=== PATIENT | female | born 1965 | race Caucasian/White ===

== ENCOUNTER 2022-03-29 16:02 | Inpatient (IN) ==
[2022-03-29] MEDS ORDERED: ONDANSETRON INJ 2 MG/ML 2 ML VIAL IV STA (16:37)
[2022-03-29] MEDS ORDERED: SODIUM CHLORIDE 0.9% 1000ML 500 ML IV ONE (16:38)
--- NOTE | 2022-03-29 16:41 | Emergency Department Note ---
Impression & Plan Colonic mass, Elevated LFTs, Liver masses, Anemia, Thrombocytosis, Lung metastases ED Provider Note NAME: SANJAY MOONEY AGE: 57 SEX: F : 1965 ARRIVES VIA: Walk-In INFORMANT: [Patient][, ] ED PROVIDER(S): [Satish Calzada MD] Chief Complaint: Abdominal fullness, mass, nausea vomiting HPI: Patient presents due to concern for abdominal pain with associated nausea vomiting going on over the last 3 weeks. Patient has noticed a mass or a hardened area in the mid abdomen. Patient feels as though she does have vomiting when she eats. The patient does still have her gallbladder. Patient does have exertional fatigue. No chest pains. No cough or fever. Patient has had the nausea vomiting. No changes in diet the patient denies any alcohol tobacco or drug use. The patient does have some associated pain in the upper abdomen described as achy and nonradiating. No recent falls or trauma. Patient is visiting from the [facility] over the . Because of the symptoms she presented with her mother bedside. ROS: See HPI for pertinent positives and negatives. A total of 10 systems were reviewed and otherwise negative. Past medical history: See below Surgical history: See below Social history: See below Physical Exam: GENERAL: NAD, [wearing a mask,] non-toxic. EYE EXAM: Scleral icterus noted. PERRL, no anisocoria and EOM's grossly intact w/o pain. NECK: Supple, no nuchal rigidity, no adenopathy, non-tender. No signs of meningismus. FROM of the neck with good chin to chest and neck extension. No stridor. LUNGS: Clear to auscultation. Normal chest wall mechanics. HEART: NSR, no MRG. ABDOMEN: Abdomen soft, distention and fullness in the upper and right upper quadrant, normo-active bowel sounds, no masses, no rebound or guarding. BACK: No CVA TTP. SKIN: No rashes and no bruising. UPPER EXTREMITIES: Upper extremities are grossly normal. LOWER EXTREMITIES: Grossly normal, 1-2+ symmetric bilateral lower extremity edema. No calf pain or erythema. Neurovascular intact distally with soft compartments and no crepitus. NEURO EXAM: A&O x3, cranial nerves II-XII grossly intact, normal speech, moves all 4 extremities. Differential diagnoses: Infection, dehydration, metabolic abnormality, hypo/hyperglycemia, electrolyte disturbance, anemia, hypoxia, cardiac sources, intracerebral event, toxicologic, neurologic, as well as other pathologies. Course: Patient was seen and evaluated the bedside. Full history physical exam was performed. EKG interpreted by me Normal sinus rhythm, rate of 79, normal intervals normal axis no ST elevations. Imaging Studies: See Below Cardiac monitoring: An order was placed for continuous cardiac monitoring. The monitor shows a rate of [] with [] rhythm. MDM: Patient was seen due to concern for abdominal fullness. Patient may have a mass on exam versus fullness of the liver. Patient did have blood work completed. along with troponin BNP chest x-ray and a CT of the abdomen pelvis. The patient's blood work shows white count of 20 [place] patient was ordered empiric antibiotics. Hemoglobin 9. The patient's platelet count does show thrombocytosis at 802,000. Hyponatremia at 128. The patient does have elevated bilirubin at 5.5. BNP is not elevated. Trace elevation in troponin. The patient CT abdomen pelvis does show concern for likely primary colon malignancy with metastatic disease to the bases of the lungs as well as the liver. P heparin at this time. Do believe the patient may haveatient's EKG is nonischemic. Patient does have trace elevation in troponin. Do not believe the patient requires heparin at this time. I did speak the on-call patient admitting representative Dr. Samuel who recommended obtaining a CEA level and CA 19-9 level. These were to be conveyed to the hospitalist service. He did state that they would talk and discuss coordinating a colonoscopy for biopsy. Given these concerning findings I did speak to the on-call hospitalist Dr. Clancy and the patient was admitted to the medicine service. Past Med/Surg History Social History Smoking Status: Former smoker Second Hand Exposure: No; Do You Dip or Chew Tobacco: No; Tobacco Cessation Education Requested by Patient: No Hx Alcohol Use: Yes Alcohol type: wine Hx Substance Use: No Preferred Language: Icelandic Communication Ability: Effective Cake Stripper Required: No Beliefs That Will Affect Care: None Current Living Situation: Alone Other Information That Helps Us Care for You: No Feels Safe at Home: Yes and No Is there a partner from a previous relationship who is making you feel unsafe now?: No Any Concerns about Your Family Situation: No Would You Like to Speak to Someone About Your Situation: No Safety Concerns: Feels Safe At This Time Assistive Devices: None Allergies Allergies Allergy/AdvReac Type Severity Reaction Status Date / Time No Known Allergies Allergy Verified 03/29/22 17:24 Home Meds Home Medications Medication Instructions Recorded Confirmed aripiprazole 5 mg tablet 5 mg PO DAILY 03/29/22 03/29/22 escitalopram oxalate 20 mg tablet 20 mg PO DAILY 03/29/22 03/29/22 lamotrigine 100 mg tablet 100 mg PO DAILY 03/29/22 03/29/22 Results & Data (ED) Vital Signs Vital Signs - 24 hr 03/29/22 16:05 03/29/22 16:37 03/29/22 18:03 Temperature 36.4 C L Temperature Source Temporal Artery Scan Pulse Rate 105 H 68 Pulse Rate [Apical] 76 Pulse Rhythm [Apical] Respiratory Rate 20 18 18 Respiratory Effort / Characteristics Non-Labored Spontaneous Non-Labored Respiratory Depth Normal Normal Respiratory Pattern Regular Blood Pressure 145/91 H Blood Pressure [Right Arm] 148/82 H Blood Pressure Mean 109 Blood Pressure Mean [Right Arm] 104 Pulse Oximetry 98 96 94 Oxygen Delivery Method Room Air Room Air Room Air Sepsis Recent Fever Within 48 Hours No Sepsis New/Unexplained Change in Mental Status No Sepsis Action Taken by Nursing No Action Required 03/29/22 20:03 Temperature Temperature Source Pulse Rate Pulse Rate [Apical] 80 Pulse Rhythm [Apical] Regular Respiratory Rate 18 Respiratory Effort / Characteristics Non-Labored Respiratory Depth Normal Respiratory Pattern Blood Pressure Blood Pressure [Right Arm] 138/86 Blood Pressure Mean Blood Pressure Mean [Right Arm] 103 Pulse Oximetry 95 Oxygen Delivery Method Room Air Sepsis Recent Fever Within 48 Hours Sepsis New/Unexplained Change in Mental Status Sepsis Action Taken by [facility] Medications Current Medication List: was personally reviewed by me Laboratory Data Attestation: I reviewed the patient's lab results. Result diagrams: 03/30/22 05:22 03/30/22 05:22 Lab Results 03/29/22 03/29/22 03/29/22 Range/Units 16:43 16:43 16:43 WBC 20.95 H (4.8-10.8) K/ul RBC 3.50 L (3.93-5.22) M/uL Hgb 9.1 L (12.0-16.0) g/dl POC Hgb (12.0-16.0) g/dl Hct 28.5 L (34.1-44.9) % POC Hct (37-47) % MCV 81.4 (80.0-100.0) fL MCH 26.0 (25.0-34.0) pg MCHC 31.9 L (32.0-36.0) g/dL RDW Std Deviation 68.8 H (36.4-46.3) fL RDW Coeff of Josef 23.5 H (11.5-14.5) % Plt Count 800 H (130-400) K/uL MPV 8.9 L (9.4-12.3) fL Immature Gran % (Auto) 0.8 % Neut % (Auto) 81.1 % Lymph % (Auto) 11.1 % Boone % (Auto) 6.8 % Eos % (Auto) 0.1 % Baso % (Auto) 0.1 % Neut # (Auto) 16.99 H (1.4-6.5) K/uL Lymph # (Auto) 2.32 (1.2-3.4) K/uL Boone # (Auto) 1.42 H (0.24-0.82) K/uL Eos # (Auto) 0.03 (0-0.50) K/uL Baso # (Auto) 0.03 (0-0.2) K/uL Immature Gran # (Auto) 0.16 H (0.00-0.02) K/uL Polychromasia 1+ Anisocytosis Present Target Cells 1+ POC Sodium (135-144) mmol/L Sodium 128 L (136-145) mmol/L POC Potassium (3.3-5.0) mmol/L Potassium 3.6 (3.5-5.1) mmol/L POC Chloride (101-112) mmol/L Chloride 95 L (98-107) mmol/L Carbon Dioxide 21 (21-32) mmol/L POC Total CO2 (24-31) mmol/L Anion Gap 12 H (3-11) POC Anion Gap (16-25) mmol/L POC BUN (7-18) mg/dl BUN 34 H (6-23) mg/dl Creatinine 1.34 H (0.6-1.2) mg/dl POC Creatinine (0.6-1.3) mg/dl Est Cr Clr Drug Dosing 36.0 ml/min Est GFR ( Amer) 50.8 ml/min Est GFR (Non-Af Amer) 43.9 ml/min BUN/Creatinine Ratio 25.4 H (10-20) Glucose 113 H (70-99(Fasting)) mg/dl POC Glucose (other) (70-99) mg/dl Calcium 9.1 (8.5-10.1) mg/dl POC Ioniz Calcium David (1.12-1.32) mmol/l Total Bilirubin 5.5 H (0.2-1.0) mg/dl AST 153 H (13-39) U/L ALT 96 H (7-52) U/L Alkaline Phosphatase 1191 H (34-104) U/L Troponin I High Sens 28.4 H (0-14) pg/ml B-Natriuretic Peptide 64 (0-100) pg/ml Total Protein 7.2 (6.0-8.3) gm/dl Albumin 2.7 L (3.4-5.0) gm/dl Globulin 4.5 H (2.5-4.0) gm/dl Albumin/Globulin Ratio 0.6 L (0.9-2) Lipase 5 L (11-82) U/L 03/29/ Range/Units 16:47 WBC (4.8-10.8) K/ul RBC (3.93-5.22) M/uL Hgb (12.0-16.0) g/dl POC Hgb 10.9 L (12.0-16.0) g/dl Hct (34.1-44.9) % POC Hct 32 L (37-47) % MCV (80.0-100.0) fL MCH (25.0-34.0) pg MCHC (32.0-36.0) g/dL RDW Std Deviation (36.4-46.3) fL RDW Coeff of Josef (11.5-14.5) % Plt Count (130-400) K/uL MPV (9.4-12.3) fL Immature Gran % (Auto) % Neut % (Auto) % Lymph % (Auto) % Boone % (Auto) % Eos % (Auto) % Baso % (Auto) % Neut # (Auto) (1.4-6.5) K/uL Lymph # (Auto) (1.2-3.4) K/uL Boone # (Auto) (0.24-0.82) K/uL Eos # (Auto) (0-0.50) K/uL Baso # (Auto) (0-0.2) K/uL Immature Gran # (Auto) (0.00-0.02) K/uL Polychromasia Anisocytosis Target Cells POC Sodium 132 L (135-144) mmol/L Sodium (136-145) mmol/L POC Potassium 3.7 (3.3-5.0) mmol/L Potassium (3.5-5.1) mmol/L POC Chloride 100 L (101-112) mmol/L Chloride (98-107) mmol/L Carbon Dioxide (21-32) mmol/L POC Total CO2 23 L (24-31) mmol/L Anion Gap (3-11) POC Anion Gap 14.0 L (16-25) mmol/L POC BUN 35 H (7-18) mg/dl BUN (6-23) mg/dl Creatinine (0.6-1.2) mg/dl POC Creatinine 1.4 H (0.6-1.3) mg/dl Est Cr Clr Drug Dosing ml/min Est GFR ( Amer) ml/min Est GFR (Non-Af Amer) ml/min BUN/Creatinine Ratio (10-20) Glucose (70-99(Fasting)) mg/dl POC Glucose (other) 125 H (70-99) mg/dl Calcium (8.5-10.1) mg/dl POC Ioniz Calcium David 1.15 (1.12-1.32) mmol/l Total Bilirubin (0.2-1.0) mg/dl AST (13-39) U/L ALT (7-52) U/L Alkaline Phosphatase (34-104) U/L Troponin I High Sens (0-14) pg/ml B-Natriuretic Peptide (0-100) pg/ml Total Protein (6.0-8.3) gm/dl Albumin (3.4-5.0) gm/dl Globulin (2.5-4.0) gm/dl Albumin/Globulin Ratio (0.9-2) Lipase (11-82) U/L Administered Medications Aripiprazole (Aripiprazole 5 Mg Tab) 5 mg PO DAILY LATESHA Stop: 04/29/22 08:59 Last Admin: 03/30/22 08:13 Dose: 5 mg Documented By: MILE Escitalopram Oxalate (Escitalopram Oxalate 20 Mg Tab) 20 mg PO DAILY LATESHA Stop: 04/29/22 08:59 Last Admin: 03/30/22 08:13 Dose: 20 mg Documented By: MILE Dextrose/Sodium Chloride (D5w And 1/2nss) 1,000 mls @ 100 mls/hr IV .Q10H LATESHA Stop: 04/28/22 21:38 Last Admin: 03/30/22 10:59 Dose: 100 mls/hr Documented By: Infusion: 03/30/22 09:11 Dose: 100 mls/hr Documented By: Infusion: 03/30/22 06:16 Dose: 100 mls/hr Documented By: Infusion: 03/29/22 23:27 Dose: 100 mls/hr Documented By: Infusion: 03/29/22 22:43 Dose: 0 mls/hr Documented By: Admin: 03/29/22 22:27 Dose: 100 mls/hr Documented By: ITZEL Piperacillin Sod/Tazobactam (Sod 3.375 gm/ Dextrose) 115 mls @ 28.75 mls/hr IV Q8H LATESHA; Protocol Stop: 04/09/22 01:59 Last Infusion: 03/30/22 12:36 Dose: 28.8 mls/hr Documented By: Admin: 03/30/22 11:18 Dose: 28.8 mls/hr Documented By: Infusion: 03/30/22 06:09 Dose: 0 mls/hr Documented By: Admin: 03/30/22 01:36 Dose: 28.8 mls/hr Documented By: ITZEL Lamotrigine (Lamotrigine 100 Mg Tab) 100 mg PO DAILY LATESHA Stop: 04/29/22 08:59 Last Admin: 03/30/22 08:14 Dose: 100 mg Documented By: MILE Morphine Sulfate (Morphine Sulfate 4 Mg/Ml 1 Ml Carp\Vial) 3 mg IV Q4H PRN PRN Reason: Pain Stop: 04/12/22 21:38 Last Admin: 03/30/22 08:09 Dose: 3 mg Documented By: Admin: 03/29/22 22:26 Dose: 3 mg Documented By: ITZEL Discontinued Medications Sodium Chloride (Nss 1000ml) 500 mls @ 999 mls/hr IV .Q31M ONE Stop: 03/29/22 17:08 Last Infusion: 03/29/22 17:25 Dose: 0 mls/hr Documented By: Admin: 03/29/22 16:47 Dose: 999 mls/hr Documented By: SILVIANO Piperacillin Sod/Tazobactam Sod (Zosyn) 4.5 gm in 120 mls @ 240 mls/hr IV NOW ONE Stop: 03/29/22 17:55 Last Admin: 03/29/22 20:10 Dose: Not Given Documented By: SILVIANO Potassium Chloride (K Landen / Wtr) 10 meq in 100 mls @ 100 mls/hr IV Q1H LATESHA Stop: 03/30/22 10:29 Last Infusion: 03/30/22 12:36 Dose: 0 mls/hr Documented By: Admin: 03/30/22 11:04 Dose: 100 mls/hr Documented By: Infusion: 03/30/22 10:30 Dose: 100 mls/hr Documented By: Admin: 03/30/22 09:30 Dose: 100 mls/hr Documented By: MILE Ioversol (Optiray 350 100ml) 83 ml IV ONCE ONE Stop: 03/29/22 18:18 Last Admin: 03/29/22 18:20 Dose: 83 ml Documented By: HU Ondansetron HCl (Ondansetron Inj 2 Mg/Ml 2 Ml Vial) 4 mg IV NOW STA Stop: 03/29/22 16:38 Last Admin: 03/29/22 16:48 Dose: 4 mg Documented By: SILVIANO Piperacillin Sod/Tazobactam Sod (Piperacillin/Tazobactam 4.5 Gm/120ml D5w) Confirm Administered Dose 4.5 gm IV .STK-MED ONE Stop: 03/29/22 20:07 Last Admin: 03/29/22 20:09 Dose: 4.5 gm Documented By: SILVIANO Imaging Data Radiologist's Impression: Abdomen/Pelvis CT 03/29/22 16:37 CT SCAN OF THE ABDOMEN AND PELVIS WITH IV CONTRAST CLINICAL HISTORY: Epigastric abdominal pain. COMPARISON STUDY: No priors. TECHNIQUE: Following the IV administration of 83 cc of Optiray 350, CT scan of the abdomen and pelvis is performed from the lung bases to the proximal femora. Images are reviewed in the axial, sagittal, and coronal planes. IV contrast was administered without complication. A dose lowering technique was utilized adhering to the principles of ALARA. CT DOSE: 291.18 mGy.cm FINDINGS: Lung bases: The heart is normal in size and without pericardial effusion. There are numerous (greater than 15) pulmonary nodules CT of both lung bases. These likely represent metastatic disease. The largest nodule is seen in the right l ower lobe in image #16 measures 1.4 cm. A 1.0 cm left lower lobe nodule is seen image #36. There is no airspace consolidation typical for pneumonia or pleural effusion. Liver: The contrast-enhanced liver is enlarged and heterogeneous, measuring 25.2 cm in length. The liver is diffusely infiltrated by confluent multifocal metastatic disease. A auto claim representative right lobe lesion on image #80 measures 7.5 cm. There is no intrahepatic biliary ductal dilatation. There is narrowing of the right and left lobe portal branches secondary to large hepatic mass lesions. The vessels remain patent with no intraluminal thrombus. Gallbladder: Gallbladder wall thickening is nonspecific and likely related to adjacent hepatocellular disease. There is no CT evidence of acute cholecystitis. Spleen: Normal in size and attenuation. Pancreas: Unremarkable. Adrenal glands: An indeterminate left adrenal nodule measures up to 1.4 cm. Kidneys: The contrast enhanced kidneys are normal in size and without hydronephrosis. The kidneys enhance heterogeneously. Abdominal vasculature: The abdominal aorta is normal in course and caliber noting moderate atherosclerotic calcification. Bowel: There is a mass lesion of the proximal ascending colon seen on axial image #280. This measures at least 5.5 cm maximum dimension and causes colocolic intussusception. There is no upstream obstruction. The small bowel loops are normal in caliber. The appendix is normal as visualized seen on image #319 Peritoneum: There is a small volume of abdominopelvic ascites. No intraperitoneal free air is seen. There is a fat-containing umbilical hernia. Lymphadenopathy: Mildly enlarged upper abdominal lymph nodes likely represent metastatic disease. A gastrohepatic node on image #196 measures 1.5 cm in short axis. Pelvic viscera: The bladder, uterus, and adnexa are normal as visualized. Skeletal structures: No lytic or blastic lesions are clearly seen. There are bilateral pars defects at L5 with moderate disc space narrowing and minimal anterolisthesis of L5-S1. IMPRESSION: 1. There is an approximately 5 cm mass lesion of the ascending colon. A colonic neoplasm is the diagnosis of exclusion. 2. The liver is enlarged and diffusely infiltrated by hepatic metastatic disease. 3. Multifocal pulmonary metastatic disease is seen at the lung bases. 4. Metastatic lymphadenopathy is seen in the upper abdomen. 5. The colonic mass causes colocolonic intussusception. No obstruction is seen. 6. Small volume of abdominopelvic ascites. 7. The kidneys enhance heterogeneously. Correlate with clinical findings and urinalysis. 8. Additional findings as above. ACT 112: Negative or not required by law. Electronically signed by: Rebel Johansen M.D. 03/29/2022 6:34 PM Discharge Plan Visit Data Chief Complaint: Abdominal Pain Stated Complaint: ABDOM PAIN, HARD SPOT ED Provider: Satish Calzada Discharge Problem: Colonic mass, Elevated LFTs, Liver masses, Anemia, Thrombocytosis, Lung metastases Patient Disposition: Admitted As Inpatient Discharge Instructions Interventions: ED Discharge Assessment Last Done: 03/29/22 22:32
[2022-03-29 16:51] LABS: Basophils # (auto) 0.03 K/uL (0-0.2); Basophils % (auto) 0.1 %; Eosinophils # (auto) 0.03 K/uL (0-0.50); Eosinophils % (auto) 0.1 %; Hematocrit (blood only) 28.5 % (34.1-44.9); Hemoglobin 9.1 g/dl (12.0-16.0); Immature Granulocytes # (auto) 0.16 K/uL (0.00-0.02); Immature Granulocytes % (auto) 0.8 %; Lymphocytes # (auto) 2.32 K/uL (1.2-3.4); Lymphocytes % (auto) 11.1 %; Mean Corpuscular Hgb Conc 31.9 g/dL (32.0-36.0); Mean Corpuscular Volume 81.4 fL (80.0-100.0); Mean Platelet Volume 8.9 fL (9.4-12.3); Monocytes # (auto) 1.42 K/uL (0.24-0.82); Monocytes % (auto) 6.8 %; Neutrophils # (auto) 16.99 K/uL (1.4-6.5); Neutrophils % (auto) 81.1 %; Platelet Count 800 K/uL (130-400); RDW Coefficient of Variation 23.5 % (11.5-14.5); RDW Standard Deviation 68.8 fL (36.4-46.3); White Blood Count 20.95 K/ul (4.8-10.8)
[2022-03-29 17:01] LABS: iSTAT Creatinine 1.4 mg/dl (0.6-1.3); iSTAT Hemoglobin 10.9 g/dl (12.0-16.0); iSTAT Ionized Calcium 1.15 mmol/l (1.12-1.32); iSTAT Potassium 3.7 mmol/L (3.3-5.0)
[2022-03-29 17:11] LABS: Albumin Globulin Ratio 0.6 (0.9-2); Albumin Level 2.7 gm/dl (3.4-5.0); BUN Creatinine Ratio 25.4 (10-20); Bilirubin,Total 5.5 mg/dl (0.2-1.0); Calcium 9.1 mg/dl (8.5-10.1); Est GFR (African American) 50.8 ml/min; Est GFR (Non-African American) 43.9 ml/min; Globulin 4.5 gm/dl (2.5-4.0); Potassium 3.6 mmol/L (3.5-5.1); Total Protein 7.2 gm/dl (6.0-8.3)
[2022-03-29 17:17] LABS: Troponin I High Sensitivity 28.4 pg/ml (0-14)
[2022-03-29 17:19] LABS: Anisocytosis Present; Polychromasia 1+; Target Cells 1+
[2022-03-29] MEDS ORDERED: PIPERACILLIN/TAZOBACTAM 4.5 GM/120 ML BAG IV ONE (17:26)
[2022-03-29] MEDS ORDERED: OPTIRAY 350 100ml IV ONE (18:17)
--- NOTE | 2022-03-29 18:36 | CT Scan Report ---
CT SCAN OF THE ABDOMEN AND PELVIS WITH IV CONTRAST CLINICAL HISTORY: Epigastric abdominal pain. COMPARISON STUDY: No priors. TECHNIQUE: Following the IV administration of 83 cc of Optiray 350, CT scan of the abdomen and pelvi s is performed from the lung bases to the proximal femora. Images are reviewed in the axial, sagittal , and coronal planes. IV contrast was administered without complication. A dose lowering technique wa s utilized adhering to the principles of ALARA. CT DOSE: 291.18 mGy.cm FINDINGS: Lung bases: The heart is normal in size and without pericardial effusion. There are numerous (greater than 15) pulmonary nodules CT of both lung bases. These likely represent metastatic disease. The lar gest nodule is seen in the right lower lobe in image #16 measures 1.4 cm. A 1.0 cm left lower lobe no dule is seen image #36. There is no airspace consolidation typical for pneumonia or pleural effusion. Liver: The contrast-enhanced liver is enlarged and heterogeneous, measuring 25.2 cm in length. The li melchor is diffusely infiltrated by confluent multifocal metastatic disease. A sales development representative right lobe lesion on image #80 measures 7.5 cm. There is no intrahepatic biliary ductal dilatation. There is cameron rowing of the right and left lobe portal branches secondary to large hepatic mass lesions. The vessel s remain patent with no intraluminal thrombus. Gallbladder: Gallbladder wall thickening is nonspecific and likely related to adjacent hepatocellular disease. There is no CT evidence of acute cholecystitis. Spleen: Normal in size and attenuation. Pancreas: Unremarkable. Adrenal glands: An indeterminate left adrenal nodule measures up to 1.4 cm. Kidneys: The contrast enhanced kidneys are normal in size and without hydronephrosis. The kidneys enh ance heterogeneously. Abdominal vasculature: The abdominal aorta is normal in course and caliber noting moderate atheroscle rotic calcification. Bowel: There is a mass lesion of the proximal ascending colon seen on axial image #280. This measures at least 5.5 cm maximum dimension and causes colocolic intussusception. There is no upstream obstruc tion. The small bowel loops are normal in caliber. The appendix is normal as visualized seen on imag e #319 Peritoneum: There is a small volume of abdominopelvic ascites. No intraperitoneal free air is seen. T here is a fat-containing umbilical hernia. Lymphadenopathy: Mildly enlarged upper abdominal lymph nodes likely represent metastatic disease. A g astrohepatic node on image #196 measures 1.5 cm in short axis. Pelvic viscera: The bladder, uterus, and adnexa are normal as visualized. Skeletal structures: No lytic or blastic lesions are clearly seen. There are bilateral pars defects a t L5 with moderate disc space narrowing and minimal anterolisthesis of L5-S1. IMPRESSION: 1. There is an approximately 5 cm mass lesion of the ascending colon. A colonic neoplasm is the diagn osis of exclusion. 2. The liver is enlarged and diffusely infiltrated by hepatic metastatic disease. 3. Multifocal pulmonary metastatic disease is seen at the lung bases. 4. Metastatic lymphadenopathy is seen in the upper abdomen. 5. The colonic mass causes colocolonic intussusception. No obstruction is seen. 6. Small volume of abdominopelvic ascites. 7. The kidneys enhance heterogeneously. Correlate with clinical findings and urinalysis. 8. Additional findings as above. ACT 112: Negative or not required by law. Electronically signed by: Rebel Johansen M.D. 03/29/2022 6:34 PM
[2022-03-29] MEDS ORDERED: PIPERACILLIN/TAZOBACTAM 4.5 GM/120ML D5W IV ONE (20:06)
[2022-03-29] MEDS ORDERED: ONDANSETRON INJ 2 MG/ML 2 ML VIAL IV PRN (21:39)
[2022-03-29 21:49] LABS: Appearance Urine Cloudy (Clear); Bacteria Urine Automated Negative (Negative); Blood Urine Negative (Negative); Color Urine Dark Yellow; Epithelial Cell Urine Auto 20-30 /lpf (0-5); Glucose Urine UA Negative (Negative); Ketones Urine Negative (Negative); Leukocyte Esterase Urine Trace (Negative); Nitrite Urine Positive (Negative); Protein Urine 1+ (Negative); Specific Gravity Urine 1.042 (1.000-1.030); Urobilinogen Urine Negative (Negative); pH Urine 5.5 (4.5-7.5)
[2022-03-29 21:54] LABS: Bilirubin Urine 2+ (Negative)
[2022-03-29] MEDS ORDERED: FLUARIX QUADRIVALENT 0.5 ML SYR IM ONE (22:00)
[2022-03-29 22:04] LABS: Amorphous Sediment Urine Present (None Prsent); RBC Urine Automated 0-4 /hpf (0-4)
[2022-03-29] MEDS: MoRPHine SULFATE 4 MG/ML 1 ML CARP\\VIAL IV PRN (22:26)
[2022-03-29] MEDS: D5W AND 1/2NSS 1,000 ML IV SCH (22:27)
--- NOTE | 2022-03-29 22:39 | History and Physical Report ---
DATE OF ADMISSION: 03/29/2022. CHIEF COMPLAINT: Abdominal pain, nausea, vomiting. HISTORY OF PRESENT ILLNESS: A 57-year-old female with past medical history significant for depression, presents with abdominal pain, nausea, vomiting. 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 Her doctors are in [place]. Her mother also lives part-time in [place] and part-time in [place]. She came for Thanksgiving yesterday to her mother's place and because of her symptoms, her mother brought her to the hospital today. The patient says she is having dull aching abdominal pain, mostly epigastric and left upper quadrant region, 4/10 in severity, constant pain for last couple of months . Also nausea dn not able to keep anything don for last few weeks. Lost 20 pounds in last 2-3 months.Denies any blood in stools or black stools. No constipation or diarrhea. Normal bladder movements. She says she is micturating a lot, but denies any hematuria. She has some swelling in the legs, says that this is there for last couple of weeks. Denies any chest pain, no shortness of breath, no headache, no runny nose, no sore throat, no cough, no fevers. Currently, resting comfortably and hemodynamically stable. ALLERGIES: No known drug allergies. PAST MEDICAL HISTORY: As mentioned above. PAST SURGICAL HISTORY: None as per patient. MEDICATIONS: The patient is on aripiprazole 5 mg p.o. daily, Lexapro 20 mg p.o. daily, Lamictal 100 mg p.o. daily. FAMILY HISTORY: Significant for mother has rheumatoid arthritis, back problems. Brother has diabetes, [place] in his 40s.. Father has diabetes, hyperlipidemia. Her younger sister had breast cancer at age of 27. SOCIAL HISTORY: Denies smoking. Alcohol, rarely. No drug use. REVIEW OF SYSTEMS: As per HPI. Rest of review of systems is negative. PHYSICAL EXAMINATION: GENERAL: The patient is of moderate build, not in acute distress. VITAL SIGNS: Temperature 36.4, pulse 80, respiratory rate 18, blood pressure 138/86, oxygen 95% on room air. HEENT: Pupils equal, round and reactive to light. Oral mucosa moist. NECK: No JVD, no neck masses. CARDIOVASCULAR: S1 and S2 heard. Regular rate and rhythm. No murmur, no gallop. RESPIRATORY SYSTEM: Normal AP diameter. No accessory muscle use. No wheezing, no crackles. ABDOMEN: Soft, bowel sounds present. Tenderness in the left upper quadrant region. No guarding, no rigidity, no distention. CENTRAL NERVOUS SYSTEM: Cranial nerves II through XII grossly intact, nonfocal. EXTREMITIES: Pedal edema present, no erythema seen. LABORATORY DATA: WBC 20.95, hemoglobin 9.1, hematocrit 28.5, platelets 800. Sodium 128, potassium 3.6, chloride 95, BUN 34, creatinine 1.34, serum glucose 113, calcium 9.1, total bilirubin 5.5, AST 153, ALT 196, alkaline phosphatase 1191, troponin I high sensitivity 28. Lipase 5. SARS-CoV-2 rapid test negative. IMAGING DATA: CT of abdomen and pelvis with IV contrast, approximately 5 cm mass lesion in the ascending colon. Colonic neoplasm is diagnosis of exclusion. The liver is enlarged and diffusely infiltrated with hepatic metastatic disease. Multifocal pulmonary metastatic disease is seen in the lung bases. Metastatic lymphadenopathy seen in the upper abdomen. No colonic mass or colocolonic intussusception. No obstruction is seen. Small volume of abdominopelvic ascites, Kidneys enhancing heterogeneously. Correlate with clinical findings and urinalysis. EKG: Normal sinus rhythm at a rate of 70, no acute ST changes seen. ASSESSMENT AND PLAN: This is a 57-year-old female who presents with 2 months of abdominal pain, ongoing nausea, vomiting, weight loss. 1. Abdominal pain, nausea, vomiting, elevated LFTs. CT abdomen and pelvis with IV contrast showing 5 cm ascending colon mass with diffuse hepatic metastatic disease and also pulmonary metastatic disease. Colonic neoplasm is diagnosis of exclusion, by CAT scan report. Discussed with GI that her LFTs looks like obstructive pattern. GI recommended for liver ultrasound and also IV antibiotics and plan for colonoscopy. We will keep the patient n.p.o. after midnight and on IV fluids, IV morphine p.r.n., IV antiemetics p.r.n. GI consult. 2. Anemia, probably secondary to above ongoing illness. Will get Hemoccult, iron studies, vitamin B12, folate levels. 3. Leukocytosis. On IV Zosyn. We will follow the cultures. Follow the repeat labs. 4. Hyponatremia. Sodium 128, possibly from nausea and vomiting. We will get him fluids. Will follow the repeat labs in the a.m. 5. Acute kidney injury: Creatinine 1.34. Creatinine was 0.7 in Epic labs in April 2018. Getting fluids. Follow the repeat labs in the a.m. 6. Mild elevation of troponin, mostly demand ischemia, the patient is asymptomatic. EKG is okay. We will follow the repeat troponins. 7. Depression: Continue her home medications. 8. Deep venous thrombosis prophylaxis: Sequential compression devices for now. If no procedure is planned, we will place on Lovenox. DISPOSITION: Closely monitor in medical floor. PT, OT prior to discharge. Social service to help with discharge planning. Job ID: [id number] MTDD
[2022-03-30] MEDS: PIPERACILLIN/TAZOBACTAM 3.375 GM in DEXTROSE 5% 100 ML IV SCH ×3 (01:36→18:23)
[2022-03-30] MEDS ORDERED: PIPERACILLIN/TAZOBACTAM 3.375 GM in DEXTROSE 5% 100 ML IV SCH (04:00)
[2022-03-30 05:34] LABS: Basophils # (auto) 0.03 K/uL (0-0.2); Basophils % (auto) 0.2 %; Eosinophils # (auto) 0.17 K/uL (0-0.50); Eosinophils % (auto) 1.2 %; Hemoglobin 7.6 g/dl (12.0-16.0); Immature Granulocytes # (auto) 0.08 K/uL (0.00-0.02); Immature Granulocytes % (auto) 0.6 %; Lymphocytes % (auto) 16.6 %; Mean Corpuscular Hemoglobin 25.8 pg (25.0-34.0); Mean Corpuscular Hgb Conc 30.4 g/dL (32.0-36.0); Mean Corpuscular Volume 84.7 fL (80.0-100.0); Mean Platelet Volume 8.9 fL (9.4-12.3); Monocytes # (auto) 0.99 K/uL (0.24-0.82); Monocytes % (auto) 7.1 %; Neutrophils % (auto) 74.3 %; Platelet Count 521 K/uL (130-400); RDW Coefficient of Variation 23.1 % (11.5-14.5); RDW Standard Deviation 70.2 fL (36.4-46.3); Red Blood Count 2.95 M/uL (3.93-5.22); White Blood Count 13.87 K/ul (4.8-10.8)
[2022-03-30 06:02] LABS: Troponin I High Sensitivity 22.6 pg/ml (0-14)
[2022-03-30 06:03] LABS: Anisocytosis Present; Target Cells 1+
[2022-03-30 06:06] LABS: Albumin Level 2.3 gm/dl (3.4-5.0); BUN Creatinine Ratio 21.6 (10-20); Bilirubin Direct 2.6 mg/dl (0-0.2); Bilirubin,Total 4.6 mg/dl (0.2-1.0); Calcium 8.2 mg/dl (8.5-10.1); Creatinine Clr Calc Pharmacy 35.7 ml/min; Est GFR (African American) 55.3 ml/min; Est GFR (Non-African American) 47.7 ml/min; Magnesium 2.2 mg/dl (1.7-2.4); Potassium 3.5 mmol/L (3.5-5.1)
[2022-03-30 06:21] LABS: Vitamin B12 > 1500 pg/ml (180-914)
--- NOTE | 2022-03-30 07:06 | Ultrasound Report ---
ULTRASOUND BILATERAL LOWER EXTREMITY VENOUS CLINICAL HISTORY: Lower extremity edema. COMPARISON STUDY: No priors. TECHNIQUE: Real-time, grayscale, and color Doppler sonography of the deep veins of the right and left lower extremity was performed from the inguinal crease to the calf. Compression and augmentation wer e utilized. FINDINGS: There is no sonographic evidence of deep venous thrombosis identified in the right or left lower extremity. The common femoral, superficial femoral, and popliteal veins are patent and normally compressible bilaterally. The greater saphenous vein and the profunda femoris vein at the junction w ith the common femoral vein are clear in both legs. The visualized calf veins are patent bilaterally. A popliteal cyst on the left measures 2.6 x 0.7 x 2.3 cm area IMPRESSION: 1. There is no sonographic evidence of deep venous thrombosis identified in the right or left lower e xtremity. 2. Left popliteal cyst. ACT 112: Negative or not required by law. Electronically signed by: Rebel Johansen M.D. 03/30/2022 7:05 AM
--- NOTE | 2022-03-30 07:32 | Ultrasound Report ---
ULTRASOUND RIGHT UPPER QUADRANT ABDOMEN CLINICAL HISTORY: Elevated hepatic transaminases. COMPARISON STUDY: Abdominal CT dated 03/29/2022 TECHNIQUE: Real-time, grayscale, and color flow sonography of the right upper quadrant of the abdomen was performed. Images are reviewed in the transverse and longitudinal planes. FINDINGS: Liver: The liver is enlarged, heterogeneous, and diffusely infiltrated by metastatic disease. There i s no intrahepatic biliary ductal dilatation. The main portal vein is patent. Gallbladder: Bladder wall thickening is nonspecific and likely related to adjacent hepatocellular dis ease. No shadowing gallstones are identified. There is no pericholecystic fluid. A sonographic Rodriguez 's sign is reportedly absent. The common bile duct measures up to 0.4 cm in diameter. Pancreas: Visualized portions of the pancreatic head and body are normal in appearance. Right kidney: Survey images of the right kidney demonstrate normal size and echotexture. There is no hydronephrosis. Ascites: None. IMPRESSION: 1. The liver is enlarged and diffusely infiltrated by metastatic disease. 2. No gallstones are identified. ACT 112: Negative or not required by law. Electronically signed by: Rebel Johansen M.D. 03/30/2022 7:31 AM
[2022-03-30] MEDS: MoRPHine SULFATE 4 MG/ML 1 ML CARP\\VIAL IV PRN (08:09)
[2022-03-30] MEDS: ESCITALOPRAM OXALATE 20 MG TAB PO SCH (08:13)
[2022-03-30] MEDS: ARIPiprazole 5 MG TAB PO SCH (08:13)
[2022-03-30] MEDS: lamoTRIgine 100 MG TAB PO SCH (08:14)
--- NOTE | 2022-03-30 08:26 | Hospitalist Progress Note ---
Date of Service March 30, 2022 Assessment & Plan (1) Colonic mass: (2) Liver masses: (3) Elevated LFTs: Plan 57-year-old female who presents with 2 months of abdominal pain, ongoing nausea, vomiting, weight loss. She was found to have colon mass with metastases to liver and lungs. 1. Abdominal pain, nausea, vomiting, elevated LFTs. Colon mass. Liver metastases. CT abdomen and pelvis with IV contrast showing 5 cm ascending colon mass with diffuse hepatic metastatic disease and also pulmonary metastatic disease. Colonic neoplasm is diagnosis of exclusion, by CAT scan report. Admitting provider discussed with GI that her LFTs looks like obstructive pattern. GI recommended for liver ultrasound and also IV antibiotics and plan for colonoscopy. IV fluids, IV morphine p.r.n., IV antiemetics p.r.n. GI consulted - plan for colonoscopy on Saturday, recommend also surgery consult and oncology Tumor markers ordered Surgery - no plan for surg. intervention at this time Oncology - CTA chest, IV venofer x2, follow up as outpt. w/ Dr. Meyer (who sees pt's father as well) 2. Anemia, probably secondary to above ongoing illness. Will get Hemoccult, iron studies, vitamin B12, folate levels. FOBT negative Hem/Onc following - recommend IV venofer x2 3. Leukocytosis. On IV Zosyn. We will follow the cultures. Follow the repeat labs. 4. Hyponatremia. Sodium 128 on admission, possibly from nausea and vomiting. fluids. Will follow the repeat labs 5. Acute kidney injury: Creatinine 1.34 on admission Now 1.25 . Creatinine was 0.7 in Epic labs in April 2018. Getting fluids. Follow the repeat labs 6. Mild elevation of troponin, mostly demand ischemia, the patient is asymptomatic. EKG is okay. repeated troponins - trended down 7. Depression: Continue her home medications. DVT prophylaxis: SCDs for now. Plan for colonoscopy and biopsy on Saturday DISPOSITION: medical floor Admission and Anticipated Discharge Date Admission Date: March 29, 2022 Subjective Patient seen in follow-up of nausea vomiting, new finding of colon mass, with metastases to liver, lungs Patient seen in the room, with GI Currently laying in bed, in no acute distress No fevers, chills, chest pain, shortness of breath, no abdominal pain Discussed in detail further steps, plan for colonoscopy on Saturday, further consultation with oncology Discussed with oncology, will provide IV Venofer, and will obtain CTA chest Review of Systems Review of Systems: All systems reviewed & are unremarkable except as noted in Subjective Physical Exam Physical Exam: GENERAL: The patient is of moderate build, not in acute distress. HEENT: Pupils equal, round and reactive to light. EOMI. Oral mucosa moist. NECK: No JVD, no neck masses. CARDIOVASCULAR: S1 and S2 heard. Regular rate and rhythm. No murmur, no gallop. RESPIRATORY: Normal AP diameter. No accessory muscle use. No wheezing, no crackles. ABDOMEN: Soft, bowel sounds present.+ mass at RUQ/epigastric region and RLQ. No guarding, no rigidity, no distention. NEURO:Awake alert oriented, answering questions appropriately, no facial asymmetry, moves extremities EXTREMITIES: Pedal edema present, no erythema seen. Results & Data Results & Data ([facility]) Vital Signs (Past 12 Hours) Vital Signs Temp Pulse Pulse Resp BP BP Pulse Ox 03/30/22 07:39 36.6 C 68 16 123/72 96 03/29/22 21:30 03/29/22 21:45 37.1 C 75 16 143/84 H 94 O2 Del Method 03/30/22 07:39 Room Air 03/29/22 21:30 Room Air 03/29/22 21:45 Room Air Laboratory Results 03/30/22 03/30/22 03/30/22 Range/Units 05:22 05:22 05:22 WBC 13.87 H (4.8-10.8) K/ul RBC 2.95 L (3.93-5.22) M/uL Hgb 7.6 L (12.0-16.0) g/dl POC Hgb (12.0-16.0) g/dl Hct 25.0 L (34.1-44.9) % POC Hct (37-47) % MCV 84.7 (80.0-100.0) fL MCH 25.8 (25.0-34.0) pg MCHC 30.4 L (32.0-36.0) g/dL RDW Std Deviation 70.2 H (36.4-46.3) fL RDW Coeff of Josef 23.1 H (11.5-14.5) % Plt Count 521 H (130-400) K/uL MPV 8.9 L (9.4-12.3) fL Immature Gran % (Auto) 0.6 % Neut % (Auto) 74.3 % Lymph % (Auto) 16.6 % Nye % (Auto) 7.1 % Eos % (Auto) 1.2 % Baso % (Auto) 0.2 % Neut # (Auto) 10.30 H (1.4-6.5) K/uL Lymph # (Auto) 2.30 (1.2-3.4) K/uL Nye # (Auto) 0.99 H (0.24-0.82) K/uL Eos # (Auto) 0.17 (0-0.50) K/uL Baso # (Auto) 0.03 (0-0.2) K/uL Immature Gran # (Auto) 0.08 H (0.00-0.02) K/uL Polychromasia Anisocytosis Present Target Cells 1+ POC Sodium (135-144) mmol/L Sodium 128 L (136-145) mmol/L POC Potassium (3.3-5.0) mmol/L Potassium 3.5 (3.5-5.1) mmol/L POC Chloride (101-112) mmol/L Chloride 97 L (98-107) mmol/L Carbon Dioxide 22 (21-32) mmol/L POC Total CO2 (24-31) mmol/L Anion Gap 9 (3-11) POC Anion Gap (16-25) mmol/L POC BUN (7-18) mg/dl BUN 27 H (6-23) mg/dl Creatinine 1.25 H (0.6-1.2) mg/dl POC Creatinine (0.6-1.3) mg/dl Est Cr Clr Drug Dosing 35.7 ml/min Est GFR ( Amer) 55.3 ml/min Est GFR (Non-Af Amer) 47.7 ml/min BUN/Creatinine Ratio 21.6 H (10-20) Glucose 103 H (70-99(Fasting)) mg/dl POC Glucose (other) (70-99) mg/dl Calcium 8.2 L (8.5-10.1) mg/dl POC Ioniz Calcium David (1.12-1.32) mmol/l Magnesium 2.2 (1.7-2.4) mg/dl Iron 15 L (35-150) mcg/dl TIBC 178 L (250-450) mcg/dl Unsaturated IBC 163 (155-355) mcg/dl Transferrin % Sat 8 L (15-50) % Total Bilirubin 4.6 H (0.2-1.0) mg/dl Direct Bilirubin 2.6 H (0-0.2) mg/dl AST 109 H (13-39) U/L ALT 75 H (7-52) U/L Alkaline Phosphatase 925 H (34-104) U/L Troponin I High Sens 22.6 H (0-14) pg/ml B-Natriuretic Peptide (0-100) pg/ml Total Protein 6.0 (6.0-8.3) gm/dl Albumin 2.3 L (3.4-5.0) gm/dl Globulin (2.5-4.0) gm/dl Albumin/Globulin Ratio (0.9-2) Lipase (11-82) U/L Vitamin B12 > 1500 H (180-914) pg/ml Folate 11.17 (>5.38) ng/ml Urine Color Urine Appearance (Clear) Urine pH (4.5-7.5) Ur Specific Mobile (1.000-1.030) Urine Protein (Negative) Urine Glucose (UA) (Negative) Urine Ketones (Negative) Urine Blood (Negative) Urine Nitrite (Negative) Urine Bilirubin (Negative) Urine Urobilinogen (Negative) Ur Leukocyte Esterase (Negative) Urine WBC (Auto) (0-5) /hpf Urine RBC (Auto) (0-4) /hpf U Hyaline Cast (Auto) (0-5) /lpf U Epithel Cells (Auto) (0-5) /lpf Urine Bacteria (Auto) (Negative) Amorphous Sediment (None Prsent) Urine Yeast SARS-CoV-2, RNA, NAAT (NEGATIVE) 03/29/22 03/29/22 03/29/22 Range/Units Unknown 21:00 16:47 WBC (4.8-10.8) K/ul RBC (3.93-5.22) M/uL Hgb (12.0-16.0) g/dl POC Hgb 10.9 L (12.0-16.0) g/dl Hct (34.1-44.9) % POC Hct 32 L (37-47) % MCV (80.0-100.0) fL MCH (25.0-34.0) pg MCHC (32.0-36.0) g/dL RDW Std Deviation (36.4-46.3) fL RDW Coeff of Josef (11.5-14.5) % Plt Count (130-400) K/uL MPV (9.4-12.3) fL Immature Gran % (Auto) % Neut % (Auto) % Lymph % (Auto) % Nye % (Auto) % Eos % (Auto) % Baso % (Auto) % Neut # (Auto) (1.4-6.5) K/uL Lymph # (Auto) (1.2-3.4) K/uL Nye # (Auto) (0.24-0.82) K/uL Eos # (Auto) (0-0.50) K/uL Baso # (Auto) (0-0.2) K/uL Immature Gran # (Auto) (0.00-0.02) K/uL Polychromasia Anisocytosis Target Cells POC Sodium 132 L (135-144) mmol/L Sodium (136-145) mmol/L POC Potassium 3.7 (3.3-5.0) mmol/L Potassium (3.5-5.1) mmol/L POC Chloride 100 L (101-112) mmol/L Chloride (98-107) mmol/L Carbon Dioxide (21-32) mmol/L POC Total CO2 23 L (24-31) mmol/L Anion Gap (3-11) POC Anion Gap 14.0 L (16-25) mmol/L POC BUN 35 H (7-18) mg/dl BUN (6-23) mg/dl Creatinine (0.6-1.2) mg/dl POC Creatinine 1.4 H (0.6-1.3) mg/dl Est Cr Clr Drug Dosing ml/min Est GFR ( Amer) ml/min Est GFR (Non-Af Amer) ml/min BUN/Creatinine Ratio (10-20) Glucose (70-99(Fasting)) mg/dl POC Glucose (other) 125 H (70-99) mg/dl Calcium (8.5-10.1) mg/dl POC Ioniz Calcium David 1.15 (1.12-1.32) mmol/l Magnesium (1.7-2.4) mg/dl Iron (35-150) mcg/dl TIBC (250-450) mcg/dl Unsaturated IBC (155-355) mcg/dl Transferrin % Sat (15-50) % Total Bilirubin (0.2-1.0) mg/dl Direct Bilirubin (0-0.2) mg/dl AST (13-39) U/L ALT (7-52) U/L Alkaline Phosphatase (34-104) U/L Troponin I High Sens (0-14) pg/ml B-Natriuretic Peptide (0-100) pg/ml Total Protein (6.0-8.3) gm/dl Albumin (3.4-5.0) gm/dl Globulin (2.5-4.0) gm/dl Albumin/Globulin Ratio (0.9-2) Lipase (11-82) U/L Vitamin B12 (180-914) pg/ml Folate (>5.38) ng/ml Urine Color Dark Yellow Urine Appearance Cloudy A (Clear) Urine pH 5.5 (4.5-7.5) Ur Specific Mobile 1.042 H (1.000-1.030) Urine Protein 1+ H (Negative) Urine Glucose (UA) Negative (Negative) Urine Ketones Negative (Negative) Urine Blood Negative (Negative) Urine Nitrite Positive A (Negative) Urine Bilirubin 2+ H (Negative) Urine Urobilinogen Negative (Negative) Ur Leukocyte Esterase Trace H (Negative) Urine WBC (Auto) 1-5 (0-5) /hpf Urine RBC (Auto) 0-4 (0-4) /hpf U Hyaline Cast (Auto) 1-5 (0-5) /lpf U Epithel Cells (Auto) 20-30 H (0-5) /lpf Urine Bacteria (Auto) Negative (Negative) Amorphous Sediment Present A (None Prsent) Urine Yeast Not Reportable SARS-CoV-2, RNA, NAAT NEGATIVE (NEGATIVE) 03/29/22 03/29/22 03/29/22 Range/Units 16:43 16:43 16:43 WBC 20.95 H (4.8-10.8) K/ul RBC 3.50 L (3.93-5.22) M/uL Hgb 9.1 L (12.0-16.0) g/dl POC Hgb (12.0-16.0) g/dl Hct 28.5 L (34.1-44.9) % POC Hct (37-47) % MCV 81.4 (80.0-100.0) fL MCH 26.0 (25.0-34.0) pg MCHC 31.9 L (32.0-36.0) g/dL RDW Std Deviation 68.8 H (36.4-46.3) fL RDW Coeff of Josef 23.5 H (11.5-14.5) % Plt Count 800 H (130-400) K/uL MPV 8.9 L (9.4-12.3) fL Immature Gran % (Auto) 0.8 % Neut % (Auto) 81.1 % Lymph % (Auto) 11.1 % Nye % (Auto) 6.8 % Eos % (Auto) 0.1 % Baso % (Auto) 0.1 % Neut # (Auto) 16.99 H (1.4-6.5) K/uL Lymph # (Auto) 2.32 (1.2-3.4) K/uL Nye # (Auto) 1.42 H (0.24-0.82) K/uL Eos # (Auto) 0.03 (0-0.50) K/uL Baso # (Auto) 0.03 (0-0.2) K/uL Immature Gran # (Auto) 0.16 H (0.00-0.02) K/uL Polychromasia 1+ Anisocytosis Present Target Cells 1+ POC Sodium (135-144) mmol/L Sodium 128 L (136-145) mmol/L POC Potassium (3.3-5.0) mmol/L Potassium 3.6 (3.5-5.1) mmol/L POC Chloride (101-112) mmol/L Chloride 95 L (98-107) mmol/L Carbon Dioxide 21 (21-32) mmol/L POC Total CO2 (24-31) mmol/L Anion Gap 12 H (3-11) POC Anion Gap (16-25) mmol/L POC BUN (7-18) mg/dl BUN 34 H (6-23) mg/dl Creatinine 1.34 H (0.6-1.2) mg/dl POC Creatinine (0.6-1.3) mg/dl Est Cr Clr Drug Dosing 36.0 ml/min Est GFR ( Amer) 50.8 ml/min Est GFR (Non-Af Amer) 43.9 ml/min BUN/Creatinine Ratio 25.4 H (10-20) Glucose 113 H (70-99(Fasting)) mg/dl POC Glucose (other) (70-99) mg/dl Calcium 9.1 (8.5-10.1) mg/dl POC Ioniz Calcium David (1.12-1.32) mmol/l Magnesium (1.7-2.4) mg/dl Iron (35-150) mcg/dl TIBC (250-450) mcg/dl Unsaturated IBC (155-355) mcg/dl Transferrin % Sat (15-50) % Total Bilirubin 5.5 H (0.2-1.0) mg/dl Direct Bilirubin (0-0.2) mg/dl AST 153 H (13-39) U/L ALT 96 H (7-52) U/L Alkaline Phosphatase 1191 H (34-104) U/L Troponin I High Sens 28.4 H (0-14) pg/ml B-Natriuretic Peptide 64 (0-100) pg/ml Total Protein 7.2 (6.0-8.3) gm/dl Albumin 2.7 L (3.4-5.0) gm/dl Globulin 4.5 H (2.5-4.0) gm/dl Albumin/Globulin Ratio 0.6 L (0.9-2) Lipase 5 L (11-82) U/L Vitamin B12 (180-914) pg/ml Folate (>5.38) ng/ml Urine Color Urine Appearance (Clear) Urine pH (4.5-7.5) Ur Specific Mobile (1.000-1.030) Urine Protein (Negative) Urine Glucose (UA) (Negative) Urine Ketones (Negative) Urine Blood (Negative) Urine Nitrite (Negative) Urine Bilirubin (Negative) Urine Urobilinogen (Negative) Ur Leukocyte Esterase (Negative) Urine WBC (Auto) (0-5) /hpf Urine RBC (Auto) (0-4) /hpf U Hyaline Cast (Auto) (0-5) /lpf U Epithel Cells (Auto) (0-5) /lpf Urine Bacteria (Auto) (Negative) Amorphous Sediment (None Prsent) Urine Yeast SARS-CoV-2, RNA, NAAT (NEGATIVE) Medications Administered Current Inpatient Medications Aripiprazole (Aripiprazole 5 Mg Tab) 5 mg PO DAILY LATESHA Stop: 04/29/22 08:59 Last Admin: 03/30/22 08:13 Dose: 5 mg Escitalopram Oxalate (Escitalopram Oxalate 20 Mg Tab) 20 mg PO DAILY LATESHA Stop: 04/29/22 08:59 Last Admin: 03/30/22 08:13 Dose: 20 mg Dextrose/Sodium Chloride (D5w And 1/2nss) 1,000 mls @ 100 mls/hr IV .Q10H LATESHA Stop: 04/28/22 21:38 Last Infusion: 03/30/22 06:16 Dose: 100 mls/hr Piperacillin Sod/Tazobactam (Sod 3.375 gm/ Dextrose) 115 mls @ 28.75 mls/hr IV Q8H LATESHA; Protocol Stop: 04/09/22 01:59 Last Infusion: 03/30/22 06:09 Dose: Infused Lamotrigine (Lamotrigine 100 Mg Tab) 100 mg PO DAILY LATESHA Stop: 04/29/22 08:59 Last Admin: 03/30/22 08:14 Dose: 100 mg Morphine Sulfate (Morphine Sulfate 4 Mg/Ml 1 Ml Carp\Vial) 3 mg IV Q4H PRN PRN Reason: Pain Stop: 04/12/22 21:38 Last Admin: 03/30/22 08:09 Dose: 3 mg Ondansetron HCl (Ondansetron Inj 2 Mg/Ml 2 Ml Vial) 4 mg IV Q6H PRN PRN Reason: Nausea Stop: 04/28/22 21:38
[2022-03-30] MEDS: POTASSIUM CHLORIDE / WTR 10 MEQ/100 ML PLCT IV SCH ×2 (09:30→11:04)
--- NOTE | 2022-03-30 10:05 | Electrocardiogram Report ---
Test Reason : Blood Pressure : / mmHG Vent. Rate : 079 BPM Atrial Rate : 079 BPM P-R Int : 138 ms QRS Dur : 082 ms QT Int : 396 ms P-R-T Axes : 070 011 047 degrees QTc Int : 454 ms Normal sinus rhythm Normal ECG No previous ECGs available Confirmed by Chencho Scott ([id number]) on 03/30/2022 10:05:36 AM Referred By: REFERRED SELF Confirmed By:Chencho Scott
[2022-03-30] MEDS: D5W AND 1/2NSS 1,000 ML IV SCH ×2 (10:59→21:47)
--- NOTE | 2022-03-30 11:54 | Surgery Consultation ---
Date of Consultation March 30, 2022 Assessment & Plan (1) Colonic mass: (2) Liver masses: (3) Elevated LFTs: Plan 57 year-old female presented to emergency department with progressively increasing abdominal pain for past few weeks along with associated nausea and vomiting that has been present for past 2 months. 12 pound weight loss, fatigue, and shortness of breath on exertion. Found to have leukocytosis, elevated LFTs, and CT scan with 5 cm right colonic mass causing colocolonic intussusception without obstruction with diffuse hepatic lesions and pulmonary lesions and upper abdominal lymphadenopathy concerning for metastatic colon cancer. Never had colonoscopy. No family history of colorectal cancer. GI planning for colonoscopy on Saturday. Plan: Discussed with patient that we need further information prior to proceeding with any surgical intervention with colonoscopy, biopsy, and oncology evaluation given extent of liver and lung lesions. There is no evidence of obstruction on CT scan and her exam is relatively benign other than mild distention and palpa ble fixed mass in the epigastrium (likely corresponding to the 7 cm hepatic lesion) and palpable mass in the RLQ. There is no peritonitis on exam. No indication for emergent or urgent surgical intervention at this time. Oncology consultation Continue bowel prep as per GI recommendations for colonoscopy on Saturday Continue current medical management Will follow along. Discussed with Dr. Gao who agrees with above. Supervising Physician Co-Signing Physician Notes Patient seen and examined and agree the above plan. History of Present Illness Reason for Consultation: Right colon mass Requesting Physician: Nhgia Vo MD Attending Physician: Nghia Vo MD History of Present Illness Padmini is a pleasant 57 year-old female with history of depression who presented to emergency department yesterday with progressively increasing abdominal pain for last few weeks and not feeling well for last 2 months. Has been having abdominal pain, nausea, vomiting, and shortness of breath with exertion for last 2 months. State she has lost about 12 pounds in last 2 months. Bowels have been moving regularly. States she felt a lump in her upper mid abdomen but was unsure what it was. States she has never had a colonoscopy. No family history of colon cancer. States sister had breast cancer when she was 27 and . Father has history of melanoma. Denies of any other cancers. Er work-up included labs which showed leukocytosis of 20K, elevated LFTS, CT scan of abdomen and pelvis showing 5 cm right colon mass causing colocolonic intussusception without evidence of obstruction and diffuse hepatic lesions and bilateral lower pulmonary metastic lesions and upper abdominal lymphadenopathy. Allergies Allergy/AdvReac Type Severity Reaction Status Date / Time No Known Allergies Allergy Verified 03/29/22 17:24 Home Medications Medication Instructions Recorded Confirmed Type aripiprazole 5 mg tablet 5 mg PO DAILY 03/29/22 03/29/22 History escitalopram oxalate 20 mg tablet 20 mg PO DAILY 03/29/22 03/29/22 History lamotrigine 100 mg tablet 100 mg PO DAILY 03/29/22 03/29/22 History Patient History Social History Smoking Status: Former smoker Second Hand Exposure: No; Do You Dip or Chew Tobacco: No; Tobacco Cessation Education Requested by Patient: No Hx Alcohol Use: Yes Alcohol type: wine Hx Substance Use: No Preferred Language: Montserratian Communication Ability: Effective Health Advisor Required: No Beliefs That Will Affect Care: None Current Living Situation: Alone Other Information That Helps Us Care for You: No Feels Safe at Home: Yes and No Is there a partner from a previous relationship who is making you feel unsafe now?: No Any Concerns about Your Family Situation: No Would You Like to Speak to Someone About Your Situation: No Safety Concerns: Feels Safe At This Time Assistive Devices: None Review of Systems Review of Systems: All systems reviewed & are unremarkable except as noted in HPI & below Physical Exam Constitutional: WD/WN, vitals as above cooperative and comfortable; no acute distress and not ill appearing Neck: normal visual inspection and trachea midline Respiratory: normal respiratory effort; no respiratory distress, no labored breathing and no retractions Gastrointestinal (Abdomen): Inspection/Auscultation: + abdomen distended (mildly distended) Percussion/Palpation: + abdominal mass (palpable fixed hard mass in epigastrium, fullness/palpable mass in the RLQ); abdomen nontender, no guarding, abdomen not rigid and + abdomen not soft Skin: no rashes, warm and dry Psychiatric: Orientation: alert and oriented x 3 Results & Data ([facility]) Vital Signs (Past 12 Hours) Vital Signs Temp Pulse Resp BP Pulse Ox O2 Del Method 03/30/22 07:39 36.6 C 68 16 123/72 96 Room Air Laboratory Results 03/30/22 03/30/22 03/30/22 Range/Units 10:49 10:49 05:22 WBC 13.87 H (4.8-10.8) K/ul RBC 2.95 L (3.93-5.22) M/uL Hgb 7.6 L (12.0-16.0) g/dl POC Hgb (12.0-16.0) g/dl Hct 25.0 L (34.1-44.9) % POC Hct (37-47) % MCV 84.7 (80.0-100.0) fL MCH 25.8 (25.0-34.0) pg MCHC 30.4 L (32.0-36.0) g/dL RDW Std Deviation 70.2 H (36.4-46.3) fL RDW Coeff of Josef 23.1 H (11.5-14.5) % Plt Count 521 H (130-400) K/uL MPV 8.9 L (9.4-12.3) fL Immature Gran % (Auto) 0.6 % Neut % (Auto) 74.3 % Lymph % (Auto) 16.6 % Pepin % (Auto) 7.1 % Eos % (Auto) 1.2 % Baso % (Auto) 0.2 % Neut # (Auto) 10.30 H (1.4-6.5) K/uL Lymph # (Auto) 2.30 (1.2-3.4) K/uL Pepin # (Auto) 0.99 H (0.24-0.82) K/uL Eos # (Auto) 0.17 (0-0.50) K/uL Baso # (Auto) 0.03 (0-0.2) K/uL Immature Gran # (Auto) 0.08 H (0.00-0.02) K/uL Polychromasia Anisocytosis Present Target Cells 1+ POC Sodium (135-144) mmol/L Sodium (136-145) mmol/L POC Potassium (3.3-5.0) mmol/L Potassium (3.5-5.1) mmol/L POC Chloride (101-112) mmol/L Chloride (98-107) mmol/L Carbon Dioxide (21-32) mmol/L POC Total CO2 (24-31) mmol/L Anion Gap (3-11) POC Anion Gap (16-25) mmol/L POC BUN (7-18) mg/dl BUN (6-23) mg/dl Creatinine (0.6-1.2) mg/dl POC Creatinine (0.6-1.3) mg/dl Est Cr Clr Drug Dosing ml/min Est GFR ( Amer) ml/min Est GFR (Non-Af Amer) ml/min BUN/Creatinine Ratio (10-20) Glucose (70-99(Fasting)) mg/dl POC Glucose (other) (70-99) mg/dl Calcium (8.5-10.1) mg/dl POC Ioniz Calcium David (1.12-1.32) mmol/l Magnesium (1.7-2.4) mg/dl Iron (35-150) mcg/dl TIBC (250-450) mcg/dl Unsaturated IBC (155-355) mcg/dl Transferrin % Sat (15-50) % Total Bilirubin (0.2-1.0) mg/dl Direct Bilirubin (0-0.2) mg/dl AST (13-39) U/L ALT (7-52) U/L Alkaline Phosphatase (34-104) U/L Troponin I High Sens (0-14) pg/ml B-Natriuretic Peptide (0-100) pg/ml Total Protein (6.0-8.3) gm/dl Albumin (3.4-5.0) gm/dl Globulin (2.5-4.0) gm/dl Albumin/Globulin Ratio (0.9-2) Lipase (11-82) U/L Tumor Marker AFP Pending Carcinoembryonic Ag 315.9 H (0-2.5) ng/ml CA 125 Antigen Pending Vitamin B12 (180-914) pg/ml Folate (>5.38) ng/ml Urine Color Urine Appearance (Clear) Urine pH (4.5-7.5) Ur Specific [place] (1.000-1.030) Urine Protein (Negative) Urine Glucose (UA) (Negative) Urine Ketones (Negative) Urine Blood (Negative) Urine Nitrite (Negative) Urine Bilirubin (Negative) Urine Urobilinogen (Negative) Ur Leukocyte Esterase (Negative) Urine WBC (Auto) (0-5) /hpf Urine RBC (Auto) (0-4) /hpf U Hyaline Cast (Auto) (0-5) /lpf U Epithel Cells (Auto) (0-5) /lpf Urine Bacteria (Auto) (Negative) Amorphous Sediment (None Prsent) Urine Yeast SARS-CoV-2, RNA, NAAT (NEGATIVE) 03/30/22 03/30/22 03/29/22 Range/Units 05:22 05:22 Unknown WBC (4.8-10.8) K/ul RBC (3.93-5.22) M/uL Hgb (12.0-16.0) g/dl POC Hgb (12.0-16.0) g/dl Hct (34.1-44.9) % POC Hct (37-47) % MCV (80.0-100.0) fL MCH (25.0-34.0) pg MCHC (32.0-36.0) g/dL RDW Std Deviation (36.4-46.3) fL RDW Coeff of Josef (11.5-14.5) % Plt Count (130-400) K/uL MPV (9.4-12.3) fL Immature Gran % (Auto) % Neut % (Auto) % Lymph % (Auto) % Pepin % (Auto) % Eos % (Auto) % Baso % (Auto) % Neut # (Auto) (1.4-6.5) K/uL Lymph # (Auto) (1.2-3.4) K/uL Pepin # (Auto) (0.24-0.82) K/uL Eos # (Auto) (0-0.50) K/uL Baso # (Auto) (0-0.2) K/uL Immature Gran # (Auto) (0.00-0.02) K/uL Polychromasia Anisocytosis Target Cells POC Sodium (135-144) mmol/L Sodium 128 L (136-145) mmol/L POC Potassium (3.3-5.0) mmol/L Potassium 3.5 (3.5-5.1) mmol/L POC Chloride (101-112) mmol/L Chloride 97 L (98-107) mmol/L Carbon Dioxide 22 (21-32) mmol/L POC Total CO2 (24-31) mmol/L Anion Gap 9 (3-11) POC Anion Gap (16-25) mmol/L POC BUN (7-18) mg/dl BUN 27 H (6-23) mg/dl Creatinine 1.25 H (0.6-1.2) mg/dl POC Creatinine (0.6-1.3) mg/dl Est Cr Clr Drug Dosing 35.7 ml/min Est GFR ( Amer) 55.3 ml/min Est GFR (Non-Af Amer) 47.7 ml/min BUN/Creatinine Ratio 21.6 H (10-20) Glucose 103 H (70-99(Fasting)) mg/dl POC Glucose (other) (70-99) mg/dl Calcium 8.2 L (8.5-10.1) mg/dl POC Ioniz Calcium David (1.12-1.32) mmol/l Magnesium 2.2 (1.7-2.4) mg/dl Iron 15 L (35-150) mcg/dl TIBC 178 L (250-450) mcg/dl Unsaturated IBC 163 (155-355) mcg/dl Transferrin % Sat 8 L (15-50) % Total Bilirubin 4.6 H (0.2-1.0) mg/dl Direct Bilirubin 2.6 H (0-0.2) mg/dl AST 109 H (13-39) U/L ALT 75 H (7-52) U/L Alkaline Phosphatase 925 H (34-104) U/L Troponin I High Sens 22.6 H (0-14) pg/ml B-Natriuretic Peptide (0-100) pg/ml Total Protein 6.0 (6.0-8.3) gm/dl Albumin 2.3 L (3.4-5.0) gm/dl Globulin (2.5-4.0) gm/dl Albumin/Globulin Ratio (0.9-2) Lipase (11-82) U/L Tumor Marker AFP Carcinoembryonic Ag (0-2.5) ng/ml CA 125 Antigen Vitamin B12 > 1500 H (180-914) pg/ml Folate 11.17 (>5.38) ng/ml Urine Color Urine Appearance (Clear) Urine pH (4.5-7.5) Ur Specific [place] (1.000-1.030) Urine Protein (Negative) Urine Glucose (UA) (Negative) Urine Ketones (Negative) Urine Blood (Negative) Urine Nitrite (Negative) Urine Bilirubin (Negative) Urine Urobilinogen (Negative) Ur Leukocyte Esterase (Negative) Urine WBC (Auto) (0-5) /hpf Urine RBC (Auto) (0-4) /hpf U Hyaline Cast (Auto) (0-5) /lpf U Epithel Cells (Auto) (0-5) /lpf Urine Bacteria (Auto) (Negative) Amorphous Sediment (None Prsent) Urine Yeast SARS-CoV-2, RNA, NAAT NEGATIVE (NEGATIVE) 03/29/22 03/29/22 03/29/22 Range/Units 21:00 16:47 16:43 WBC (4.8-10.8) K/ul RBC (3.93-5.22) M/uL Hgb (12.0-16.0) g/dl POC Hgb 10.9 L (12.0-16.0) g/dl Hct (34.1-44.9) % POC Hct 32 L (37-47) % MCV (80.0-100.0) fL MCH (25.0-34.0) pg MCHC (32.0-36.0) g/dL RDW Std Deviation (36.4-46.3) fL RDW Coeff of Josef (11.5-14.5) % Plt Count (130-400) K/uL MPV (9.4-12.3) fL Immature Gran % (Auto) % Neut % (Auto) % Lymph % (Auto) % Pepin % (Auto) % Eos % (Auto) % Baso % (Auto) % Neut # (Auto) (1.4-6.5) K/uL Lymph # (Auto) (1.2-3.4) K/uL Pepin # (Auto) (0.24-0.82) K/uL Eos # (Auto) (0-0.50) K/uL Baso # (Auto) (0-0.2) K/uL Immature Gran # (Auto) (0.00-0.02) K/uL Polychromasia Anisocytosis Target Cells POC Sodium 132 L (135-144) mmol/L Sodium (136-145) mmol/L POC Potassium 3.7 (3.3-5.0) mmol/L Potassium (3.5-5.1) mmol/L POC Chloride 100 L (101-112) mmol/L Chloride (98-107) mmol/L Carbon Dioxide (21-32) mmol/L POC Total CO2 23 L (24-31) mmol/L Anion Gap (3-11) POC Anion Gap 14.0 L (16-25) mmol/L POC BUN 35 H (7-18) mg/dl BUN (6-23) mg/dl Creatinine (0.6-1.2) mg/dl POC Creatinine 1.4 H (0.6-1.3) mg/dl Est Cr Clr Drug Dosing ml/min Est GFR ( Amer) ml/min Est GFR (Non-Af Amer) ml/min BUN/Creatinine Ratio (10-20) Glucose (70-99(Fasting)) mg/dl POC Glucose (other) 125 H (70-99) mg/dl Calcium (8.5-10.1) mg/dl POC Ioniz Calcium David 1.15 (1.12-1.32) mmol/l Magnesium (1.7-2.4) mg/dl Iron (35-150) mcg/dl TIBC (250-450) mcg/dl Unsaturated IBC (155-355) mcg/dl Transferrin % Sat (15-50) % Total Bilirubin (0.2-1.0) mg/dl Direct Bilirubin (0-0.2) mg/dl AST (13-39) U/L ALT (7-52) U/L Alkaline Phosphatase (34-104) U/L Troponin I High Sens (0-14) pg/ml B-Natriuretic Peptide 64 (0-100) pg/ml Total Protein (6.0-8.3) gm/dl Albumin (3.4-5.0) gm/dl Globulin (2.5-4.0) gm/dl Albumin/Globulin Ratio (0.9-2) Lipase (11-82) U/L Tumor Marker AFP Carcinoembryonic Ag (0-2.5) ng/ml CA 125 Antigen Vitamin B12 (180-914) pg/ml Folate (>5.38) ng/ml Urine Color Dark Yellow Urine Appearance Cloudy A (Clear) Urine pH 5.5 (4.5-7.5) Ur Specific [place] 1.042 H (1.000-1.030) Urine Protein 1+ H (Negative) Urine Glucose (UA) Negative (Negative) Urine Ketones Negative (Negative) Urine Blood Negative (Negative) Urine Nitrite Positive A (Negative) Urine Bilirubin 2+ H (Negative) Urine Urobilinogen Negative (Negative) Ur Leukocyte Esterase Trace H (Negative) Urine WBC (Auto) 1-5 (0-5) /hpf Urine RBC (Auto) 0-4 (0-4) /hpf U Hyaline Cast (Auto) 1-5 (0-5) /lpf U Epithel Cells (Auto) 20-30 H (0-5) /lpf Urine Bacteria (Auto) Negative (Negative) Amorphous Sediment Present A (None Prsent) Urine Yeast Not Reportable SARS-CoV-2, RNA, NAAT (NEGATIVE) 03/29/22 03/29/22 Range/Units 16:43 16:43 WBC 20.95 H (4.8-10.8) K/ul RBC 3.50 L (3.93-5.22) M/uL Hgb 9.1 L (12.0-16.0) g/dl POC Hgb (12.0-16.0) g/dl Hct 28.5 L (34.1-44.9) % POC Hct (37-47) % MCV 81.4 (80.0-100.0) fL MCH 26.0 (25.0-34.0) pg MCHC 31.9 L (32.0-36.0) g/dL RDW Std Deviation 68.8 H (36.4-46.3) fL RDW Coeff of Josef 23.5 H (11.5-14.5) % Plt Count 800 H (130-400) K/uL MPV 8.9 L (9.4-12.3) fL Immature Gran % (Auto) 0.8 % Neut % (Auto) 81.1 % Lymph % (Auto) 11.1 % Pepin % (Auto) 6.8 % Eos % (Auto) 0.1 % Baso % (Auto) 0.1 % Neut # (Auto) 16.99 H (1.4-6.5) K/uL Lymph # (Auto) 2.32 (1.2-3.4) K/uL Pepin # (Auto) 1.42 H (0.24-0.82) K/uL Eos # (Auto) 0.03 (0-0.50) K/uL Baso # (Auto) 0.03 (0-0.2) K/uL Immature Gran # (Auto) 0.16 H (0.00-0.02) K/uL Polychromasia 1+ Anisocytosis Present Target Cells 1+ POC Sodium (135-144) mmol/L Sodium 128 L (136-145) mmol/L POC Potassium (3.3-5.0) mmol/L Potassium 3.6 (3.5-5.1) mmol/L POC Chloride (101-112) mmol/L Chloride 95 L (98-107) mmol/L Carbon Dioxide 21 (21-32) mmol/L POC Total CO2 (24-31) mmol/L Anion Gap 12 H (3-11) POC Anion Gap (16-25) mmol/L POC BUN (7-18) mg/dl BUN 34 H (6-23) mg/dl Creatinine 1.34 H (0.6-1.2) mg/dl POC Creatinine (0.6-1.3) mg/dl Est Cr Clr Drug Dosing 36.0 ml/min Est GFR ( Amer) 50.8 ml/min Est GFR (Non-Af Amer) 43.9 ml/min BUN/Creatinine Ratio 25.4 H (10-20) Glucose 113 H (70-99(Fasting)) mg/dl POC Glucose (other) (70-99) mg/dl Calcium 9.1 (8.5-10.1) mg/dl POC Ioniz Calcium David (1.12-1.32) mmol/l Magnesium (1.7-2.4) mg/dl Iron (35-150) mcg/dl TIBC (250-450) mcg/dl Unsaturated IBC (155-355) mcg/dl Transferrin % Sat (15-50) % Total Bilirubin 5.5 H (0.2-1.0) mg/dl Direct Bilirubin (0-0.2) mg/dl AST 153 H (13-39) U/L ALT 96 H (7-52) U/L Alkaline Phosphatase 1191 H (34-104) U/L Troponin I High Sens 28.4 H (0-14) pg/ml B-Natriuretic Peptide (0-100) pg/ml Total Protein 7.2 (6.0-8.3) gm/dl Albumin 2.7 L (3.4-5.0) gm/dl Globulin 4.5 H (2.5-4.0) gm/dl Albumin/Globulin Ratio 0.6 L (0.9-2) Lipase 5 L (11-82) U/L Tumor Marker AFP Carcinoembryonic Ag (0-2.5) ng/ml CA 125 Antigen Vitamin B12 (180-914) pg/ml Folate (>5.38) ng/ml Urine Color Urine Appearance (Clear) Urine pH (4.5-7.5) Ur Specific [place] (1.000-1.030) Urine Protein (Negative) Urine Glucose (UA) (Negative) Urine Ketones (Negative) Urine Blood (Negative) Urine Nitrite (Negative) Urine Bilirubin (Negative) Urine Urobilinogen (Negative) Ur Leukocyte Esterase (Negative) Urine WBC (Auto) (0-5) /hpf Urine RBC (Auto) (0-4) /hpf U Hyaline Cast (Auto) (0-5) /lpf U Epithel Cells (Auto) (0-5) /lpf Urine Bacteria (Auto) (Negative) Amorphous Sediment (None Prsent) Urine Yeast SARS-CoV-2, RNA, NAAT (NEGATIVE) Diagnostic Findings CT SCAN OF THE ABDOMEN AND PELVIS WITH IV CONTRAST CLINICAL HISTORY: Epigastric abdominal pain. COMPARISON STUDY: No priors. TECHNIQUE: Following the IV administration of 83 cc of Optiray 350, CT scan of the abdomen and pelvis is performed from the lung bases to the proximal femora. Images are reviewed in the axial, sagittal, and coronal planes. IV contrast was administered without complication. A dose lowering technique was utilized adhering to the principles of ALARA. CT DOSE: 291.18 mGy.cm FINDINGS: Lung bases: The heart is normal in size and without pericardial effusion. There are numerous (greater than 15) pulmonary nodules CT of both lung bases. These likely represent metastatic disease. The largest nodule is seen in the right lower lobe in image #16 measures 1.4 cm. A 1.0 cm left lower lobe nodule is seen image #36. There is no airspace consolidation typical for pneumonia or pleural effusion. Liver: The contrast-enhanced liver is enlarged and heterogeneous, measuring 25.2 cm in length. The liver is diffusely infiltrated by confluent multifocal metastatic disease. A patient representative right lobe lesion on image #80 measures 7.5 cm. There is no intrahepatic biliary ductal dilatation. There is narrowing of the right and left lobe portal branches secondary to large hepatic mass lesions. The vessels remain patent with no intraluminal thrombus. Gallbladder: Gallbladder wall thickening is nonspecific and likely related to adjacent hepatocellular disease. There is no CT evidence of acute cholecystitis. Spleen: Normal in size and attenuation. Pancreas: Unremarkable. Adrenal glands: An indeterminate left adrenal nodule measures up to 1.4 cm. Kidneys: The contrast enhanced kidneys are normal in size and without hydronephrosis. The kidneys enhance heterogeneously. Abdominal vasculature: The abdominal aorta is normal in course and caliber noting moderate atherosclerotic calcification. Bowel: There is a mass lesion of the proximal ascending colon seen on axial image #280. This measures at least 5.5 cm maximum dimension and causes colocolic intussusception. There is no upstream obstruction. The small bowel loops are normal in caliber. The appendix is normal as visualized seen on image #319 Peritoneum: There is a small volume of abdominopelvic ascites. No intraperitoneal free air is seen. There is a fat-containing umbilical hernia. Lymphadenopathy: Mildly enlarged upper abdominal lymph nodes likely represent metastatic disease. A gastrohepatic node on image #196 measures 1.5 cm in short axis. Pelvic viscera: The bladder, uterus, and adnexa are normal as visualized. Skeletal structures: No lytic or blastic lesions are clearly seen. There are bilateral pars defects at L5 with moderate disc space narrowing and minimal anterolisthesis of L5-S1. IMPRESSION: 1. There is an approximately 5 cm mass lesion of the ascending colon. A colonic neoplasm is the diagnosis of exclusion. 2. The liver is enlarged and diffusely infiltrated by hepatic metastatic disease. 3. Multifocal pulmonary metastatic disease is seen at the lung bases. 4. Metastatic lymphadenopathy is seen in the upper abdomen. 5. The colonic mass causes colocolonic intussusception. No obstruction is seen. 6. Small volume of abdominopelvic ascites. 7. The kidneys enhance heterogeneously. Correlate with clinical findings and urinalysis. 8. Additional findings as above. ULTRASOUND RIGHT UPPER QUADRANT ABDOMEN CLINICAL HISTORY: Elevated hepatic transaminases. COMPARISON STUDY: Abdominal CT dated 03/29/2022 TECHNIQUE: Real-time, grayscale, and color flow sonography of the right upper quadrant of the abdomen was performed. Images are reviewed in the transverse and longitudinal planes. FINDINGS: Liver: The liver is enlarged, heterogeneous, and diffusely infiltrated by metastatic disease. There is no intrahepatic biliary ductal dilatation. The main portal vein is patent. Gallbladder: Bladder wall thickening is nonspecific and likely related to adjacent hepatocellular disease. No shadowing gallstones are identified. There is no pericholecystic fluid. A sonographic Rodriguez's sign is reportedly absent. The common bile duct measures up to 0.4 cm in diameter. Pancreas: Visualized portions of the pancreatic head and body are normal in appearance. Right kidney: Survey images of the right kidney demonstrate normal size and echotexture. There is no hydronephrosis. Ascites: None. IMPRESSION: 1. The liver is enlarged and diffusely infiltrated by metastatic disease. 2. No gallstones are identified.
--- NOTE | 2022-03-30 12:08 | Gastrointestinal Consultation ---
Date of Consultation March 30, 2022 Assessment & Plan (1) Elevated LFTs: (2) Colonic mass: (3) Liver masses: Patient is a 57 years old female who presented with diffuse abdominal pain, nausea and vomiting symptoms, unexpected weight loss, found to have elevated WBC, iron deficiency anemia, hyponatremia, elevated LFTs and abd imaging studies showing a 5 cm ascending colon mass, causing colocolonic intussusception without obstruction, liver, upper abdominal lymph nodes, and pulmonary metastatic processes. - Heme/Onc and Surgery consults - Obtain tumor markers: AFP, CA 125, CEA - CL diet up till Saturday, then NPO after midnight for colonoscopy on Monday 04/02. In light of colon mass and intussusception, will start giving her low dose Miralax prep today up till Saturday Supervising Physician Co-Signing Physician Notes Late entry: Patient was seen and examined on 03/30 with CHRISTOS Gil whose note reflects our findings and plan. History of Present Illness Reason for Consultation: Colon mass, elevated LFTs with liver mets. Requesting Physician: Dr. Nghia Vo Attending Physician: Dr. Fani Mcdonough History of Present Illness Patient is a 57 years old female who presented with nausea, vomiting, abdominal pain and unexpected weight loss in the last 2 months. She apparently lives in [place], currently visiting her parents in [place]. States that she has been having worsening nausea, vomiting and abdominal pain when she eats. Lost about 12 pounds in the last 2 months. Denies any sick contact, travels. On evaluation she was found to have leukocytosis with WBC of 20, anemia with H&H of 7.6/25, also signs of hyponatremia, elevated LFTs with total bilirubin of 4.6, AST 109, ALT 75, alkaline phosphatase 925. Abdominal imaging studies with liver ultrasound and CT of the abdomen and pelvis showed a 5 cm mass lesion in ascending colon area causing colocolonic intussusception but no obstruction is noted, liver is enlarged with diffusely infiltrated hepatic metastatic disease, there also multifocal pulmonary metastatic disease in the lung bases, metastatic lymphadenopathy in the upper abdomen. Patient has never had a colonoscopy in the past. She denies any family historie s of colorectal cancer. Allergies Allergy/AdvReac Type Severity Reaction Status Date / Time No Known Allergies Allergy Verified 04/02/22 08:22 Home Medications Medication Instructions Recorded Confirmed Type aripiprazole 5 mg tablet 5 mg PO DAILY 03/29/22 03/29/22 History escitalopram oxalate 20 mg tablet 20 mg PO DAILY 03/29/22 03/29/22 History lamotrigine 100 mg tablet 100 mg PO DAILY 03/29/22 03/29/22 History Patient History Medical History (Updated 04/08/22 @ 13:22 by Alexei Beard MD) Adenocarcinoma, colon Stage IV met disease FYI from psych: If at some point she develops significant enough nausea that she is not able to continue with consistent use of lamictal then this would need to be re-titrated if more than 3 days of missed doses as this increases the risk of Cheung-Stu syndrome Anemia Cachexia Depression followed by psych in [place] and will est care here in [place]. Per psych eval 04/04/22: If at some point she develops significant enough nausea that she is not able to continue with consistent use of lamictal then this would need to be re-titrated if more than 3 days of missed doses as this increases the risk of Cheung-Stu syndrome Encounter for pre-operative examination Palliative care encounter Weakness generalized Social History Smoking Status: Former smoker Second Hand Exposure: No; Hx Alcohol Use: Yes Alcohol type: wine Hx Substance Use: No Preferred Language: Lithuanian Communication Ability: Effective Order Runner Required: No Beliefs That Will Affect Care: Oriental Orthodox Current Living Situation: Alone Feels Safe at Home: Yes and No Is there a partner from a previous relationship who is making you feel unsafe now?: No Assistive Devices: None Review of Systems Review of Systems: All systems reviewed & are unremarkable except as noted in HPI & below Physical Exam Constitutional: WD/WN, vitals as above well groomed, cooperative and comfortable Eyes: PERRL, conjunctivae normal, anicteric sclerae ENMT: external ear and nose normal, oropharynx normal Respiratory: normal respiratory effort, lungs clear to auscultation Cardiovascular: RRR, no murmur, no edema Gastrointestinal (Abdomen): Abd mass palpated on epigastric, RUQ, RLQ areas. Non tender, BS hypoactive Skin: no rashes, warm and dry + jaundice Neurologic: Motor/Sensory: no asterixis Lymphatic: no lymphedema Results & Data ([facility]) Vital Signs (Past 12 Hours) Vital Signs Temp Pulse Resp BP Pulse Ox O2 Del Method 03/30/22 07:39 36.6 C 68 16 123/72 96 Room Air
--- NOTE | 2022-03-30 13:33 | Oncology Consultation ---
Date of Consultation March 30, 2022 Assessment & Plan (1) Liver masses: (2) Colonic mass: (3) Elevated LFTs: Plan Very pleasant 57-year-old female who presented with abdominal distention, nausea and vomiting. Imaging studies revealed ascending colon lesion, upper abdomen lymphadenopathy, metastatic lung and liver lesions. She has transaminitis with no evidence of intrahepatic biliary ductal dilatation on US imaging. CEA was elevated at 315 -Recommend obtaining CT chest angiogram to rule out PE given complaints of chest pain and shortness of breath. This would also be useful for full staging purposes. -Consider giving Venofer 300 mg IV x2 doses while inpatient given iron deficiency anemia likely from GI bleeding secondary to colon mass. This will be preferred over oral supplementation since oral iron will likely worsen constipation. -Based on clinical symptoms, laboratory data and imaging studies she appears to have metastatic colon cancer. Will however need confirmation by obtaining biopsy. If pathology confirms colon cancer, will obtain Biomarker analysis for microsatellite instability/mismatch repair testing, K-pearl/NRAS and BRAF mutation analysis which may impact treatment decisions .She is scheduled for colonoscopy with biopsy on 04/02/2022 we will await those results. -Patient's dad is currently being treated by my colleague, Dr. Meyer at [facility] and she would like to follow up with him. Will arrange for outpatient follow-up with Dr. Meyer to discuss treatment options. Thank you for this consult. Oncology will follow peripherally while she is in the hospital. Please feel free to call if you have any further questions. History of Present Illness Reason for Consultation: Suspected metastatic colon cancer Attending Physician: Nghia Vo MD History of Present Illness Pleasant 57-year-old female with medical history of depression who presented to the ER [facility] with complaints of abdominal pain, nausea and vomiting. Labs reviewed anemia with hemoglobin of 9.1 abnormal LFTs with bilirubin of 5.5, AST of 153, ALT of 96 and alkaline phosphatase of 1191. CT abdomen and pelvis obtained on 03/29/2022 revealed 5 cm mass lesion in the ascending colon suspicious for colon cancer, enlarged liver with diffuse hepatic metastatic disease, multifocal pulmonary metastatic disease and metastatic lymphadenopathy in the upper abdomen. Liver ultrasound on 03/29/2022 revealed enlarged liver diffusely infiltrated by metastatic disease with no intrahepatic biliary ductal dilatation. CEA was elevated at 315. She states that she has been feeling unwell over the past 2 months. Complains of shortness of breath especially with exertion, occasional chest pain, abdominal pain, nausea, vomiting and about 12 pounds weight loss over the past 2 months. She denies hematochezia or hematemesis. Has never had a colonoscopy. Has a family history of breast cancer in her sister at a young age for which patient and her sisters underwent genetic testing which she reports was negative. She also states that her father was recently diagnosed with melanoma for which he is s/p resection and is followed by Dr. Meyer at [facility]. Allergies Allergy/AdvReac Type Severity Reaction Status Date / Time No Known Allergies Allergy Verified 03/29/22 17:24 Home Medications Medication Instructions Recorded Confirmed Type aripiprazole 5 mg tablet 5 mg PO DAILY 03/29/22 03/29/22 History escitalopram oxalate 20 mg tablet 20 mg PO DAILY 03/29/22 03/29/22 History lamotrigine 100 mg tablet 100 mg PO DAILY 03/29/22 03/29/22 History Patient History Social History Smoking Status: Former smoker Second Hand Exposure: No; Do You Dip or Chew Tobacco: No; Tobacco Cessation Education Requested by Patient: No Hx Alcohol Use: Yes Alcohol type: wine Hx Substance Use: No Preferred Language: Nepali Communication Ability: Effective Dinkey Mechanic Required: No Beliefs That Will Affect Care: None Current Living Situation: Alone Other Information That Helps Us Care for You: No Feels Safe at Home: Yes and No Is there a partner from a previous relationship who is making you feel unsafe now?: No Any Concerns about Your Family Situation: No Would You Like to Speak to Someone About Your Situation: No Safety Concerns: Feels Safe At This Time Assistive Devices: None Review of Systems Review of Systems: All systems reviewed & are unremarkable except as noted in Subjective Physical Exam Constitutional: WD/WN, vitals as above Eyes: Scleral icterus Respiratory: normal respiratory effort, lungs clear to auscultation Cardiovascular: RRR, no murmur, no edema Gastrointestinal (Abdomen): Abdomen distended with hyperactive bowel sounds Skin: no rashes, warm and dry Lymphatic: no cervical or axillary lymphadenopathy Results & Data ([facility]) Vital Signs (Past 12 Hours) Vital Signs Temp Pulse Resp BP Pulse Ox O2 Del Method 03/30/22 07:39 36.6 C 68 16 123/72 96 Room Air
[2022-03-30] MEDS ORDERED: IRON SUCROSE 300 MG in SODIUM CHLORIDE 0.9% 250 ML IV ONE (14:00)
[2022-03-30] MEDS ORDERED: OPTIRAY 320 500ml IV ONE (14:43)
--- NOTE | 2022-03-30 15:09 | CT Scan Report ---
CT angio chest PE protocol CLINICAL HISTORY: r/o PE, pt w/ mets TECHNIQUE: Multidetector row helical CT of the chest was performed with angiographic protocol. Beckett l and sagittal reformations were obtained. Coronal and sagittal MIPS were obtained from the axial arminda a set and were submitted for review. Automated dose lowering techniques and/or adjustment according to patient size were utilized for this exam. CT DOSE: 207.98 mGy.cm Comparison: None available at the time of this dictation. FINDINGS: Lungs and pleura: Minimal atelectasis is noted. Innumerable pulmonary nodules are seen favoring the l ower lobes. Prominent nodules include the followin mm pleural-based nodule at the right lung base (series 4 image 49) 4 mm nodule in the left lower lobe (image 51) 4 mm nodule in the right lower lobe (image 58) 13 mm nodule in the right lower lobe (image 78) 12 mm nodule in the left lower lobe (image 83) 3 mm nodule in the left lower lobe (image 92) 3 mm nodule in the left lower lobe (image 119) 4 mm nodule in the left lower lobe (image 129) 3 mm nodule in the right lower lobe (image 131) Heart and pericardium: Heart size is normal. No pericardial effusion. Vessels: No evidence of pulmonary embolism. Mediastinum and saad: Unremarkable. Chest wall and lower neck: Unremarkable. Abdomen: Partial visualization of fine hepatic masses. Bones: Unremarkable. IMPRESSION: 1. No evidence of pulmonary embolism. 2. Numerous pulmonary nodules as above compatible with metastatic disease. 3. Partial visualization of hepatic metastases. ACT 112: Negative or not required by law. Electronically signed by: Clint Vargas M.D. 03/30/2022 3:07 PM
[2022-03-30] MEDS ORDERED: POLYETHYLENE (MIRALAX) 17 GM PACK PO ONE (17:00)
[2022-03-31] MEDS: PIPERACILLIN/TAZOBACTAM 3.375 GM in DEXTROSE 5% 100 ML IV SCH ×3 (01:45→17:56)
[2022-03-31 06:45] LABS: Hematocrit (blood only) 25.7 % (34.1-44.9); Hemoglobin 7.8 g/dl (12.0-16.0); Mean Corpuscular Hemoglobin 25.7 pg (25.0-34.0); Mean Corpuscular Hgb Conc 30.4 g/dL (32.0-36.0); Mean Corpuscular Volume 84.8 fL (80.0-100.0); Platelet Count 504 K/uL (130-400); RDW Standard Deviation 70.6 fL (36.4-46.3); Red Blood Count 3.03 M/uL (3.93-5.22); White Blood Count 13.83 K/ul (4.8-10.8)
[2022-03-31 07:19] LABS: Albumin Globulin Ratio 0.7 (0.9-2); Albumin Level 2.3 gm/dl (3.4-5.0); BUN Creatinine Ratio 14.4 (10-20); Bilirubin,Total 5.6 mg/dl (0.2-1.0); Calcium 8.3 mg/dl (8.5-10.1); Creatinine Clr Calc Pharmacy 42.9 ml/min; Est GFR (African American) 69.1 ml/min; Est GFR (Non-African American) 59.6 ml/min; Globulin 3.5 gm/dl (2.5-4.0); Magnesium 1.9 mg/dl (1.7-2.4); Phosphorus 2.9 mg/dl (2.5-4.9); Potassium 3.5 mmol/L (3.5-5.1); Total Protein 5.8 gm/dl (6.0-8.3)
[2022-03-31] MEDS: D5W AND 1/2NSS 1,000 ML IV SCH ×2 (07:45→18:09)
[2022-03-31] MEDS: MoRPHine SULFATE 4 MG/ML 1 ML CARP\\VIAL IV PRN ×2 (07:56→21:52)
[2022-03-31] MEDS ORDERED: POLYETHYLENE (MIRALAX) 17 GM PACK PO ONE (09:00)
[2022-03-31] MEDS: lamoTRIgine 100 MG TAB PO SCH (09:25)
[2022-03-31] MEDS: ESCITALOPRAM OXALATE 20 MG TAB PO SCH (09:26)
[2022-03-31] MEDS: ARIPiprazole 5 MG TAB PO SCH (09:26)
--- NOTE | 2022-03-31 11:55 | Surgery Progress Note ---
Date of Service March 31, 2022 Assessment & Plan (1) Liver masses: Plan: oncolgy (2) Colonic mass: Plan: colonoscopy on Saturday will follow Admission and Anticipated Discharge Date Admission Date: March 29, 2022 Subjective no complaints beginning prep Review of Systems Constitutional: no fever and no chills Respiratory: no cough and no dyspnea Cardiovascular: no chest pain Gastrointestinal: no abdominal pain, no nausea and no vomiting Genitourinary: no dysuria Musculoskeletal: no back pain, no neck pain and no joint pain Integumentary: no lesions Neurologic: no localized weakness and no generalized weakness Physical Exam Constitutional: WD/WN, vitals as above Eyes: PERRL, conjunctivae normal, anicteric sclerae ENMT: external ear and nose normal, oropharynx normal Neck: trachea midline Respiratory: no respiratory distress Cardiovascular: RRR, no murmur, no edema Gastrointestinal (Abdomen): Inspection/Auscultation: abdomen normal to inspection and + abdomen distended Percussion/Palpation: abdomen soft and + abdominal mass; abdomen nontender Musculoskeletal: Head/Neck/Chest: normocephalic and head atraumatic Results & Data ([facility]) Vital Signs (Past 12 Hours) Vital Signs Temp Pulse Resp BP Pulse Ox O2 Del Method 03/31/22 07:15 36.5 C 71 16 112/70 94 Room Air
[2022-03-31] MEDS ORDERED: POTASSIUM CHLORIDE PWD 20 MEQ PACK PO SCH (14:45)
--- NOTE | 2022-03-31 14:45 | Hospitalist Progress Note ---
Date of Service March 31, 2022 Assessment & Plan (1) Colonic mass: (2) Liver masses: (3) Elevated LFTs: Plan 57-year-old female who presents with 2 months of abdominal pain, ongoing nausea, vomiting, weight loss. She was found to have colon mass with metastases to liver and lungs. 1. Abdominal pain, nausea, vomiting, elevated LFTs. Colon mass. Liver metastases. CT abdomen and pelvis with IV contrast showing 5 cm ascending colon mass with diffuse hepatic metastatic disease and also pulmonary metastatic disease. Colonic neoplasm is diagnosis of exclusion, by CAT scan report. Admitting provider discussed with GI that her LFTs looks like obstructive pattern. GI recommended for liver ultrasound and also IV antibiotics and plan for colonoscopy. IV fluids, IV morphine p.r.n., IV antiemetics p.r.n. GI consulted - plan for colonoscopy on Saturday, recommend also surgery consult and oncology Tumor markers ordered Surgery - no plan for surg. intervention at this time Oncology - CTA chest, IV venofer x2, follow up as outpt. w/ Dr. Meyer (who sees pt's father as well) CTA chest obtained - no PE Venofer given yesteday, plan for another dose tmrw 2. Anemia, probably secondary to above ongoing illness. Will get Hemoccult, iron studies, vitamin B12, folate levels. FOBT negative Hem/Onc following - recommend IV venofer x2 3. Leukocytosis. On IV Zosyn. We will follow the cultures. Follow the repeat labs. 4. Hyponatremia. Sodium 128 on admission, possibly from nausea and vomiting. Received fluids. Current Na 131 5. Acute kidney injury: - Resolved Creatinine 1.34 on admission Now 1.0 . Creatinine was 0.7 in Epic labs in April 2018. Received fluids. Monitor BMP 6. Mild elevation of troponin, mostly demand ischemia, the patient is asymptomatic. EKG is okay. repeated troponins - trended down 7. Depression: Continue her home medications. DVT prophylaxis: SCDs for now. Plan for colonoscopy and biopsy on Saturday DISPOSITION: medical floor Admission and Anticipated Discharge Date Admission Date: March 29, 2022 Subjective Patient seen in follow-up of nausea vomiting, new finding of colon mass, with metastases to liver, lungs Currently laying in bed, in no acute distress Patient's girlfriends present at the bedside. No fevers, chills, chest pain, shortness of breath, no abdominal pain Discussed in detail further steps, plan for colonoscopy on Saturday Review of Systems Review of Systems: All systems reviewed & are unremarkable except as noted in Subjective Physical Exam Physical Exam: GENERAL: The patient is of moderate build, not in acute distress. HEENT: Pupils equal, round and reactive to light. EOMI. Oral mucosa moist. NECK: No JVD, no neck masses. CARDIOVASCULAR: S1 and S2 heard. Regular rate and rhythm. No murmur, no gallop. RESPIRATORY: Normal AP diameter. No accessory muscle use. No wheezing, no crackles. ABDOMEN: Soft, bowel sounds present.+ mass at RUQ/epigastric region and RLQ. No guarding, no rigidity, no distention. NEURO:Awake alert oriented, answering questions appropriately, no facial asymmetry, moves extremities EXTREMITIES: Pedal edema present, no erythema seen. Results & Data Results & Data ([facility]) Vital Signs (Past 12 Hours) Vital Signs Temp Pulse Resp BP Pulse Ox O2 Del Method 03/31/22 07:15 36.5 C 71 16 112/70 94 Room Air Laboratory Results 03/31/22 03/31/22 03/31/22 Range/Units 09:00 06:10 06:10 WBC 13.83 H (4.8-10.8) K/ul RBC 3.03 L (3.93-5.22) M/uL Hgb 7.8 L (12.0-16.0) g/dl Hct 25.7 L (34.1-44.9) % MCV 84.8 (80.0-100.0) fL MCH 25.7 (25.0-34.0) pg MCHC 30.4 L (32.0-36.0) g/dL RDW Std Deviation 70.6 H (36.4-46.3) fL RDW Coeff of Josef 23.0 H (11.5-14.5) % Plt Count 504 H (130-400) K/uL MPV 9.0 L (9.4-12.3) fL Sodium 131 L (136-145) mmol/L Potassium 3.5 (3.5-5.1) mmol/L Chloride 100 (98-107) mmol/L Carbon Dioxide 23 (21-32) mmol/L Anion Gap 8 (3-11) BUN 15 (6-23) mg/dl Creatinine 1.04 (0.6-1.2) mg/dl Est Cr Clr Drug Dosing 42.9 ml/min Est GFR ( Amer) 69.1 ml/min Est GFR (Non-Af Amer) 59.6 ml/min BUN/Creatinine Ratio 14.4 (10-20) Glucose 85 (70-99(Fasting)) mg/dl Calcium 8.3 L (8.5-10.1) mg/dl Phosphorus 2.9 (2.5-4.9) mg/dl Magnesium 1.9 (1.7-2.4) mg/dl Ferritin (8-388) ng/ml Total Bilirubin 5.6 H (0.2-1.0) mg/dl AST 104 H (13-39) U/L ALT 70 H (7-52) U/L Alkaline Phosphatase 819 H (34-104) U/L Total Protein 5.8 L (6.0-8.3) gm/dl Albumin 2.3 L (3.4-5.0) gm/dl Globulin 3.5 (2.5-4.0) gm/dl Albumin/Globulin Ratio 0.7 L (0.9-2) Stool Occult Bld Scrn Negative (Negative) 03/30/22 Range/Units 14:30 WBC (4.8-10.8) K/ul RBC (3.93-5.22) M/uL Hgb (12.0-16.0) g/dl Hct (34.1-44.9) % MCV (80.0-100.0) fL MCH (25.0-34.0) pg MCHC (32.0-36.0) g/dL RDW Std Deviation (36.4-46.3) fL RDW Coeff of Josef (11.5-14.5) % Plt Count (130-400) K/uL MPV (9.4-12.3) fL Sodium (136-145) mmol/L Potassium (3.5-5.1) mmol/L Chloride (98-107) mmol/L Carbon Dioxide (21-32) mmol/L Anion Gap (3-11) BUN (6-23) mg/dl Creatinine (0.6-1.2) mg/dl Est Cr Clr Drug Dosing ml/min Est GFR ( Amer) ml/min Est GFR (Non-Af Amer) ml/min BUN/Creatinine Ratio (10-20) Glucose (70-99(Fasting)) mg/dl Calcium (8.5-10.1) mg/dl Phosphorus (2.5-4.9) mg/dl Magnesium (1.7-2.4) mg/dl Ferritin 181.8 (8-388) ng/ml Total Bilirubin (0.2-1.0) mg/dl AST (13-39) U/L ALT (7-52) U/L Alkaline Phosphatase (34-104) U/L Total Protein (6.0-8.3) gm/dl Albumin (3.4-5.0) gm/dl Globulin (2.5-4.0) gm/dl Albumin/Globulin Ratio (0.9-2) Stool Occult Bld Scrn (Negative) Medications Administered Current Inpatient Medications Aripiprazole (Aripiprazole 5 Mg Tab) 5 mg PO DAILY [facility] Stop: 04/29/22 08:59 Last Admin: 03/31/22 09:26 Dose: 5 mg Bisacodyl (Bisacodyl 5 Mg Tabec) 20 mg PO ONE ONE Stop: 04/01/22 17:01 Escitalopram Oxalate (Escitalopram Oxalate 20 Mg Tab) 20 mg PO DAILY [facility] Stop: 04/29/22 08:59 Last Admin: 03/31/22 09:26 Dose: 20 mg Dextrose/Sodium Chloride (D5w And 1/2nss) 1,000 mls @ 100 mls/hr IV .Q10H [facility] Stop: 04/28/22 21:38 Last Admin: 03/31/22 07:45 Dose: 100 mls/hr Piperacillin Sod/Tazobactam (Sod 3.375 gm/ Dextrose) 115 mls @ 28.75 mls/hr IV Q8H [facility]; Protocol Stop: 04/09/22 01:59 Last Admin: 03/31/22 10:34 Dose: 28.8 mls/hr Lamotrigine (Lamotrigine 100 Mg Tab) 100 mg PO DAILY [facility] Stop: 04/29/22 08:59 Last Admin: 03/31/22 09:25 Dose: 100 mg Morphine Sulfate (Morphine Sulfate 4 Mg/Ml 1 Ml Carp\Vial) 3 mg IV Q4H PRN PRN Reason: Pain Stop: 04/12/22 21:38 Last Admin: 03/31/22 07:56 Dose: 3 mg Ondansetron HCl (Ondansetron Inj 2 Mg/Ml 2 Ml Vial) 4 mg IV Q6H PRN PRN Reason: Nausea Stop: 04/28/22 21:38 Polyethylene Glycol (Polyethylene (Miralax) 17 Gm Pack) 85 gm PO ONE ONE Stop: 04/01/22 09:01 Potassium Chloride (Potassium Chloride Pwd 20 Meq Pack) 20 meq PO TID [facility] Stop: 04/30/22 14:44
[2022-03-31] MEDS: POTASSIUM CHLORIDE CRTAB 20 MEQ TABCR PO SCH ×2 (15:56→21:46)
[2022-03-31] MEDS ORDERED: ALUMINUM/MAGNESIUM/SIMETH (MAALOX MAX) 30 ML UDC PO STA (22:04)
[2022-03-31] MEDS ORDERED: ALUMINUM/MAGNESIUM/SIMETH (MAALOX MAX) 30 ML UDC ONE (22:11)
[2022-04-01] MEDS: PIPERACILLIN/TAZOBACTAM 3.375 GM in DEXTROSE 5% 100 ML IV SCH ×3 (02:00→17:35)
[2022-04-01] MEDS: D5W AND 1/2NSS 1,000 ML IV SCH ×3 (03:11→22:11)
[2022-04-01 06:25] LABS: Hemoglobin 7.5 g/dl (12.0-16.0); Mean Corpuscular Volume 86.8 fL (80.0-100.0); Mean Platelet Volume 9.3 fL (9.4-12.3); Platelet Count 425 K/uL (130-400); RDW Standard Deviation 72.7 fL (36.4-46.3); Red Blood Count 2.88 M/uL (3.93-5.22); White Blood Count 13.54 K/ul (4.8-10.8)
[2022-04-01 06:49] LABS: Albumin Globulin Ratio 0.7 (0.9-2); Albumin Level 2.2 gm/dl (3.4-5.0); BUN Creatinine Ratio 11.5 (10-20); Bilirubin,Total 5.6 mg/dl (0.2-1.0); Creatinine Clr Calc Pharmacy 57.2 ml/min; Est GFR (African American) 97.8 ml/min; Est GFR (Non-African American) 84.4 ml/min; Globulin 3.3 gm/dl (2.5-4.0); Magnesium 1.8 mg/dl (1.7-2.4); Phosphorus 2.4 mg/dl (2.5-4.9); Potassium 3.6 mmol/L (3.5-5.1); Total Protein 5.5 gm/dl (6.0-8.3)
--- NOTE | 2022-04-01 08:09 | Hospitalist Progress Note ---
Date of Service April 01, 2022 Assessment & Plan (1) Colonic mass: (2) Liver masses: (3) Elevated LFTs: Plan 57-year-old female who presents with 2 months of abdominal pain, ongoing nausea, vomiting, weight loss. She was found to have colon mass with metastases to liver and lungs. 1. Abdominal pain, nausea, vomiting, elevated LFTs. Colon mass. Liver metastases. CT abdomen and pelvis with IV contrast showing 5 cm ascending colon mass with diffuse hepatic metastatic disease and also pulmonary metastatic disease. Colonic neoplasm is diagnosis of exclusion, by CAT scan report. Admitting provider discussed with GI that her LFTs looks like obstructive pattern. GI recommended for liver ultrasound and also IV antibiotics and plan for colonoscopy. IV fluids, IV morphine p.r.n., IV antiemetics p.r.n. GI consulted - plan for colonoscopy on Saturday, recommend also surgery consult and oncology Tumor markers ordered Surgery - no plan for surg. intervention at this time Oncology - CTA chest, IV venofer x2, follow up as outpt. w/ Dr. Meyer (who sees pt's father as well) CTA chest obtained - no PE First dose of Venofer given, plan for another dose today (04/01) 2. Anemia, probably secondary to above ongoing illness. Will get Hemoccult, iron studies, vitamin B12, folate levels. FOBT negative Hem/Onc following - recommend IV venofer x2 3. Leukocytosis. On IV Zosyn. We will follow the cultures. Follow the repeat labs. 4. Hyponatremia. Sodium 128 on admission, possibly from nausea and vomiting. Received fluids. Current Na 132 5. Acute kidney injury: - Resolved Creatinine 1.34 on admission Now 1.0 . Creatinine was 0.7 in Epic labs in April 2018. Received fluids. Monitor BMP 6. Mild elevation of troponin, mostly demand ischemia, the patient is asymptomatic. EKG is okay. repeated troponins - trended down 7. Depression: Continue her home medications. DVT prophylaxis: SCDs for now. Plan for colonoscopy and biopsy on Saturday DISPOSITION: medical floor Admission and Anticipated Discharge Date Admission Date: March 29, 2022 Subjective Patient seen in follow-up of nausea vomiting, new finding of colon mass, with metastases to liver, lungs Currently laying in bed, in no acute distress No fevers, chills, chest pain, shortness of breath, no abdominal pain Discussed in detail further steps, plan for colonoscopy on Saturday Review of Systems Review of Systems: All systems reviewed & are unremarkable except as noted in Subjective Physical Exam Physical Exam: GENERAL: The patient is of moderate build, not in acute distress. HEENT: Pupils equal, round and reactive to light. EOMI. Oral mucosa moist. NECK: No JVD, no neck masses. CARDIOVASCULAR: S1 and S2 heard. Regular rate and rhythm. No murmur, no gallop. RESPIRATORY: Normal AP diameter. No accessory muscle use. No wheezing, no crackles. ABDOMEN: Soft, bowel sounds present.+ mass at RUQ/epigastric region and RLQ. No guarding, no rigidity, no distention. NEURO:Awake alert oriented, answering questions appropriately, no facial asymmetry, moves extremities EXTREMITIES: Pedal edema present, no erythema seen. Results & Data Results & Data ([facility]) Vital Signs (Past 12 Hours) Vital Signs Temp Pulse Resp BP Pulse Ox O2 Del Method 04/01/22 07:02 36.6 C 73 16 111/70 96 Room Air 03/31/22 22:11 36.7 C 78 16 118/76 97 Room Air 03/31/22 22:00 Room Air Laboratory Results 04/01/22 04/01/22 03/31/22 Range/Units 05:37 05:37 09:00 WBC 13.54 H (4.8-10.8) K/ul RBC 2.88 L (3.93-5.22) M/uL Hgb 7.5 L (12.0-16.0) g/dl Hct 25.0 L (34.1-44.9) % MCV 86.8 (80.0-100.0) fL MCH 26.0 (25.0-34.0) pg MCHC 30.0 L (32.0-36.0) g/dL RDW Std Deviation 72.7 H (36.4-46.3) fL RDW Coeff of Josef 23.0 H (11.5-14.5) % Plt Count 425 H (130-400) K/uL MPV 9.3 L (9.4-12.3) fL Sodium 132 L (136-145) mmol/L Potassium 3.6 (3.5-5.1) mmol/L Chloride 103 (98-107) mmol/L Carbon Dioxide 22 (21-32) mmol/L Anion Gap 7 (3-11) BUN 9 (6-23) mg/dl Creatinine 0.78 (0.6-1.2) mg/dl Est Cr Clr Drug Dosing 57.2 ml/min Est GFR ( Amer) 97.8 ml/min Est GFR (Non-Af Amer) 84.4 ml/min BUN/Creatinine Ratio 11.5 (10-20) Glucose 101 H (70-99(Fasting)) mg/dl Calcium 8.0 L (8.5-10.1) mg/dl Phosphorus 2.4 L (2.5-4.9) mg/dl Magnesium 1.8 (1.7-2.4) mg/dl Total Bilirubin 5.6 H (0.2-1.0) mg/dl AST 135 H (13-39) U/L ALT 72 H (7-52) U/L Alkaline Phosphatase 824 H (34-104) U/L Total Protein 5.5 L (6.0-8.3) gm/dl Albumin 2.2 L (3.4-5.0) gm/dl Globulin 3.3 (2.5-4.0) gm/dl Albumin/Globulin Ratio 0.7 L (0.9-2) Stool Occult Bld Scrn Negative (Negative) Medications Administered Current Inpatient Medications Aripiprazole (Aripiprazole 5 Mg Tab) 7.5 mg PO DAILY LATESHA Stop: 05/01/22 08:59 Bisacodyl (Bisacodyl 5 Mg Tabec) 20 mg PO ONE ONE Stop: 04/01/22 17:01 Escitalopram Oxalate (Escitalopram Oxalate 20 Mg Tab) 20 mg PO DAILY LATESHA Stop: 04/29/22 08:59 Last Admin: 03/31/22 09:26 Dose: 20 mg Dextrose/Sodium Chloride (D5w And 1/2nss) 1,000 mls @ 100 mls/hr IV .Q10H LATESHA Stop: 04/28/22 21:38 Last Admin: 04/01/22 03:11 Dose: 100 mls/hr Piperacillin Sod/Tazobactam (Sod 3.375 gm/ Dextrose) 115 mls @ 28.75 mls/hr IV Q8H LATESHA; Protocol Stop: 04/09/22 01:59 Last Infusion: 04/01/22 06:01 Dose: Infused Iron Sucrose 300 mg/ Sodium (Chloride) 265 mls @ 176.667 mls/hr IV 0830 ONE Stop: 04/01/22 09:59 Lamotrigine (Lamotrigine 100 Mg Tab) 100 mg PO DAILY LATESHA Stop: 04/29/22 08:59 Last Admin: 03/31/22 09:25 Dose: 100 mg Morphine Sulfate (Morphine Sulfate 4 Mg/Ml 1 Ml Carp\Vial) 3 mg IV Q4H PRN PRN Reason: Pain Stop: 04/12/22 21:38 Last Admin: 03/31/22 21:52 Dose: 3 mg Ondansetron HCl (Ondansetron Inj 2 Mg/Ml 2 Ml Vial) 4 mg IV Q6H PRN PRN Reason: Nausea Stop: 04/28/22 21:38 Polyethylene Glycol (Polyethylene (Miralax) 17 Gm Pack) 85 gm PO ONE ONE Stop: 04/01/22 09:01 Potassium Chloride (Potassium Chloride Crtab 20 Meq Tabcr) 20 meq PO TID LATESHA Stop: 04/30/22 15:29 Last Admin: 03/31/22 21:46 Dose: 20 meq
[2022-04-01] MEDS ORDERED: IRON SUCROSE 300 MG in SODIUM CHLORIDE 0.9% 250 ML IV ONE (08:30)
[2022-04-01] MEDS: MoRPHine SULFATE 4 MG/ML 1 ML CARP\\VIAL IV PRN ×4 (08:41→22:12)
[2022-04-01] MEDS: POTASSIUM CHLORIDE CRTAB 20 MEQ TABCR PO SCH ×3 (08:51→21:54)
[2022-04-01] MEDS: lamoTRIgine 100 MG TAB PO SCH (08:51)
[2022-04-01] MEDS: ESCITALOPRAM OXALATE 20 MG TAB PO SCH (08:52)
[2022-04-01] MEDS ORDERED: POLYETHYLENE (MIRALAX) 17 GM PACK PO ONE (09:00)
[2022-04-01] MEDS: ARIPiprazole 5 MG TAB PO SCH (09:54)
--- NOTE | 2022-04-01 12:42 | Surgery Progress Note ---
Date of Service April 01, 2022 Assessment & Plan (1) Colonic mass: Plan: colonscopy in AM likely hepatic and pulmonary mets no surgical issues currently Present on Admission?: Yes Admission and Anticipated Discharge Date Admission Date: March 29, 2022 Subjective no complaints taking prep Review of Systems Constitutional: no fever, no chills and no anorexia Ear, Nose, Mouth, Throat: no problem reported Respiratory: no cough, no chest congestion and no dyspnea Cardiovascular: no chest pain and no radiating jaw, neck or arm pain Gastrointestinal: no abdominal pain, no nausea, no vomiting and no change in bowel habits Genitourinary: no dysuria Musculoskeletal: no back pain Neurologic: no localized weakness and no generalized weakness Psychiatric: no behavioral changes Hematologic / Lymphatic: no easy bleeding and no easy bruising Physical Exam Constitutional: + thin Neck: trachea midline Respiratory: normal respiratory effort, lungs clear to auscultation Cardiovascular: RRR, no murmur, no edema Gastrointestinal (Abdomen): Inspection/Auscultation: abdomen normal to inspection, + abdomen distended and normal bowel sounds Percussion/Palpation: abdomen soft and + abdominal mass; abdomen nontender, no guarding and abdomen not rigid Musculoskeletal: Head/Neck/Chest: normocephalic and head atraumatic Skin: no rashes, warm and dry Results & Data ([facility]) Vital Signs (Past 12 Hours) Vital Signs Temp Pulse Resp BP Pulse Ox O2 Del Method 04/01/22 10:54 36.6 C 74 16 113/72 96 Room Air 04/01/22 09:51 36.6 C 77 16 110/73 96 Room Air 04/01/22 09:20 36.7 C 81 16 109/71 95 Room Air 04/01/22 08:49 36.7 C 80 16 114/74 94 Room Air 04/01/22 08:01 Room Air 04/01/22 07:02 36.6 C 73 16 111/70 96 Room Air Diagnostic Findings CT angio chest PE protocol CLINICAL HISTORY: r/o PE, pt w/ mets TECHNIQUE: Multidetector row helical CT of the chest was performed with angiographic protocol. Coronal and sagittal reformations were obtained. Coronal and sagittal MIPS were obtained from the axial data set and were submitted for review. Automated dose lowering techniques and/or adjustment according to patient size were utilized for this exam. CT DOSE: 207.98 mGy.cm Comparison: None available at the time of this dictation. FINDINGS: Lungs and pleura: Minimal atelectasis is noted. Innumerable pulmonary nodules are seen favoring the lower lobes. Prominent nodules include the followin mm pleural-based nodule at the right lung base (series 4 image 49) 4 mm nodule in the left lower lobe (image 51) 4 mm nodule in the right lower lobe (image 58) 13 mm nodule in the right lower lobe (image 78) 12 mm nodule in the left lower lobe (image 83) 3 mm nodule in the left lower lobe (image 92) 3 mm nodule in the left lower lobe (image 119) 4 mm nodule in the left lower lobe (image 129) 3 mm nodule in the right lower lobe (image 131) Heart and pericardium: Heart size is normal. No pericardial effusion. Vessels: No evidence of pulmonary embolism. Mediastinum and saad: Unremarkable. Chest wall and lower neck: Unremarkable. Abdomen: Partial visualization of fine hepatic masses. Bones: Unremarkable. IMPRESSION: 1. No evidence of pulmonary embolism. 2. Numerous pulmonary nodules as above compatible with metastatic disease. 3. Partial visualization of hepatic metastases.
[2022-04-01] MEDS ORDERED: Nursing to Pharmacy Communication SCH (14:00)
[2022-04-01] MEDS ORDERED: POLYETHYLENE (MIRALAX) 17 GM PACK ONE (16:18)
[2022-04-01] MEDS ORDERED: bisacodyL 5 MG TABEC PO ONE (17:00)
[2022-04-02] MEDS: PIPERACILLIN/TAZOBACTAM 3.375 GM in DEXTROSE 5% 100 ML IV SCH ×3 (02:19→17:39)
[2022-04-02 06:44] LABS: Mean Corpuscular Hemoglobin 26.2 pg (25.0-34.0); Mean Corpuscular Hgb Conc 29.6 g/dL (32.0-36.0); Mean Corpuscular Volume 88.5 fL (80.0-100.0); Mean Platelet Volume 9.3 fL (9.4-12.3); Platelet Count 409 K/uL (130-400); RDW Coefficient of Variation 23.6 % (11.5-14.5); RDW Standard Deviation 75.5 fL (36.4-46.3); Red Blood Count 3.05 M/uL (3.93-5.22); White Blood Count 15.45 K/ul (4.8-10.8)
[2022-04-02 07:09] LABS: Albumin Globulin Ratio 0.7 (0.9-2); Albumin Level 2.3 gm/dl (3.4-5.0); BUN Creatinine Ratio 8.5 (10-20); Calcium 8.3 mg/dl (8.5-10.1); Creatinine Clr Calc Pharmacy 62.8 ml/min; Est GFR (African American) 109.6 ml/min; Est GFR (Non-African American) 94.6 ml/min; Globulin 3.4 gm/dl (2.5-4.0); Magnesium 1.7 mg/dl (1.7-2.4); Phosphorus 2.3 mg/dl (2.5-4.9); Potassium 4.3 mmol/L (3.5-5.1); Total Protein 5.7 gm/dl (6.0-8.3)
[2022-04-02] MEDS: D5W AND 1/2NSS 1,000 ML IV SCH ×2 (07:31→18:46)
--- NOTE | 2022-04-02 08:03 | Hospitalist Progress Note ---
Date of Service April 02, 2022 Assessment & Plan (1) Colonic mass: (2) Liver masses: (3) Elevated LFTs: Plan 57-year-old female who presents with 2 months of abdominal pain, ongoing nausea, vomiting, weight loss. She was found to have colon mass with metastases to liver and lungs. 1. Abdominal pain, nausea, vomiting, elevated LFTs. Colon mass. Liver metastases. CT abdomen and pelvis with IV contrast showing 5 cm ascending colon mass with diffuse hepatic metastatic disease and also pulmonary metastatic disease. Colonic neoplasm is diagnosis of exclusion, by CAT scan report. Admitting provider discussed with GI that her LFTs looks like obstructive pattern. GI recommended for liver ultrasound and also IV antibiotics and plan for colonoscopy. IV fluids, IV morphine p.r.n., IV antiemetics p.r.n. GI consulted - Tumor markers ordered Pt underwent colonoscopy today (04/02) Findings: Hemorrhoids were found on perianal exam. A polypoid partially obstructing large mass was found in the ascending colon. The mass was partially circumferential (involving one-third of the lumen circumference). No bleeding was present. Mucosa was biopsied with a cold forceps for histology. Verification of patient identification for the specimen was done by the physician and nurse using the patient's name and date. The pathology specimen was placed into Bottle A. Area was tattooed with an injection of 1 mL of Elli ink. Two sessile polyps were found in the ascending colon. A few small-mouthed diverticula were found in the sigmoid colon. Impression: - Preparation of the colon was fair. - Hemorrhoids found on perianal exam. - Malignant partially obstructing tumor in the ascending colon. This was found just proximal to the IC valve at 70 cm. Biopsied. Tattooed. - Two polyps in the ascending colon. - Diverticulosis in the sigmoid colon. Recommendation: - Return patient to [facility] for ongoing care. - Resume previous diet. - Continue present medications. - Await pathology results. - Further recommendations per oncology going forward after pathology reviewed Surgery - no plan for surg. intervention at this time Oncology - CTA chest, IV venofer x2, follow up as outpt. w/ Dr. Meyer (who sees pt's father as well) - plan for oncology appointment on Saturday CTA chest obtained - no PE Venofer x2 given 2. Anemia, probably secondary to above ongoing illness. Will get Hemoccult, iron studies, vitamin B12, folate levels. FOBT negative Hem/Onc following - recommend IV venofer x2 - given 3. Leukocytosis. On IV Zosyn. We will follow the cultures. Follow the repeat labs. 4. Hyponatremia. Sodium 128 on admission, possibly from nausea and vomiting. Received fluids. Current Na 132 5. Acute kidney injury: - Resolved Creatinine 1.34 on admission Now 1.0 . Creatinine was 0.7 in Epic labs in April 2018. Received fluids. Monitor BMP 6. Mild elevation of troponin, mostly demand ischemia, the patient is asymptomatic. EKG is okay. repeated troponins - trended down 7. Depression: Continue her home medications. DVT prophylaxis: SCDs for now. Plan for colonoscopy and biopsy today DISPOSITION: medical floor Admission and Anticipated Discharge Date Admission Date: March 29, 2022 Subjective Patient seen in follow-up of nausea vomiting, new finding of colon mass, with metastases to liver, lungs Currently laying in bed, in no acute distress No fevers, chills, chest pain, shortness of breath, no abdominal pain Discussed in detail further steps, now s/p colonoscopy w/ biopsy Review of Systems Review of Systems: All systems reviewed & are unremarkable except as noted in Subjective Physical Exam Physical Exam: GENERAL: The patient is of moderate build, not in acute distress. HEENT: Pupils equal, round and reactive to light. EOMI. Oral mucosa moist. NECK: No JVD, no neck masses. CARDIOVASCULAR: S1 and S2 heard. Regular rate and rhythm. No murmur, no gallop. RESPIRATORY: Normal AP diameter. No accessory muscle use. No wheezing, no crackles. ABDOMEN: Soft, bowel sounds present.+ mass at RUQ/epigastric region and RLQ. No guarding, no rigidity, no distention. NEURO:Awake alert oriented, answering questions appropriately, no facial asymmetry, moves extremities EXTREMITIES: Pedal edema present, no erythema seen. Results & Data Results & Data ([facility]) Vital Signs (Past 12 Hours) Vital Signs Temp Pulse Resp BP Pulse Ox O2 Del Method 04/02/22 07:21 36.4 C L 76 16 109/75 95 Room Air 04/01/22 22:23 36.7 C 73 16 119/81 96 Room Air Laboratory Results 04/02/22 04/02/22 Range/Units 06:11 06:11 WBC 15.45 H (4.8-10.8) K/ul RBC 3.05 L (3.93-5.22) M/uL Hgb 8.0 L (12.0-16.0) g/dl Hct 27.0 L (34.1-44.9) % MCV 88.5 (80.0-100.0) fL MCH 26.2 (25.0-34.0) pg MCHC 29.6 L (32.0-36.0) g/dL RDW Std Deviation 75.5 H (36.4-46.3) fL RDW Coeff of Josef 23.6 H (11.5-14.5) % Plt Count 409 H (130-400) K/uL MPV 9.3 L (9.4-12.3) fL Sodium 130 L (136-145) mmol/L Potassium 4.3 (3.5-5.1) mmol/L Chloride 102 (98-107) mmol/L Carbon Dioxide 20 L (21-32) mmol/L Anion Gap 8 (3-11) BUN 6 (6-23) mg/dl Creatinine 0.71 (0.6-1.2) mg/dl Est Cr Clr Drug Dosing 62.8 ml/min Est GFR ( Amer) 109.6 ml/min Est GFR (Non-Af Amer) 94.6 ml/min BUN/Creatinine Ratio 8.5 L (10-20) Glucose 98 (70-99(Fasting)) mg/dl Calcium 8.3 L (8.5-10.1) mg/dl Phosphorus 2.3 L (2.5-4.9) mg/dl Magnesium 1.7 (1.7-2.4) mg/dl Total Bilirubin 6.0 H (0.2-1.0) mg/dl AST 139 H (13-39) U/L ALT 78 H (7-52) U/L Alkaline Phosphatase 768 H (34-104) U/L Total Protein 5.7 L (6.0-8.3) gm/dl Albumin 2.3 L (3.4-5.0) gm/dl Globulin 3.4 (2.5-4.0) gm/dl Albumin/Globulin Ratio 0.7 L (0.9-2)
--- NOTE | 2022-04-02 08:18 | History & Physical Report ---
Date of Service April 02, 2022 Assessment & Plan (1) Liver masses: (2) Colonic mass: (3) Elevated LFTs: Plan Plan for colonoscopy today for biopsy of colon mass. Admission and Anticipated Discharge Date Admission Date: March 29, 2022 History of Present Illness Chief Complaint: Patient found to have new colon mass on imaging with liver and pulmonary mets. Plan for colonoscopy today for tissue biopsy. Primary Care Provider: NO PCP Patient presents today for colonoscopy. Allergies Allergy/AdvReac Type Severity Reaction Status Date / Time No Known Allergies Allergy Verified 03/29/22 17:24 Home Medications Medication Instructions Recorded Confirmed Type aripiprazole 5 mg tablet 5 mg PO DAILY 03/29/22 03/29/22 History escitalopram oxalate 20 mg tablet 20 mg PO DAILY 03/29/22 03/29/22 History lamotrigine 100 mg tablet 100 mg PO DAILY 03/29/22 03/29/22 History Past Med/Surg History Social History Smoking Status: Former smoker Second Hand Exposure: No; Hx Alcohol Use: Yes Alcohol type: wine Hx Substance Use: No Preferred Language: Polish Communication Ability: Effective Skinner Pelts Required: No Beliefs That Will Affect Care: None Current Living Situation: Alone Feels Safe at Home: Yes and No Is there a partner from a previous relationship who is making you feel unsafe now?: No Assistive Devices: None Review of Systems All systems reviewed & are unremarkable except as noted in HPI & below Physical Exam Constitutional: WD/WN, vitals as above Eyes: PERRL, conjunctivae normal, anicteric sclerae Respiratory: normal respiratory effort, lungs clear to auscultation Cardiovascular: RRR, no murmur, no edema Gastrointestinal (Abdomen): normal bowel sounds, soft, nontender, no hepatosplenomegaly Skin: no rashes, warm and dry Psychiatric: A+Ox3, euthymic affect Results & Data ([facility]) Vital Signs (Past 12 Hours) Vital Signs Temp Pulse Resp BP Pulse Ox O2 Del Method 04/02/22 07:21 36.4 C L 76 16 109/75 95 Room Air 04/01/22 22:23 36.7 C 73 16 119/81 96 Room Air Code Status & VTE Plan VTE Prophylaxis Plan VTE Prophylaxis will be ordered: Yes
--- NOTE | 2022-04-02 08:24 | Anesthesiology Consultation ---
Date of Service April 02, 2022 Assessment & Plan (1) Encounter for pre-operative examination: Chart Review Chart Review: Acceptable Risk for Surgery, Patient NOT seen in Pre Admission Testing and boot and saddle repair person initiated Consults Requested none ASA ASA3 Proposed Anesthesia Anesthesia Type: MAC Risk / Benefits Reviewed With: PT / POA / Parent / Guardian, Accepts Plan and Informed Consent Obtained History Surgery Operation Date: 04/02/22 16:30 Proposed Procedures p Colonoscopy Holly Barrera, Height/Weight Height: 5 ft Weight: 53.7 kg Allergies Allergy/AdvReac Type Severity Reaction Status Date / Time No Known Allergies Allergy Verified 04/02/22 08:22 Medications Home Medications Medication Instructions Recorded Confirmed Last Taken aripiprazole 5 mg tablet 5 mg PO DAILY 03/29/22 03/29/22 03/29/22 escitalopram oxalate 20 mg tablet 20 mg PO DAILY 03/29/22 03/29/22 03/29/22 lamotrigine 100 mg tablet 100 mg PO DAILY 03/29/22 03/29/22 03/29/22 Active Medications Generic Name Dose Route Start Last Admin Trade Name Freq PRN Reason Stop Dose Admin Aripiprazole 7.5 mg 04/01/22 09:00 04/01/22 09:54 Aripiprazole 5 Mg Tab PO 05/01/22 08:59 7.5 mg DAILY LATESHA Administration Escitalopram Oxalate 20 mg 03/30/22 09:00 04/01/22 08:52 Escitalopram Oxalate 20 Mg Tab PO 04/29/22 08:59 20 mg DAILY LATESHA Administration Dextrose/Sodium Chloride 1,000 mls @ 100 mls/hr 03/29/22 21:39 04/02/22 08:15 D5w And 1/2nss IV 04/28/22 21:38 0 mls/hr .Q10H LATESHA Infusion Piperacillin Sod/Tazobactam 115 mls @ 28.75 mls/hr 03/30/22 02:00 04/02/22 0 5:52 Sod 3.375 gm/ Dextrose IV 04/09/22 01:59 Infused Q8H LATESHA Infusion Protocol Lamotrigine 100 mg 03/30/22 09:00 04/01/22 08:51 Lamotrigine 100 Mg Tab PO 04/29/22 08:59 100 mg DAILY LATESHA Administration Morphine Sulfate 3 mg 03/29/22 21:39 04/01/22 22:12 Morphine Sulfate 4 Mg/Ml 1 Ml Carp\Vial IV 04/12/22 21:38 3 mg Q4H PRN Administration Pain Ondansetron HCl 4 mg 03/29/22 21:39 04/01/22 17:56 Ondansetron Inj 2 Mg/Ml 2 Ml Vial IV 04/28/22 21:38 4 mg Q6H PRN Administration Nausea Potassium Chloride 20 meq 03/31/22 15:30 04/01/22 21:54 Potassium Chloride Crtab 20 Meq Tabcr PO 04/30/22 15:29 20 meq TID LATESHA Administration Past Medical History Medical History (Updated 04/02/22 @ 08:23 by Aleks Weiss MD) Encounter for pre-operative examination Social History Smoking Status: Former smoker Do You Dip or Chew Tobacco: No Hx Alcohol Use: Yes Alcohol type: wine alcohol intake frequency: other Alcohol Intake Frequency Comment: no drink over 3 weeks Hx Substance Use: No Physical Exam Vital Signs Last Vital Signs Temp 36.4 C L 04/02/22 07:21 Pulse 76 04/02/22 07:21 Resp 16 04/02/22 07:21 BP 109/75 04/02/22 07:21 Pulse Ox 95 04/02/22 07:21 O2 Del Method 04/02/22 07:21 Testing Laboratory Results 04/02/22 06:11 04/02/22 06:11 Urine Color Dark Yellow 03/29/22 21:00 Urine Appearance Cloudy (Clear) A 03/29/22 21:00 Urine pH 5.5 (4.5-7.5) 03/29/22 21:00 Ur Specific [place] 1.042 (1.000-1.030) H 03/29/22 21:00 Urine Protein 1+ (Negative) H 03/29/22 21:00 Urine Glucose (UA) Negative (Negative) 03/29/22 21:00 Urine Ketones Negative (Negative) 03/29/22 21:00 Urine Nitrite Positive (Negative) A 03/29/22 21:00 Ur Leukocyte Esterase Trace (Negative) H 03/29/22 21:00 Urine WBC (Auto) 1-5 /hpf (0-5) 03/29/22 21:00 Urine RBC (Auto) 0-4 /hpf (0-4) 03/29/22 21:00 U Hyaline Cast (Auto) 1-5 /lpf (0-5) 03/29/22 21:00 U Epithel Cells (Auto) 20-30 /lpf (0-5) H 03/29/22 21:00 Urine Bacteria (Auto) Negative (Negative) 03/29/22 21:00 03/29/22 17:42 Aerobic Blood Culture - Preliminary Blood No growth in Aerobic bottle after 48 hours. Anaerobic Blood Culture - Preliminary No growth in Anaerobic bottle after 48 hours. 03/29/22 17:50 Aerobic Blood Culture - Preliminary Blood No growth in Aerobic bottle after 48 hours. Anaerobic Blood Culture - Preliminary No growth in Anaerobic bottle after 48 hours. 03/29/22 21:00 Urine Culture - Final Urine,Clean Catch Gram positive bacilli Electrocardiogram Date: 03/29/22 Test Reason : Blood Pressure : / mmHG Vent. Rate : 079 BPM Atrial Rate : 079 BPM P-R Int : 138 ms QRS Dur : 082 ms QT Int : 396 ms P-R-T Axes : 070 011 047 degrees QTc Int : 454 ms Normal sinus rhythm Normal ECG No previous ECGs available Confirmed by Chencho Scott ([id number]) on 03/30/2022 10:05:36 AM
[2022-04-02] MEDS ORDERED: PROPOFOL IV EMULSION 10 MG/ML 20 ML VIAL IV ONE (08:29)
[2022-04-02] MEDS ORDERED: LIDOCAINE 2% MPF LOCAL 5 ML VIAL INFIL ONE (08:29)
[2022-04-02] MEDS ORDERED: MIDAZOLAM HCL 1 MG/ML 2ML VIAL ONE (08:29)
[2022-04-02] MEDS ORDERED: ONDANSETRON INJ 2 MG/ML 2 ML VIAL ONE (08:29)
[2022-04-02] MEDS ORDERED: ENDOSCOPIC MARKER 5 ML SYR TOP ONE (09:03)
--- NOTE | 2022-04-02 09:27 | GI REPORT ---
Patient Name: Padmini Graham Procedure Date: 04/02/2022 8:26 AM Date of : 1965 Admit Type: Inpatient Age: 57 Gender: Female Attending MD: Flory Barrera DO, Procedure: Colonoscopy Providers: Flory Barrera DO Referring MD: Nghia Vo Md Indications: Suspected colon cancer, Abnormal CT of the GI tract, Weight loss Patient Profile: This is a 57 year old female. Refer to note in patient chart for documentation of history and physical. Medicines: Monitored Anesthesia Care Complications: No immediate complications. Estimated Blood Loss: Estimated blood loss was minimal. Procedure: Pre-Anesthesia Assessment: - Prior to the procedure, a History and Physical was performed, and patient medications and allergies were reviewed. The risks and benefits of the procedure and the sedation options and risks were discussed with the patient. All questions were answered and informed consent was obtained. Patient identification and proposed procedure were verified by the physician, the nurse and the job placement counselor in the procedure room. Mental Status Examination: alert and oriented. Airway Examination: Mallampati Class II (the uvula but not tonsillar pillars visualized). Respiratory Examination: clear to auscultation. CV Examination: RRR, no murmurs, no S3 or S4. Prophylactic Antibiotics: The patient does not require prophylactic antibiotics. Prior Anticoagulants: The patient has taken no anticoagulant or antiplatelet agents. ASA Grade Assessment: III - A patient with severe systemic disease. After reviewing the risks and benefits, the patient was deemed in satisfactory condition to undergo the procedure. The anesthesia plan was to use monitored anesthesia care (MAC). Immediately prior to administration of medications, the patient was re-assessed for adequacy to receive sedatives. The physical status of the patient was re-assessed after the procedure. After I obtained informed consent, the scope was passed under direct vision. Throughout the procedure, the patient's blood pressure, pulse, and oxygen saturations were monitored continuously. The Colonoscope was introduced through the anus and advanced to the cecum, identified by appendiceal orifice and ileocecal valve. The colonoscopy was performed without difficulty. The patient tolerated the procedure well. The quality of the bowel preparation was fair. The ileocecal valve, appendiceal orifice, and rectum were photographed. Findings: Hemorrhoids were found on perianal exam. A polypoid partially obstructing large mass was found in the ascending colon. The mass was partially circumferential (involving one-third of the lumen circumference). No bleeding was present. Mucosa was biopsied with a cold forceps for histology. Verification of patient identification for the specimen was done by the physician and nurse using the patient's name and date. The pathology specimen was placed into Bottle A. Area was tattooed with an injection of 1 mL of Elli ink. Two sessile polyps were found in the ascending colon. A few small-mouthed diverticula were found in the sigmoid colon. Impression: - Preparation of the colon was fair. - Hemorrhoids found on perianal exam. - Malignant partially obstructing tumor in the ascending colon. This was found just proximal to the IC valve at 70 cm. Biopsied. Tattooed. - Two polyps in the ascending colon. - Diverticulosis in the sigmoid colon. Recommendation: - Return patient to [facility] for [facility] care. - Resume previous diet. - Continue present medications. - Await pathology results. - Further recommendations per oncology going forward after pathology reviewed Flory Barrera DO 04/02/2022 9:26:58 AM Note Initiated On: 04/02/2022 8:26 AM Number of Addenda: 0 I attest to the content of the Intraoperative Record and orders documented therein, exceptions below {[id number]}
[2022-04-02] MEDS: MoRPHine SULFATE 4 MG/ML 1 ML CARP\\VIAL IV PRN ×2 (11:03→18:51)
[2022-04-02] MEDS: lamoTRIgine 100 MG TAB PO SCH (11:09)
[2022-04-02] MEDS: ESCITALOPRAM OXALATE 20 MG TAB PO SCH (11:09)
[2022-04-02] MEDS: ARIPiprazole 5 MG TAB PO SCH (11:09)
[2022-04-02 12:31] LABS: AFP Tumor Marker Serum 2.4 ng/mL
--- NOTE | 2022-04-02 13:32 | Anesthesiology Progress Note ---
Date of Service April 02, 2022 Anesthesia Post Procedure Vital Signs Vital Signs: Temp Pulse Resp BP Pulse Ox O2 Del Method 04/02/22 09:51 77 18 130/79 100 Room Air 04/02/22 09:35 77 18 120/77 100 Room Air 04/02/22 09:20 76 18 110/71 100 Room Air 04/02/22 07:26 Room Air 04/02/22 08:23 37.1 C 94 H 18 125/80 96 Room Air 04/02/22 07:21 36.4 C L 76 16 109/75 95 Room Air 04/01/22 22:23 36.7 C 73 16 119/81 96 Room Air 04/01/22 15:44 36.7 C 75 16 117/81 96 Room Air Pain Intensity Left Upper Abdomen: Pain Intensity: 4 Abdomen: Pain Intensity: 3 Transfer of Care Handoff Completed per policy Notes Mental Status: alert / awake / arousable and participated in evaluation Patient Amnestic to Procedure: Yes Nausea / Vomiting: adequately controlled Pain: adequately controlled Airway Patency, RR, SpO2: stable & adequate BP & HR: stable & adequate Hydration State: stable & adequate Anesthetic Complications: no major complications apparent and Pt Satisfied with anesthetic care
[2022-04-03] MEDS: PIPERACILLIN/TAZOBACTAM 3.375 GM in DEXTROSE 5% 100 ML IV SCH ×3 (02:08→18:18)
[2022-04-03] MEDS: D5W AND 1/2NSS 1,000 ML IV SCH ×2 (04:22→14:43)
[2022-04-03] MEDS: ESCITALOPRAM OXALATE 20 MG TAB PO SCH (09:25)
[2022-04-03] MEDS: lamoTRIgine 100 MG TAB PO SCH (09:25)
[2022-04-03] MEDS: ARIPiprazole 5 MG TAB PO SCH (09:25)
[2022-04-03] MEDS: MoRPHine SULFATE 4 MG/ML 1 ML CARP\\VIAL IV PRN ×3 (09:28→20:33)
[2022-04-03 10:26] LABS: Hematocrit (blood only) 25.9 % (34.1-44.9); Mean Corpuscular Hemoglobin 26.3 pg (25.0-34.0); Mean Corpuscular Hgb Conc 30.9 g/dL (32.0-36.0); Mean Corpuscular Volume 85.2 fL (80.0-100.0); Mean Platelet Volume 9.2 fL (9.4-12.3); Platelet Count 361 K/uL (130-400); RDW Coefficient of Variation 23.9 % (11.5-14.5); RDW Standard Deviation 74.1 fL (36.4-46.3); Red Blood Count 3.04 M/uL (3.93-5.22); White Blood Count 17.59 K/ul (4.8-10.8)
[2022-04-03 10:52] LABS: BUN Creatinine Ratio 7.9 (10-20); Calcium 7.9 mg/dl (8.5-10.1); Creatinine Clr Calc Pharmacy 58.7 ml/min; Est GFR (African American) 100.9 ml/min; Est GFR (Non-African American) 87.1 ml/min; Magnesium 1.5 mg/dl (1.7-2.4); Phosphorus 2.4 mg/dl (2.5-4.9); Potassium 3.5 mmol/L (3.5-5.1)
--- NOTE | 2022-04-03 12:25 | XRay Report ---
KUB HISTORY: Generalized abdominal pain. History of colonic mass. COMPARISON: Abdomen and pelvis CT 03/29/2022. FINDINGS: Gas-filled nondilated loops of large and small bowel are seen throughout the abdomen. No ev idence for bowel obstruction at this time. The liver remains enlarged. No renal calculi. No ureteral calculi. No pneumoperitoneum or pneumatosis. IMPRESSION: 1. No evidence for bowel obstruction at this time. 2. Persistent hepatomegaly. ACT 112: Negative or not required by law. Electronically signed by: Alexei Adamson M.D. 04/03/2022 12:23 PM
--- NOTE | 2022-04-03 16:05 | Palliative Care Consultation ---
Date of Consultation April 04, 2022 Assessment & Plan (1) Palliative care encounter: I introduced Pall med to pt and family. We discussed that cancer patients experience significant symptom and psychosocial burden for which the early integration of supportive oncology with palliative medicine (early findings from the research of Leroy and Stephen) help address a growing need to manage patients comprehensively, with an emphasis on symptom control, nutritional and psychosocial support, and pharmaceutical review. Palliative care consultation in patients with advanced cancer is not only associated with an improvement in the quality of oncology care, but also a reduction in downstream healthcare utilization. In Arnold et al 2017, when the automatic palliative medicine consult was triggered by specific oncology criteria, 30-day readmission rates and use of chemotherapy after discharge declined, whereas hospice referrals and uptake of support services post-discharge increased. Patients with advanced cancer admitted to an acute care hospital often have short life expectancies and high morbidity - for these patients, the integration of palliative care has improved symptom burden, reduced patient and caregiver distress, increased referral to hospice, and improved outcomes. (2) Advanced care planning/counseling discussion: There has been some concern about who would be patient's decision maker. Yesterday, her sister explained to staff that she wished to be the patient's POA and that we needed to accommodate this. She was advised at that time the medical providers do not engage in completion of POA paperwork and this will be something to pursue through their personal attorneys. I discussed this with the patient today who shares that her current POA paperwork designates her brother and [id number] as her agents in the event she becomes unable to make her own decisions. However, since becoming diagnosed with this cancer, and after persistent discussions with her sister, she is decided to change this to her sister. Of note, patient's friend at the bedside adds that patient does not have any errors and it would be only her family and her close friends as her primary support network. I asked the patient if she wants to have anyone designated as her primary decision-maker and she replied that she wants to be in charge of her medical decision making. She does follow with psychiatry on a regular basis in [place], however this has been for ongoing management of a lifelong struggle with depression and anxiety. She does not have any issues with competency or decisional capacity. She has not required any court appointed guardianship for same. 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 Her mother shares that she has a masters degree in human resources and administration. Patient was able to retire early after a successful career with the [employer]. Patient understands the implications of her medical issues and the decision she has been asked to make so far. She understands and tells me clearly that her cancer is an advanced cancer, stage IV, not curable. She also shares that she was advised this is "not a survivable cancer." We discussed the implications and definition of "survivable" and I advised her that the overall aim of any therapy is offered at this time would be to try and control the illness and/or slow its progression. To what extent this will happen remains to be seen but there is always the potential that she may have a prolonged amount of time with the disease control and progression control. I encourage patient to think about potential what if scenarios such as disease progression or worsening. I told her these are advanced care planning or advanced illness maangement discussions: Advance illness planning conversations are conducted to review goals and expectations, support shared decision-making, and engage in disease specific advance care planning. This type of advance care planning is sometimes referred to as 'preparedness planning. It is used to review the risks and benefits of offered therapy, elicit and deepen understanding of the underlying illness and therapeutic options, ensure adequate psychosocial support, address existential concerns and coping, and engage in end-of-life planning. Preparedness planning is not meant to replace informed consent discussions. Palliative medicine plays a role in the process of deepening a patients understanding of this specific medical intervention and ensuring this treatment aligns with their goals of care remains a central tenet of the planning conversation. We discussed the potential inevitability that in these instances she may need to make harder decisions about limitations in care or advanced therapy and modalities which may be stopped When Assessing decision making capacity: To be deemed decisional, a provider must be satisfied that a patient is able to do three tasks: 1. Receive information (e.g. must be awake, but not necessarily oriented x 4), 2. Evaluate, deliberate, and mentally manipulate information, and 3. Communicate a treatment preference (e.g. the comatose patient by definition is not decisional). Providers should look for: 1. Understanding. Does the patient adequately understand the information about the risks, benefits, and alternatives of what is being proposed? The patient does not have to agree with your interpretation, but should be able to repeat what you have said. Ask, Can you repeat to me the options for treating X I have just discussed with you? Can you explain to me why you feel that way? What is your understanding of what will happen if we dont do Y? 2. Logic. Is the logic the patient uses to arrive at the decision not- irrational? One wants, as much as possible to make sure the patients values are speaking, rather than an underlying mental or physical illness. Note: Severe depression or hopelessness will make it difficult to interpret decisionality; consult psychiatry for assistance with this or other complex cases. 3. Consistency. Is the patient able to make a decision with some consistency? This means not changing ones mind every time one is asked. Is the decision consistent with the patients values? If there is a change in the patient values, can the patient explain the change? Decision making capacity is contingent. 4. Task specific. Deciding if the patient is decisional means weighing the degree to which the patient has decision making capacity against the objective risks and benefits to the patient. Some decisions are more complex than others, requiring a higher level of decision-making capacity. Thus a moderately demented patient may be able to make some decisions (e.g. antibiotics for pneumonia) but not others (e.g. chemotherapy for metastatic lung cancer). This sliding scale view of decisionality holds that it is proper to require a higher level of certainty when the decision poses great harm. References: Abbi LUCAS. The Many Faces of Competency. [facility] Report. 1985;15(2):17-2. Angelica C, Gregor Mayberry. Practical Ethics for Students, Interns and Residents. A Short Reference Manual. 2nd Edition. [employer]; 1998. Mason WASHINGTON, Deniz Akins. A guide to assessing decision-making capacity. Miguelito Clin J Med. 2004; 71:971-5. (3) Cancer related pain: Currently on prn Will leave this for now as she is not able to take PO and remains nauseated. Please consider starting a scheduled antiemetic such as Zofran ODT 4mg BID (4) Constipation: For constipation, please consider the following: Hydration optimization: drink Pedialyte, Gatorade, water, powerade tolerated. Take Senna-S 2 tabs by mouth twice a day Take Miralax 2 scoops daily Use Milk of Magnesia daily for three days/or until +bowel movement, whichever comes first There is a tea by a brand called "Yogi" which is called "Smooth Move" - it is a senna tea to help with constipation. Patient may try prune juice if desired - patients have said that gently warming the prune juice before drinking made if more effective. Fleets or mineral oil enemas are over the counter - can try this once a day for 2-3 days ONLY IF OK WITH CANCER DOCS. If no relief in 2-3 days with the above, please drink on bottle of Magnesium Citrate (this comes in [place] or [place] flavors, best if you keep the bottle in refrigerator for a few hours before drinking, or pour over ice.) this tends to work almost too well, so plan to be home and close to the bathroom on the day you take it. Do not plan travel or long car rides, etc. If at ANY point pt has worsening nausea or vomiting, worsening abdominal pain or dehydration, then obstruction work up is needed. (5) Depression: her baseline depression has intensified with new cancer diagnosis and her anxiety has increased. I have asked for a psych consult to assure we are optimizing her med mgt. As far as depression management, few medications will treat this in an immediate way. We discussed what has helped her cope with struggles in the past? (fanly/friends ) Do you feel you have good friends/family support that you can reach out to ? (yes) I am attaching some links here for more information about getting help for depression for cancer patients. There are many free online/web based resources that may be more useful right now given how restricted in person events like support groups have become due to Covid: https://www.cancer.org/treatment/treatmen na-lpp-fzil-effects/nyvjvgry-eium-efrapot/mpcqkkwmg-xaux-hyplrkr/depression.html https://www.cancer.gov/about-cancer/coping/feelings/depression-pdq Decisional capacity (6) Cachexia: (7) Weakness generalized: Plan Discussions were held with patient, her mother and best friend as outlined above. Patient has plans already in place to change her POA to her sister. She is aware the [place] law indicates that patients are not allowed to make their own decisions for as long as they are able. Patient is decisionally competent. She does not have any evidence of decisional incapacity at this time. I will defer the issue of legal competency to the psychiatry team. No changes were made today for patient's pain management given that they are using IV morphine as needed and she is n.p.o. for procedure today. We can begin transitioning her to an oral regimen once she is able to safely take p.o. Her weight loss and cachexia were discussed. At this time would recommend a nutrition evaluation to determine how best to optimize her caloric intake on a regular basis, likely through supplemental nutrition such as shakes. Patient has an extremely strong and well assembled support network of friends and family. Her mother does have some mild to moderate dementia but remains fully functional, processes information relatively consistently and is able to help in the care of the patient. Where there are more limitations noted during today's discussion was in the fact the patient's mother was very unable to understand that this was not a curable cancer. This is likely a limitation of her dementia related cognitive changes. History of Present Illness Reason for Consultation: "goals of care, symptom mgt" Attending Physician: Nghia Vo MD History of Present Illness 57yo female admitted 03/29/22 with compliant of worsening abd pain and firmness x 3 weeks; pt splits her time between [place] and [place] residences, admitting notes indicate her medical providers are in [place]. Evaluation at time of admission highly suspect for met colon ca. imaging done in the ER revealed an enlarged liver diffusely infiltrated by confluent multifocal metastatic disease. There is a right lobe lesion measuring 7.5 cm.There is an indeterminate left adrenal nodule. There was a mass noted in the proximal ascending colon measuring at least 5.5 cm and causing a colocolic intussusception. There is no upstream obstruction noted. There is a small volume of abdominopelvic ascites. There is lymphadenopathy noted with mildly enlarged upper abdominal lymph nodes that are suspicious for metastatic disease. No lytic or blastic lesions are seen. Additionally a chest CT was done which revealed minimal atelectasis but innumerable pulmonary nodules favoring the lower lobes: Prominent nodules include the followin mm pleural-based nodule at the right lung base (series 4 image 49) 4 mm nodule in the left lower lobe (image 51) 4 mm nodule in the right lower lobe (image 58) 13 mm nodule in the right lower lobe (image 78) 12 mm nodule in the left lower lobe (image 83) 3 mm nodule in the left lower lobe (image 92) 3 mm nodule in the left lower lobe (image 119) 4 mm nodule in the left lower lobe (image 129) 3 mm nodule in the right lower lobe (image 131) A KUB was done this morning. There is no evidence for bowel obstruction noted and there is persistent hepatomegaly. Of note a venous Doppler study did not find evidence of DVT in either lower extremity. There is however a left popliteal cyst noted. Oncology consult in agreement, colonoscopy and bx done yesterday, 04/02/22, pathology is pending. Pt is seen at bedside together with her mother and best friend. patient and mother share that they all split their time between [facility] and [facility]. Patient was last seen 2 weeks ago during which time her abd distension, weakness and frailty markedly increased per her mother. pt shares she has been feeling progressively unwell for the last 6-9 mos, with worsening abd and back pain, increasing abd distension, dyspnea, worsening anorexia, weight loss, weakness. She has been disengaging from her usual ac tivities, for example [place] the [place] but recently dropped to once a week and needed to stop 4 times during the walk. her dyspnea has been worsening for a few months as well but has been signif distressing for past few weeks, she cannot walk for long before she needs to stop/rest/recover. pt has been seen by oncology. she shares that her father is under Dr Meyer's care for ?melanoma and so as a family they would like her to have the same oncologist. She and family share they met with Dr Meyer last night and again this morning. He has shared that he feels this is likely an adeno ca of colon, it is Stage IV/metastatic disease and while it is not curable, we are hopeful chemo may help slow things down/allow for some control of disease. He has offered FOLFOX if this is proven to be adenoca of colon. pathology is pending. Patient states that apart from her progressing weakness, she remains able to perform all of her activities of daily living. She admits that she is moving slower than usual. Allergies Allergy/AdvReac Type Severity Reaction Status Date / Time No Known Allergies Allergy Verified 04/02/22 08:22 Home Medications Medication Instructions Recorded Confirmed Type aripiprazole 5 mg tablet 5 mg PO DAILY 03/29/22 03/29/22 History escitalopram oxalate 20 mg tablet 20 mg PO DAILY 03/29/22 03/29/22 History lamotrigine 100 mg tablet 100 mg PO DAILY 03/29/22 03/29/22 History Patient History Medical History (Updated 04/04/22 @ 13:48 by CHRISTOS Ackerman) Encounter for pre-operative examination Social History Smoking Status: Former smoker Second Hand Exposure: No; Hx Alcohol Use: Yes Alcohol type: wine Hx Substance Use: No Preferred Language: Luxembourger Communication Ability: Effective Crayon Grader Required: No Beliefs That Will Affect Care: None Current Living Situation: Alone Feels Safe at Home: Yes and No Is there a partner from a previous relationship who is making you feel unsafe now?: No Assistive Devices: None Review of Systems Review of Systems: All systems reviewed & are unremarkable except as noted in HPI & below Physical Exam Physical Exam: Patient is seen while lying in bed. She is thin and frail appearing. She prefers that the room be kept dark but her color does look a bit ashen. Her pupils are nonicteric. Her eyes are reactive and equal to light. Her mucosa is slightly dry. Her dentition is intact. Her skin is delicate and somewhat dry. Her heart tones are normal. S1 is 2 without any murmur noted. There is no JVD. Chest sounds are clear anteriorly with no wheezes, Rales or rhonchi. Abdomen is distended. It is firm to palpation. Bowel sounds are diminished. There is tenderness noted with palpation throughout greater on the right than the left. Pain does radiate from mid lower back around to the anterior right middle quadrant. There is a palpable liver edge with deep palpation however this is noted to cause patient significantly more discomfort. She is moving her extremities and strength is diminished but equal bilaterally. Sensation is intact. She is awake alert and oriented x3. She is able to follow commands and she is cooperative with this examiner. Results & Data ([facility]) Vital Signs (Past 12 Hours) Vital Signs Temp Pulse Resp BP Pulse Ox O2 Del Method 04/03/22 14:00 89 18 111/75 98 Room Air 04/03/22 07:13 36.8 C 81 16 97/62 L 97 Room Air Laboratory Results Labs and imaging are reviewed PG Care Time/CCT Total # of Minutes Spent Total Time Spent: 90 Total Time Spent with Patient: Total time spent is greater than 50% in coordination of care (as documented) at patient's floor/unit and/or counseling patient: I spent 90 minutes overall addressing this case: 15 in medical data review/discussion with referring provider(s) and/or preparation for the visit 65 in direct interaction with the patient and family 25 o aove 65min spent on Advance Care Planning/Goals of Care discussions as detailed above in note (must be >16min) 5 in subsequent review and synthesis of assessment and plan 5 in communicating with other providers regarding the patient's case: [] Prolonged Care Time Prolonged Care Time: Yes Advanced Care Planning 56778 Advanced Care Planning 30 [place] [address] Inpt Consult Level 5 Patient Type New History Comprehensive Exam Comprehensive Medical Decision Making High Complexity Diagnoses Palliative care encounter Z51.5 Advanced care planning/counseling discussion Z71.89 Cancer related pain G89.3 Constipation K59.00 Depression F32.A Cachexia R64 Weakness generalized R53.1 Additional Codes Prolonged Care Time - Prolonged Care Time: Yes ([id number]) Advanced Care Planning - 30059 Advanced Care Planning 30 Min: 13132 Advanced Ca re Planning 30 Min ([id number])
[2022-04-03] MEDS: LACTATED RINGER'S 1,000 ML IV SCH (20:23)
--- NOTE | 2022-04-03 21:31 | Hospitalist Progress Note ---
Date of Service April 03, 2022 Assessment & Plan (1) Colonic mass: (2) Liver masses: (3) Elevated LFTs: Plan 57-year-old female who presents with 2 months of abdominal pain, ongoing nausea, vomiting, weight loss. She was found to have colon mass with metastases to liver and lungs. 1. Abdominal pain, nausea, vomiting, elevated LFTs. Colon mass. Liver metastases. CT abdomen and pelvis with IV contrast showing 5 cm ascending colon mass with diffuse hepatic metastatic disease and also pulmonary metastatic disease. Colonic neoplasm is diagnosis of exclusion, by CAT scan report. Admitting provider discussed with GI that her LFTs looks like obstructive pattern. GI recommended for liver ultrasound and also IV antibiotics and plan for colonoscopy. IV fluids, IV morphine p.r.n., IV antiemetics p.r.n. GI consulted - Tumor markers ordered Pt underwent colonoscopy (04/02) Findings: Hemorrhoids were found on perianal exam. A polypoid partially obstructing large mass was found in the ascending colon. The mass was partially circumferential (involving one-third of the lumen circumference). No bleeding was present. Mucosa was biopsied with a cold forceps for histology. Verification of patient identification for the specimen was done by the physician and nurse using the patient's name and date. The pathology specimen was placed into Bottle A. Area was tattooed with an injection of 1 mL of Elli ink. Two sessile polyps were found in the ascending colon. A few small-mouthed diverticula were found in the sigmoid colon. Impression: - Preparation of the colon was fair. - Hemorrhoids found on perianal exam. - Malignant partially obstructing tumor in the ascending colon. This was found just proximal to the IC valve at 70 cm. Biopsied. Tattooed. - Two polyps in the ascending colon. - Diverticulosis in the sigmoid colon. Recommendation: - Return patient to [facility] for ongoing care. - Resume previous diet. - Continue present medications. - Await pathology results. - Further recommendations per oncology going forward after pathology reviewed Surgery - no plan for surg. intervention at this time Oncology - CTA chest, IV venofer x2, follow up as outpt. w/ Dr. Meyre (who sees pt's father as well) - plan for oncology appointment on Saturday CTA chest obtained - no PE Venofer x2 given 04/03 KUB- reviewed Discussed with the patient and her sister at the bedside. Patient is not feeling well today, and they would like if oncology can see them while in the hospital. Dr. Meyer contacted. They would also like to see Palliative medicine, and they were consulted. Speech eval also ordered and GI contacted and given patient's difficulty swallowing/discomfort with swallowing. 2. Anemia, probably secondary to above ongoing illness. Will get Hemoccult, iron studies, vitamin B12, folate levels. FOBT negative Hem/Onc following - recommend IV venofer x2 - given 3. Leukocytosis. On IV Zosyn. We will follow the cultures. Follow the repeat labs. Discussed with GI today, recommend to continue antibiotics. 4. Hyponatremia. Sodium 128 on admission, possibly from nausea and vomiting. Received fluids. Na improved 5. Acute kidney injury: - Resolved Creatinine 1.34 on admission Now 1.0 . Creatinine was 0.7 in Epic labs in April 2018. Received fluids. Monitor BMP 6. Mild elevation of troponin, mostly demand ischemia, the patient is asymptomatic. EKG is okay. repeated troponins - trended down 7. Depression: Continue her home medications. DVT prophylaxis: SCDs (underwent colonoscopy w/ biopsy) DISPOSITION: medical floor Admission and Anticipated Discharge Date Admission Date: March 29, 2022 Subjective Patient seen in follow-up of nausea vomiting, new finding of colon mass, with metastases to liver, lungs Patient underwent colonoscopy with biopsy yesterday It was plan to discharge her today and follow-up with her oncologist tomorrow as outpatient However patient does not feel well today, has some abdominal distention, and also back pain Discussed in detail with patient and her sister at the bedside. They would like if oncologist, Dr. Meyer could see them in the hospital instead and also involve palliative medicine. They are also concerned about her swallowing. It seems that patient has some difficulty swallowing for some time. She was able to finish her prep however she seems uncomfortable for her to swallow. Speech evaluation also contacted and GI aware. KUB ordered. Currently laying in bed, in no acute distress No fevers, chills, chest pain, shortness of breath. Review of Systems Review of Systems: All systems reviewed & are unremarkable except as noted in Subjective Physical Exam Physical Exam: GENERAL: The patient is of moderate build, not in acute distress. HEENT: Pupils equal, round and reactive to light. EOMI. Oral mucosa moist. NECK: No JVD, no neck masses. CARDIOVASCULAR: S1 and S2 heard. Regular rate and rhythm. No murmur, no gallop. RESPIRATORY: Normal AP diameter. No accessory muscle use. No wheezing, no crackles. ABDOMEN: Soft, bowel sounds present.+distention, + mass at RUQ/epigastric region and RLQ. No guarding, no rigidity. NEURO:Awake alert oriented, answering questions appropriately, no facial asymmetry, moves extremities EXTREMITIES: Pedal edema present, no erythema seen. Results & Data Results & Data ([facility]) Vital Signs (Past 12 Hours) Vital Signs Pulse Resp BP Pulse Ox O2 Del Method 04/03/22 14:00 89 18 111/75 98 Room Air Laboratory Results 04/03/22 04/03/22 Range/Units 09:56 09:56 WBC 17.59 H (4.8-10.8) K/ul RBC 3.04 L (3.93-5.22) M/uL Hgb 8.0 L (12.0-16.0) g/dl Hct 25.9 L (34.1-44.9) % MCV 85.2 (80.0-100.0) fL MCH 26.3 (25.0-34.0) pg MCHC 30.9 L (32.0-36.0) g/dL RDW Std Deviation 74.1 H (36.4-46.3) fL RDW Coeff of Josef 23.9 H (11.5-14.5) % Plt Count 361 (130-400) K/uL MPV 9.2 L (9.4-12.3) fL Sodium 132 L (136-145) mmol/L Potassium 3.5 (3.5-5.1) mmol/L Chloride 103 (98-107) mmol/L Carbon Dioxide 20 L (21-32) mmol/L Anion Gap 9 (3-11) BUN 6 (6-23) mg/dl Creatinine 0.76 (0.6-1.2) mg/dl Est Cr Clr Drug Dosing 58.7 ml/min Est GFR ( Amer) 100.9 ml/min Est GFR (Non-Af Amer) 87.1 ml/min BUN/Creatinine Ratio 7.9 L (10-20) Glucose 122 H (70-99(Fasting)) mg/dl Calcium 7.9 L (8.5-10.1) mg/dl Phosphorus 2.4 L (2.5-4.9) mg/dl Magnesium 1.5 L (1.7-2.4) mg/dl Medications Administered Current Inpatient Medications Aripiprazole (Aripiprazole 5 Mg Tab) 7.5 mg PO DAILY [facility] Stop: 05/01/22 08:59 Last Admin: 04/03/22 09:25 Dose: 7.5 mg Escitalopram Oxalate (Escitalopram Oxalate 20 Mg Tab) 20 mg PO DAILY [facility] Stop: 04/29/22 08:59 Last Admin: 04/03/22 09:25 Dose: 20 mg Piperacillin Sod/Tazobactam (Sod 3.375 gm/ Dextrose) 115 mls @ 28.75 mls/hr IV Q8H [facility]; Protocol Stop: 04/09/22 01:59 Last Admin: 04/03/22 18:18 Dose: 28.8 mls/hr Lactated Ringer's (Lr) 1,000 mls @ 80 mls/hr IV .[id number] [facility] Stop: 05/03/22 18:29 Last Admin: 04/03/22 20:23 Dose: 80 mls/hr Lamotrigine (Lamotrigine 100 Mg Tab) 100 mg PO DAILY [facility] Stop: 04/29/22 08:59 Last Admin: 04/03/22 09:25 Dose: 100 mg Morphine Sulfate (Morphine Sulfate 4 Mg/Ml 1 Ml Carp\Vial) 3 mg IV Q4H PRN PRN Reason: Pain Stop: 04/12/22 21:38 Last Admin: 04/03/22 20:33 Dose: 3 mg Ondansetron HCl (Ondansetron Inj 2 Mg/Ml 2 Ml Vial) 4 mg IV Q6H PRN PRN Reason: Nausea Stop: 04/28/22 21:38 Last Admin: 04/01/22 17:56 Dose: 4 mg Potassium Chloride (Potassium Chloride Crtab 20 Meq Tabcr) 20 meq PO TID [facility] Stop: 04/30/22 15:29 Last Admin: 04/01/22 21:54 Dose: 20 meq
[2022-04-03] MEDS: MAGNESIUM OXIDE 400 MG TAB PO SCH (21:48)
[2022-04-04] MEDS: PIPERACILLIN/TAZOBACTAM 3.375 GM in DEXTROSE 5% 100 ML IV SCH ×3 (01:57→18:00)
[2022-04-04 08:01] LABS: Hematocrit (blood only) 24.7 % (34.1-44.9); Hemoglobin 7.8 g/dl (12.0-16.0); Mean Corpuscular Hemoglobin 27.4 pg (25.0-34.0); Mean Corpuscular Hgb Conc 31.6 g/dL (32.0-36.0); Mean Corpuscular Volume 86.7 fL (80.0-100.0); Mean Platelet Volume 9.7 fL (9.4-12.3); Platelet Count 318 K/uL (130-400); RDW Coefficient of Variation 23.5 % (11.5-14.5); RDW Standard Deviation 74.6 fL (36.4-46.3); Red Blood Count 2.85 M/uL (3.93-5.22); White Blood Count 17.68 K/ul (4.8-10.8)
[2022-04-04 08:23] LABS: BUN Creatinine Ratio 8.5 (10-20); Calcium 7.9 mg/dl (8.5-10.1); Creatinine Clr Calc Pharmacy 62.8 ml/min; Est GFR (African American) 109.6 ml/min; Est GFR (Non-African American) 94.6 ml/min; Magnesium 1.5 mg/dl (1.7-2.4); Potassium 3.7 mmol/L (3.5-5.1)
[2022-04-04] MEDS: LACTATED RINGER'S 1,000 ML IV SCH ×2 (09:54→21:02)
[2022-04-04] MEDS: MAGNESIUM OXIDE 400 MG TAB PO SCH ×2 (12:26→20:58)
[2022-04-04] MEDS: POTASSIUM CHLORIDE CRTAB 20 MEQ TABCR PO SCH ×3 (12:26→20:58)
--- NOTE | 2022-04-04 13:51 | Gastroenterology Progress Note ---
Date of Service April 04, 2022 Assessment & Plan (1) Dysphagia: Plan: Dysphagia/mild odynophagia: ? esophagitis, gastritis vs. esophageal dysmotility. Plan Barium swallow today. Plan for EGD tomorrow. Palliative care for pain management. CT mention of intussusception - likely transient and resolved. There is no evidence of obstruction. Pain is more typical of pain from the mass and metastatic disease as it is persistent, not typical of intussusception pain which is intermittent/colicy. OK for a soft diet after the Barium swallow. NPO after midnight. Admission and Anticipated Discharge Date Admission Date: March 29, 2022 Supervising Physician Co-Signing Physician Notes 57 y/o F with history of likely newly diagnosed colon cancer with liver mets who presented initially with diffuse abdominal pain. N/V, found to have a colon mass causing colocolonic intussusception on imaging as well as liver mets. She underwent colonoscopy 04/02 with biopsy of the colon mass. GI was asked to re- evaluate for dysphagia. Patient reports ongoing dysphagia for the past 2 weeks. Reports dysphagia is to both liquids and solids and she feels the liquids are getting caught up in her upper esophagus/throat. Has to regurgitate food back out at times. She also r eports some pain with swallowing as well. Intermittent N/V. She states she has diffuse abdominal and back pain that has not changed since she was admitted. Palliative care is following for pain control. She underwent a barium swallow today that was unremarkable. Physical Exam: General: laying in bed, no acute distress Eyes: sclera anicteric Lungs: CTA bilaterally, no respiratory distress Cardiac: RRR, no murmurs Abdomen: soft, tender to palpation diffusely, no guarding/rebound, there is a hardened area in the mid-abdomen that is tender to palpation Extremities: no edema Neuro: AAOx3 Psych: appropriate affect Plan: -will perform EGD tomorrow to further assess dysphagia/odynophagia. Barium swallow was unremarkable. This may be an esophageal motility disorder causing dysphagia but will check EGD to ensure no stricture/narrowing (though i highly doubt given normal barium swallow) or any infection such as jefferson given her symptoms of odynophagia. She could also have esophagitis contributing to her symptoms. -NPO at midnight -agree with palliative for pain control -follow up pathology from colonoscopy Flory Barrera, DO Gastroenterology and Hepatology I saw and evaluated this patient on 04/04. I agree with the plan and findings as documented above by CHRISTOS Burns. Subjective We were asked by Dr. Nghia Vo to re-evaluate this pt regarding dysphagia. Pt reports foods and sometimes liquids getting stuck in the mid chest, sometimes mild pain on swallowing. Not consistent. Regurgitates about every other day, b ringing up food that she swallowed just prior. Also some nausea and vomiting of stomach contents. Has significant abdominal and back pain. Review of Systems Review of Systems: ROS: Gen: + pain, weakness, weight loss. No fevers. Eyes: No eye redness, or pain, no recent vision changes Resp: No SOB, no cough Cardio: No palpitations/irregular beats, no chest pain GI: See HPI : Denies pain on urination Skin: No jaundice, itching or new rashes Ext: no edema, no skin discoloration A total of 12 systems reviewed, all others (-). Physical Exam Constitutional: well developed, + ill appearing and cooperative Eyes: PERRL, conjunctivae normal, anicteric sclerae ENMT: external ear and nose normal, oropharynx normal Neck: trachea midline, no thyromegaly Respiratory: normal respiratory effort, lungs clear to auscultation Cardiovascular: RRR, no murmur, no edema Gastrointestinal (Abdomen): Inspection/Auscultation: + abdomen distended and normal bowel sounds; no abdominal wall ecchymosis and no abdominal edema Percussion/Palpation: + abdomen tender (right/mid upper abd firm/tender; mild tenderness elsewhere over entire abd) and + hepatomegaly Slightly firm over entire abdomen, not taunt. Musculoskeletal: no cyanosis or clubbing, extremities motor strength 5/5 Skin: no rashes, warm and dry Neurologic: PERRL, EOMI, accommodation nl, no face palsy, no dysarthria Psychiatric: A+Ox3, euthymic affect Lymphatic: no cervical or axillary lymphadenopathy Results & Data ([facility]) Vital Signs (Past 12 Hours) Vital Signs Temp Pulse Resp BP BP Pulse Ox O2 Del Method 04/04/22 10:09 Room Air 04/04/22 08:45 93 H 20 110/74 99 Room Air 04/04/22 07:25 36.6 C 84 16 90/56 L 95 Room Air Laboratory Results WBC 17, Hb 7.8, Hct 24.7, Plts 31.8, Na 129, K 3.7, Cl 101, CO2 20, BUN 6, Cr 0.7. Diagnostic Findings Colonoscopy on 04/02 w malignant appearing, partially obstructing mass in the ascending colon KUB yesterday: 1. No evidence for bowel obstruction at this time. 2. Persistent hepatomegaly. CTAP w IV 03/29: 1. There is an approximately 5 cm mass lesion of the ascending colon. A colonic neoplasm is the diagnosis of exclusion. 2. The liver is enlarged and diffusely infiltrated by hepatic metastatic disease. 3. Multifocal pulmonary metastatic disease is seen at the lung bases. 4. Metastatic lymphadenopathy is seen in the upper abdomen. 5. The colonic mass causes colocolonic intussusception. No obstruction is seen. 6. Small volume of abdominopelvic ascites. 7. The kidneys enhance heterogeneously. Correlate with clinical findings and urinalysis.
--- NOTE | 2022-04-04 14:11 | Psychiatric Consultation ---
Date of Consultation April 04, 2022 Impression / Recommendations Impression Padmini is a 57 yo woman with a history of depression admitted medically with new diagnosis of suspected metastatic colon cancer. She feels her mood is stable on her current medications and wants to continue these. Agrees for us to send and receive records from her psychiatrist in [place] so that they will be updated regarding her new cancer diagnosis. Appreciate resources and counseling regarding impacts of this new diagnosis on mood that palliative care provider discussed. We will provide her with information on additional local psychiatric and mental health resources should she decide to set up local providers in addition to her psychiatrist in [place]. From a legal competency standpoint this a determination that the courts make and not something that psychiatrists can do. We can assess decision making capacity but at this time she feels comfortable with the decisions she is making for treatment and these seem appropriate and in-line with her desired goals and recommendations of various specialists involved. (1) Depression: (2) Liver masses: (3) Colonic mass: (4) Dysphagia: Plan -Psych liason to provide information on local mental health resources -Agree with additional support resources per palliative care team -Would continue her psychiatric medications of lamictal 100mg qd, escitalopram 20mg qd and abilify 7.5mg qd. If at some point she develops significant enough nausea that she is not able to continue with consistent use of lamictal then this would need to be re-titrated if more than 3 days of missed doses as this increases the risk of Cheung-Stu syndrome. -Will send this consult note to her psychiatrist in [place] for coordination of care Psych History Identifying Data 57 yo woman who splits her time between [place] and [facility] with history of depression admitted medically for abdominal pain and mass now with concern for new diagnosis of colon cancer with metastases. Psychiatry was consulted for recommendations regarding her depression and question of legal competency. Chief Complaint "I'm doing alright, just dealing with a lot of pain in my back and side". History of Present Illness Padmini reports a long history of depression but that through working with her trusted psychiatrist in [place] they have found a series of medications (Abilify, Lamictal, Lexapro) that have been working very well in managing her mood symptoms. Recently she has noticed more symptoms of physical illness particularly abdominal fullness, nausea, weight loss and pain which had led her psychiatrist noticed that physically something seemed off and they were in the process of ordering blood work for her to her coming to [place] for Thanksgiving. Though she's had some nausea she has kept down all her doses of lamictal and has not missed any recent doses. Since arriving to [place] her symptoms worsened and after medical work-up it is determined that she likely has colon cancer. She feels she is coping with this well given her supports and is ready to "fight" and do whatever it takes the treatment. She has met with one of the oncologist and plans to remain in [place] where she is supp orted by her family for her cancer treatment when she is discharged from the hospital. We discussed options regarding local psychiatric services and at this time she is unsure if she will plan to try to meet with her psychiatric provider in [place] via telemedicine or if she may choose to establish with someone locally. She is in agreement with us requesting records from her psychiatric provider in [place] and sending my note once she is discharged from the hospital so that they are updated on what has been going on. She denies any other questions or concerns at this time. Allergies Allergy/AdvReac Type Severity Reaction Status Date / Time No Known Allergies Allergy Verified 04/02/22 08:22 Home Medications Medication Instructions Recorded Confirmed Type aripiprazole 5 mg tablet 5 mg PO DAILY 03/29/22 03/29/22 History escitalopram oxalate 20 mg tablet 20 mg PO DAILY 03/29/22 03/29/22 History lamotrigine 100 mg tablet 100 mg PO DAILY 03/29/22 03/29/22 History Personal History Beliefs That Will Affect Care: None Patient History Medical History Encounter for pre-operative examination Social History Smoking Status: Former smoker Second Hand Exposure: No; Hx Alcohol Use: Yes Alcohol type: wine Hx Substance Use: No Preferred Language: Burkinan Communication Ability: Effective New Business Clerk Required: No Beliefs That Will Affect Care: Amish Current Living Situation: Alone Feels Safe at Home: Yes and No Is there a partner from a previous relationship who is making you feel unsafe now?: No Assistive Devices: None Physical Exam Psychiatric: Orientation: alert and oriented x 3 Apperance: appropriately dressed and appropriately groomed Eye Contact: good eye contact Motor Behavior: no abnormal motor movements Speech: normal rate/rhythm/volume of speech Affect: + anxious affect Mood: + anxious mood; no depressed mood Thought Process: linear/logical thought process Thought Content: reality based without delusions Suicidal Thoughts: denies suicidal thoughts Homicidal Thoughts: denies homicidal thoughts Hallucinations: no auditory hallucinations and no visual hallucinations Cognition: recent memory grossly intact, remote memory grossly intact, attention grossly intact and language grossly intact Estimated Intelligence: consistent with education level Insight: good insight Judgement: + fair judgement Vital Signs (Past 24 Hours): Last Vital Signs Temp 36.6 C 04/04/22 07:25 Pulse 93 H 04/04/22 08:45 Resp 20 04/04/22 08:45 BP 110/74 04/04/22 08:45 Pulse Ox 99 04/04/22 08:45 O2 Del Method 04/04/22 10:09 Review of Systems All systems reviewed & are unremarkable except as noted in HPI & below (side pain, back pain, abdominal fullness) Results & Data ([facility]) Medications Administered Aripiprazole (Aripiprazole 5 Mg Tab) 7.5 mg PO DAILY [facility] Stop: 05/01/22 08:59 Last Admin: 04/03/22 09:25 Dose: 7.5 mg Documented By: Admin: 04/02/22 11:09 Dose: 7.5 mg Documented By: Admin: 04/01/22 09:54 Dose: 7.5 mg Documented By: GEORGES Escitalopram Oxalate (Escitalopram Oxalate 20 Mg Tab) 20 mg PO DAILY [facility] Stop: 04/29/22 08:59 Last Admin: 04/03/22 09:25 Dose: 20 mg Documented By: Admin: 04/02/22 11:09 Dose: 20 mg Documented By: Admin: 04/01/22 08:52 Dose: 20 mg Documented By: Admin: 03/31/22 09:26 Dose: 20 mg Documented By: Admin: 03/30/22 08:13 Dose: 20 mg Documented By: MILE Piperacillin Sod/Tazobactam (Sod 3.375 gm/ Dextrose) 115 mls @ 28.75 mls/hr IV Q8H [facility]; Protocol Stop: 04/09/22 01:59 Last Admin: 04/04/22 09:54 Dose: 28 mls/hr Documented By: Infusion: 04/04/22 06:05 Dose: 0 mls/hr Documented By: Admin: 04/04/22 01:57 Dose: 28 mls/hr Documented By: Infusion: 04/03/22 22:20 Dose: 0 mls/hr Documented By: Admin: 04/03/22 18:18 Dose: 28.8 mls/hr Documented By: Infusion: 04/03/22 13:48 Dose: 0 mls/hr Documented By: Admin: 04/03/22 09:34 Dose: 28.8 mls/hr Documented By: Infusion: 04/03/22 06:09 Dose: 0 mls/hr Documented By: Admin: 04/03/22 02:08 Dose: 28.8 mls/hr Documented By: Infusion: 04/02/22 21:43 Dose: 0 mls/hr Documented By: Admin: 04/02/22 17:39 Dose: 28.8 mls/hr Documented By: Infusion: 04/02/22 15:30 Dose: 0 mls/hr Documented By: Admin: 04/02/22 11:03 Dose: 28.8 mls/hr Documented By: Infusion: 04/02/22 05:52 Dose: 0 mls/hr Documented By: Admin: 04/02/22 02:19 Dose: 28.8 mls/hr Documented By: Infusion: 04/01/22 21:55 Dose: 0 mls/hr Documented By: Admin: 04/01/22 17:35 Dose: 28.8 mls/hr Documented By: Infusion: 04/01/22 13:58 Dose: 0 mls/hr Documented By: Admin: 04/01/22 09:56 Dose: 28.8 mls/hr Documented By: Infusion: 04/01/22 06:01 Dose: 0 mls/hr Documented By: Admin: 04/01/22 02:00 Dose: 28.8 mls/hr Documented By: Infusion: 03/31/22 21:25 Dose: 0 mls/hr Documented By: Admin: 03/31/22 17:56 Dose: 28.8 mls/hr Documented By: Infusion: 03/31/22 14:58 Dose: 0 mls/hr Documented By: Admin: 03/31/22 10:34 Dose: 28.8 mls/hr Documented By: Infusion: 03/31/22 05:56 Dose: 0 mls/hr Documented By: Admin: 03/31/22 01:45 Dose: 28.8 mls/hr Documented By: Infusion: 03/30/22 21:45 Dose: 0 mls/hr Documented By: Admin: 03/30/22 18:23 Dose: 28.8 mls/hr Documented By: Infusion: 03/30/22 15:18 Dose: 28.8 mls/hr Documented By: Infusion: 03/30/22 12:36 Dose: 28.8 mls/hr Documented By: Admin: 03/30/22 11:18 Dose: 28.8 mls/hr Documented By: Infusion: 03/30/22 06:09 Dose: 0 mls/hr Documented By: Admin: 03/30/22 01:36 Dose: 28.8 mls/hr Documented By: ITZEL Lactated Ringer's (Lr) 1,000 mls @ 80 mls/hr IV .[id number] [facility] Stop: 05/03/22 18:29 Last Admin: 04/04/22 09:54 Dose: 80 mls/hr Documented By: Infusion: 04/04/22 08:53 Dose: 80 mls/hr Documented By: Admin: 04/03/22 20:23 Dose: 80 mls/hr Documented By: NATHANAEL Lamotrigine (Lamotrigine 100 Mg Tab) 100 mg PO DAILY [facility] Stop: 04/29/22 08:59 Last Admin: 04/03/22 09:25 Dose: 100 mg Documented By: Admin: 04/02/22 11:09 Dose: 100 mg Documented By: Admin: 04/01/22 08:51 Dose: 100 mg Documented By: Admin: 03/31/22 09:25 Dose: 100 mg Documented By: Admin: 03/30/22 08:14 Dose: 100 mg Documented By: MILE Magnesium Oxide (Magnesium Oxide 400 Mg Tab) 400 mg PO BID [facility] Stop: 05/03/22 21:29 Last Admin: 04/04/22 12:26 Dose: Not Given Documented By: Admin: 04/03/22 21:48 Dose: 400 mg Documented By: NATHANAEL Morphine Sulfate (Morphine Sulfate 4 Mg/Ml 1 Ml Carp\\Vial) 3 mg IV Q4H PRN PRN Reason: Pain Stop: 04/12/22 21:38 Last Admin: 04/03/22 20:33 Dose: 3 mg Documented By: Admin: 04/03/22 14:44 Dose: 3 mg Documented By: Admin: 04/03/22 09:28 Dose: 3 mg Documented By: Admin: 04/02/22 18:51 Dose: 3 mg Documented By: Admin: 04/02/22 11:03 Dose: 3 mg Documented By: Admin: 04/01/22 22:12 Dose: 3 mg Documented By: Admin: 04/01/22 18:20 Dose: 3 mg Documented By: Admin: 04/01/22 13:19 Dose: 3 mg Documented By: Admin: 04/01/22 08:41 Dose: 3 mg Documented By: Admin: 03/31/22 21:52 Dose: 3 mg Documented By: Admin: 03/31/22 07:56 Dose: 3 mg Documented By: Admin: 03/30/22 08:09 Dose: 3 mg Documented By: Admin: 03/29/22 22:26 Dose: 3 mg Documented By: ITZEL Ondansetron HCl (Ondansetron Inj 2 Mg/Ml 2 Ml Vial) 4 mg IV Q6H PRN PRN Reason: Nausea Stop: 04/28/22 21:38 Last Admin: 04/01/22 17:56 Dose: 4 mg Documented By: GEORGES Potassium Chloride (Potassium Chloride Crtab 20 Meq Tabcr) 20 meq PO TID [facility] Stop: 04/30/22 15:29 Last Admin: 04/04/22 12:26 Dose: Not Given Documented By: Admin: 04/01/22 21:54 Dose: 20 meq Documented By: Admin: 04/01/22 13:59 Dose: 20 meq Documented By: Admin: 04/01/22 08:51 Dose: 20 meq Documented By: Admin: 03/31/22 21:46 Dose: 20 meq Documented By: Admin: 03/31/22 15:56 Dose: 20 meq Documented By: GEORGES Coding Level of Care Code 90463 Inpt Consult Level 3 Diagnoses Depression F32.A Liver masses R16.0 Colonic mass K63.89 Dysphagia R13.10
--- NOTE | 2022-04-04 14:33 | Fluoroscopy Report ---
FL barium swallow CLINICAL HISTORY: globus sensation; new diagnosis of cancer COMPARISON STUDY: Chest CT 03/30/2022. Fluoroscopy time: 1.6 minutes. 19 fluoroscopic spot images and a cine loop were submitted. FINDINGS: The patient swallowed barium without difficulty. The contours of the hypopharynx are within normal limits. The esophagus is normal in course, caliber, and motility. No hiatus hernia. No gastro esophageal reflux demonstrated during the examination. A barium tablet passed without difficulty. IMPRESSION: Normal barium swallow. ACT 112: Negative or not required by law. Electronically signed by: Alexei Adamson M.D. 04/04/2022 2:31 PM
[2022-04-04] MEDS: ESCITALOPRAM OXALATE 20 MG TAB PO SCH (14:48)
[2022-04-04] MEDS: ARIPiprazole 5 MG TAB PO SCH (14:49)
[2022-04-04] MEDS: lamoTRIgine 100 MG TAB PO SCH (14:49)
[2022-04-04] MEDS: MoRPHine SULFATE 4 MG/ML 1 ML CARP\\VIAL IV PRN ×2 (14:49→21:10)
[2022-04-05] MEDS: PIPERACILLIN/TAZOBACTAM 3.375 GM in DEXTROSE 5% 100 ML IV SCH ×2 (02:16→12:51)
[2022-04-05] MEDS: LACTATED RINGER'S 1,000 ML IV SCH (09:44)
[2022-04-05] MEDS: MoRPHine SULFATE 4 MG/ML 1 ML CARP\\VIAL IV PRN ×3 (09:51→21:40)
[2022-04-05] MEDS ORDERED: LIDOCAINE 2% MPF LOCAL 5 ML VIAL INFIL ONE (11:09)
[2022-04-05] MEDS ORDERED: PROPOFOL IV EMULSION 10 MG/ML 20 ML VIAL IV ONE (11:09)
--- NOTE | 2022-04-05 11:16 | History & Physical Bridge Note ---
Date of Service April 05, 2022 History & Physical Bridge Note Planning for inpatient EGD today for ongoing dysphagia.
--- NOTE | 2022-04-05 11:40 | GI REPORT ---
Patient Name: Padmini Graham Procedure Date: 04/05/2022 10:50 AM Date of : 1965 Admit Type: Inpatient Age: 57 Gender: Female Attending MD: Flory Barrera DO, Procedure: Upper GI endoscopy Providers: Flory Barrera DO Referring MD: Nghia Vo Md Indications: Dysphagia Patient Profile: This is a 57 year old female. Refer to note in patient chart for documentation of history and physical. Medicines: Monitored Anesthesia Care Complications: No immediate complications. Estimated Blood Loss: Estimated blood loss: none. Procedure: Pre-Anesthesia Assessment: - Prior to the procedure, a History and Physical was performed, and patient medications and allergies were reviewed. The risks and benefits of the procedure and the sedation options and risks were discussed with the patient. All questions were answered and informed consent was obtained. Patient identification and proposed procedure were verified by the physician, the nurse and the blower mechanic in the procedure room. Mental Status Examination: alert and oriented. Airway Examination: Mallampati Class II (the uvula but not tonsillar pillars visualized). Respiratory Examination: clear to auscultation. CV Examination: normal. Prophylactic Antibiotics: The patient does not require prophylactic antibiotics. Prior Anticoagulants: The patient has taken no anticoagulant or antiplatelet agents. ASA Grade Assessment: III - A patient with severe systemic disease. After reviewing the risks and benefits, the patient was deemed in satisfactory condition to undergo the procedure. The anesthesia plan was to use monitored anesthesia care (MAC). Immediately prior to administration of medications, the patient was re-assessed for adequacy to receive sedatives. The physical status of the patient was re-assessed after the procedure. After obtaining informed consent, the endoscope was passed under direct vision. Throughout the procedure, the patient's blood pressure, pulse, and oxygen saturations were monitored continuously. The Scope was introduced through the mouth, and advanced to the second part of duodenum. The upper GI endoscopy was accomplished without difficulty. The patient tolerated the procedure well. Findings: The Z-line was regular and was found 38 cm from the incisors. LA Grade D (one or more mucosal breaks involving at least 75% of esophageal circumference) esophagitis with no bleeding was found. Few cratered esophageal ulcers with no stigmata of recent bleeding were found. A medium-sized hiatal hernia was present. The entire examined stomach was normal. The duodenal bulb and second portion of the duodenum were normal. Impression: - Z-line regular, 38 cm from the incisors. - LA Grade D esophagitis with no bleeding. - Esophageal ulcers with no stigmata of recent bleeding. - Medium-sized hiatal hernia. - Normal stomach. - Normal duodenal bulb and second portion of the duodenum. - No specimens collected. Recommendation: - Return patient to [facility] for ongoing care. - Resume previous diet. - Continue present medications. - Dysphagia likely related to severe esophagitis seen on exam. Start a PPI 40 mg BID taken 30-60 minutes prior to a meal for the next 12 weeks then 40 mg PO daily thereafter. - Typically would recommend a repeat EGD in 8-12 weeks to assess healing however given metastatic colon cancer would recommend discussion of benefit repeating endoscopy given new cancer diagnosis Flory aBrrera DO 04/05/2022 11:40:12 AM Note Initiated On: 04/05/2022 10:50 AM Number of Addenda: 0 I attest to the content of the Intraoperative Record and orders documented therein, exceptions below {[id number]}
[2022-04-05] MEDS: POLYETHYLENE (MIRALAX) 17 GM PACK PO SCH (12:48)
[2022-04-05] MEDS: ESCITALOPRAM OXALATE 20 MG TAB PO SCH (12:48)
[2022-04-05] MEDS: ARIPiprazole 5 MG TAB PO SCH (12:48)
[2022-04-05] MEDS: MAGNESIUM OXIDE 400 MG TAB PO SCH ×2 (12:49→21:27)
[2022-04-05] MEDS: POTASSIUM CHLORIDE CRTAB 20 MEQ TABCR PO SCH ×3 (12:50→21:28)
[2022-04-05] MEDS: lamoTRIgine 100 MG TAB PO SCH (12:50)
--- NOTE | 2022-04-05 13:00 | Anesthesiology Progress Note ---
Date of Service April 05, 2022 Anesthesia Post Procedure Vital Signs Vital Signs: Temp Pulse Resp BP Pulse Ox O2 Del Method 04/05/22 12:02 82 16 110/69 97 Room Air 04/05/22 11:47 81 16 107/70 97 Room Air 04/05/22 11:32 78 15 89/56 L 95 Room Air 04/05/22 10:17 36.7 C 94 H 16 115/67 98 Room Air 04/05/22 07:43 36.8 C 89 18 105/71 96 Room Air 04/04/22 22:12 36.7 C 89 18 92/58 L 96 Room Air 04/04/22 15:45 36.7 C 90 16 98/63 L 98 Room Air Pain Intensity Left Upper Abdomen: Pain Intensity: 4 Abdomen: Pain Intensity: 2 Transfer of Care Handoff Completed per policy Notes Mental Status: alert / awake / arousable and participated in evaluation Patient Amnestic to Procedure: Yes Nausea / Vomiting: adequately controlled Pain: adequately controlled Airway Patency, RR, SpO2: stable & adequate BP & HR: stable & adequate Hydration State: stable & adequate Anesthetic Complications: no major complications apparent and Pt Satisfied with anesthetic care
--- NOTE | 2022-04-05 13:46 | History & Physical Bridge Note ---
Date of Service April 05, 2022 History & Physical Bridge Note pathology from colon mass has resulted consistent with a well-differentiated adenocarcinoma. FINAL DIAGNOSIS Colon, ascending, mass, biopsy: - Well differentiated adenocarcinoma. - See comment. Comment: The tumor is microsatellite stable by immunohistochemistry (see microscopic description). This case was discussed with Dr. Meyer prior to sign out and the patient is noted to have metastatic disease. The specimen will be sent for a [employer] Colorectal Tumor Profile. Those results will be documented in a separate [facility] report.
--- NOTE | 2022-04-05 13:48 | Communication Note ---
Date of Service: April 05, 2022 pathology from colon mass reviewed: FINAL DIAGNOSIS Colon, ascending, mass, biopsy: - Well differentiated adenocarcinoma. - See comment. Comment: The tumor is microsatellite stable by immunohistochemistry (see microscopic description). This case was discussed with Dr. Meyer prior to sign out and the patient is noted to have metastatic disease. The specimen will be sent for a [employer] Colorectal Tumor Profile. Those results will be documented in a separate [employer] report. Flory Barrera, Gastroenterology and Hepatology
--- NOTE | 2022-04-05 14:48 | Hospitalist Progress Note ---
Date of Service April 04, 2022 Assessment & Plan (1) Colonic mass: (2) Liver masses: (3) Elevated LFTs: Plan 57-year-old female who presents with 2 months of abdominal pain, ongoing nausea, vomiting, weight loss. She was found to have colon mass with metastases to liver and lungs. 1. Abdominal pain, nausea, vomiting, elevated LFTs. Colon mass. Liver metastases. CT abdomen and pelvis with IV contrast showing 5 cm ascending colon mass with diffuse hepatic metastatic disease and also pulmonary metastatic disease. Colonic neoplasm is diagnosis of exclusion, by CAT scan report. Admitting provider discussed with GI that her LFTs looks like obstructive pattern. GI recommended for liver ultrasound and also IV antibiotics and plan for colonoscopy. IV fluids, IV morphine p.r.n., IV antiemetics p.r.n. GI consulted - Tumor markers ordered Pt underwent colonoscopy (04/02) Findings: Hemorrhoids were found on perianal exam. A polypoid partially obstructing large mass was found in the ascending colon. The mass was partially circumferential (involving one-third of the lumen circumference). No bleeding was present. Mucosa was biopsied with a cold forceps for histology. Verification of patient identification for the specimen was done by the physician and nurse using the patient's name and date. The pathology specimen was placed into Bottle A. Area was tattooed with an injection of 1 mL of Elli ink. Two sessile polyps were found in the ascending colon. A few small-mouthed diverticula were found in the sigmoid colon. Impression: - Preparation of the colon was fair. - Hemorrhoids found on perianal exam. - Malignant partially obstructing tumor in the ascending colon. This was found just proximal to the IC valve at 70 cm. Biopsied. Tattooed. - Two polyps in the ascending colon. - Diverticulosis in the sigmoid colon. Recommendation: - Return patient to [facility] for ongoing care. - Resume previous diet. - Continue present medications. - Await pathology results. - Further recommendations per oncology going forward after pathology reviewed Surgery - no plan for surg. intervention at this time Oncology - CTA chest, IV venofer x2, follow up as outpt. w/ Dr. Meyer (who sees pt's father as well) - plan for oncology appointment on Saturday CTA chest obtained - no PE Venofer x2 given 04/03 KUB- reviewed Discussed with the patient and her sister at the bedside. Patient is not feeling well today, and they would like if oncology can see them while in the hospital. Dr. Meyer contacted. They would also like to see Palliative medicine, and they were consulted. Speech eval also ordered and GI contacted and given patient's difficulty swallowing/discomfort with swallowing. 04/[address] Meyer (oncology) last evening at the bedside. Seen by palliative medicine today, appreciate their input Plan for Speech eval today and EGD tomorrow. 2. Anemia, probably secondary to above ongoing illness. Will get Hemoccult, iron studies, vitamin B12, folate levels. FOBT negative Hem/Onc following - recommend IV venofer x2 - given Hgb stable 3. Leukocytosis. On IV Zosyn. We will follow the cultures. Follow the repeat labs. Discussed with GI, recommend to continue antibiotics. 4. Hyponatremia. Sodium 128 on admission, possibly from nausea and vomiting. Received fluids. Na mildly improved ~130, stable 5. Acute kidney injury: - Resolved Creatinine 1.34 on admission Now 0.7 . Creatinine was 0.7 in Epic labs in April 2018. Received fluids. Monitor BMP 6. Mild elevation of troponin, mostly demand ischemia, the patient is asymptomatic. EKG is okay. repeated troponins - trended down 7. Depression: Continue her home medications. DVT prophylaxis: SCDs (underwent colonoscopy w/ biopsy, plan for EGD tmrw) DISPOSITION: medical floor Admission and Anticipated Discharge Date Admission Date: March 29, 2022 Subjective Patient seen in follow-up of nausea vomiting, new finding of colon mass, with metastases to liver, lungs Patient underwent colonoscopy with biopsy Patient was not feeling well yesterday, and therefore discussed with the familly further involvement of oncology, GI, palliative medicine while inpatient. Currently pt is laying in bed, in no acute distress No fevers, chills, chest pain, shortness of breath. Abdomen less uncomfortable today. Speech eval today and plan for EGD tmrw. Review of Systems Review of Systems: All systems reviewed & are unremarkable except as noted in Subjective Physical Exam Physical Exam: GENERAL: The patient is of moderate build, not in acute distress. HEENT: Pupils equal, round and reactive to light. EOMI. Oral mucosa moist. NECK: No JVD, no neck masses. CARDIOVASCULAR: S1 and S2 heard. Regular rate and rhythm. No murmur, no gallop. RESPIRATORY: Normal AP diameter. No accessory muscle use. No wheezing, no crackles. ABDOMEN: Soft, bowel sounds present.+distention, + mass at RUQ/epigastric region and RLQ. No guarding, no rigidity. NEURO:Awake alert oriented, answering questions appropriately, no facial asymmetry, moves extremities EXTREMITIES: Pedal edema present, no erythema seen. Results & Data Results & Data ([facility]) Vital Signs (Past 12 Hours)
--- NOTE | 2022-04-05 14:50 | Hospitalist Progress Note ---
Date of Service April 05, 2022 Assessment & Plan (1) Colonic mass: (2) Liver masses: (3) Elevated LFTs: Plan 57-year-old female who presents with 2 months of abdominal pain, ongoing nausea, vomiting, weight loss. She was found to have colon mass with metastases to liver and lungs. 1. Abdominal pain, nausea, vomiting, elevated LFTs. Colon mass. Liver metastases. CT abdomen and pelvis with IV contrast showing 5 cm ascending colon mass with diffuse hepatic metastatic disease and also pulmonary metastatic disease. Colonic neoplasm is diagnosis of exclusion, by CAT scan report. Admitting provider discussed with GI that her LFTs looks like obstructive pattern. GI recommended for liver ultrasound and also IV antibiotics and plan for colonoscopy. IV fluids, IV morphine p.r.n., IV antiemetics p.r.n. GI consulted - Tumor markers ordered Pt underwent colonoscopy (04/02) Findings: Hemorrhoids were found on perianal exam. A polypoid partially obstructing large mass was found in the ascending colon. The mass was partially circumferential (involving one-third of the lumen circumference). No bleeding was present. Mucosa was biopsied with a cold forceps for histology. Verification of patient identification for the specimen was done by the physician and nurse using the patient's name and date. The pathology specimen was placed into Bottle A. Area was tattooed with an injection of 1 mL of Elli ink. Two sessile polyps were found in the ascending colon. A few small-mouthed diverticula were found in the sigmoid colon. Impression: - Preparation of the colon was fair. - Hemorrhoids found on perianal exam. - Malignant partially obstructing tumor in the ascending colon. This was found just proximal to the IC valve at 70 cm. Biopsied. Tattooed. - Two polyps in the ascending colon. - Diverticulosis in the sigmoid colon. Recommendation: - Return patient to [facility] for ongoing care. - Resume previous diet. - Continue present medications. - Await pathology results. - Further recommendations per oncology going forward after pathology reviewed Surgery - no plan for surg. intervention at this time Oncology - CTA chest, IV venofer x2, follow up as outpt. w/ Dr. Meyer (who sees pt's father as well) CTA chest obtained - no PE Venofer x2 given 04/03 KUB- reviewed Discussed with the patient and her sister at the bedside. Patient is not feeling well today, and they would like if oncology can see them while in the hospital. Dr. Meyer contacted. They would also like to see Palliative medicine, and they were consulted. Speech eval also ordered and GI contacted and given patient's difficulty swallowing/discomfort with swallowing. 04/[address] Meyer (oncology) last evening at the bedside. Seen by palliative medicine today, appreciate their input 04/05 EGD Findings: The Z-line was regular and was found 38 cm from the incisors. LA Grade D (one or more mucosal breaks involving at least 75% of esophageal circumference) esophagitis with no bleeding was found. Few cratered esophageal ulcers with no stigmata of recent bleeding were found. A medium-sized hiatal hernia was present. The entire examined stomach was normal. The duodenal bulb and second portion of the duodenum were normal. Impression: - Z-line regular, 38 cm from the incisors. - LA Grade D esophagitis with no bleeding. - Esophageal ulcers with no stigmata of recent bleeding. - Medium-sized hiatal hernia. - Normal stomach. - Normal duodenal bulb and second portion of the duodenum. - No specimens collected. Recommendation: - Return patient to [facility] for ongoing care. - Resume previous diet. - Continue present medications. - Dysphagia likely related to severe esophagitis seen on exam. Start a PPI 40 mg BID taken 30-60 minutes prior to a meal for the next 12 weeks then 40 mg PO daily thereafter. - Typically would recommend a repeat EGD in 8-12 weeks to assess healing however given metastatic colon cancer would recommend discussion of benefit repeating endoscopy given new cancer diagnosis 04/05 - PPI started for esophagitis - as above - patient becoming more edematous, abdomen is more distended. IV fluids stopped. Plan for possible port placement while in the hospital. Pt's sister updated at the bedside. 2. Anemia, probably secondary to above ongoing illness. Will get Hemoccult, iron studies, vitamin B12, folate levels. FOBT negative Hem/Onc following - recommend IV venofer x2 - given Hgb stable 3. Leukocytosis. On IV Zosyn. We will follow the cultures. Follow the repeat labs. Discussed with GI, recommend to continue antibiotics. 4. Hyponatremia. Sodium 128 on admission, possibly from nausea and vomiting. Received fluids. Na mildly improved ~130, stable 5. Acute kidney injury: - Resolved Creatinine 1.34 on admission Now 0.7 . Creatinine was 0.7 in Epic labs in April 2018. Received fluids. Monitor BMP 6. Mild elevation of troponin, mostly demand ischemia, the patient is asymptomatic. EKG is okay. repeated troponins - trended down 7. Depression: Continue her home medications. DVT prophylaxis:heparin subq DISPOSITION: medical floor Admission and Anticipated Discharge Date Admission Date: March 29, 2022 Subjective Patient seen in follow-up of nausea vomiting, new finding of colon mass, with metastases to liver, lungs Patient underwent colonoscopy with biopsy and today she underwent EGD Currently pt is laying in bed, in no acute distress, however she is more drowsy, and has more abdominal discomfort and distention No fevers, chills, chest pain, shortness of breath. Pathology results back Sister updated at the bedside Will try to have port placed while in the hospital Review of Systems Review of Systems: All systems reviewed & are unremarkable except as noted in Subjective Physical Exam Physical Exam: GENERAL: The patient is of moderate build, not in acute distress. HEENT: Pupils equal, round and reactive to light. EOMI. Oral mucosa moist. NECK: No JVD, no neck masses. CARDIOVASCULAR: S1 and S2 heard. Regular rate and rhythm. No murmur, no gallop. RESPIRATORY: Normal AP diameter. No accessory muscle use. No wheezing, no crackles. ABDOMEN: Soft, bowel sounds present.+distention, + mass at RUQ/epigastric region and RLQ. No guarding, no rigidity. NEURO:Awake alert oriented, answering questions appropriately, no facial asymmetry, moves extremities EXTREMITIES: Pedal edema present, no erythema seen. Results & Data Results & Data ([facility]) Vital Signs (Past 12 Hours) Vital Signs Temp Pulse Resp BP Pulse Ox O2 Del Method 04/05/22 12:02 82 16 110/69 97 Room Air 04/05/22 11:47 81 16 107/70 97 Room Air 04/05/22 11:32 78 15 89/56 L 95 Room Air 04/05/22 10:17 36.7 C 94 H 16 115/67 98 Room Air 04/05/22 07:43 36.8 C 89 18 105/71 96 Room Air Medications Administered Current Inpatient Medications Aripiprazole (Aripiprazole 5 Mg Tab) 7.5 mg PO DAILY LATESHA Stop: 05/01/22 08:59 Last Admin: 04/05/22 12:48 Dose: 7.5 mg Escitalopram Oxalate (Escitalopram Oxalate 20 Mg Tab) 20 mg PO DAILY [facility] Stop: 04/29/22 08:59 Last Admin: 04/05/22 12:48 Dose: 20 mg Heparin Sodium (Porcine) (Heparin Sod 5,000 Unit/0.5 Ml Vial) 5,000 units SQ Q1 2 LATESHA Stop: 05/05/22 20:59 Piperacillin Sod/Tazobactam (Sod 3.375 gm/ Dextrose) 115 mls @ 28.75 mls/hr IV Q8H [facility]; Protocol Stop: 04/09/22 01:59 Last Admin: 04/05/22 12:51 Dose: 28.8 mls/hr Lactated Ringer's (Lr) 1,000 mls @ 80 mls/hr IV .[id number] [facility] Stop: 05/03/22 18:29 Last Admin: 04/05/22 09:44 Dose: 80 mls/hr Lamotrigine (Lamotrigine 100 Mg Tab) 100 mg PO DAILY LATESHA Stop: 04/29/22 08:59 Last Admin: 04/05/22 12:50 Dose: 100 mg Lidocaine (Lidocaine 5% 1 Patch) 1 patch TD QAM [facility] Stop: 05/05/22 14:29 Magnesium Oxide (Magnesium Oxide 400 Mg Tab) 400 mg PO BID [facility] Stop: 05/03/22 21:29 Last Admin: 04/05/22 12:49 Dose: 400 mg Miscellaneous (Remove Lidoderm Patch) 1 each N/A DAILY@2100 [facility] Stop: 05/05/22 20:59 Morphine Sulfate (Morphine Sulfate 4 Mg/Ml 1 Ml Carp\Vial) 3 mg IV Q2H PRN PRN Reason: Pain Stop: 04/12/22 21:38 Last Admin: 04/05/22 09:51 Dose: 3 mg Ondansetron HCl (Ondansetron Inj 2 Mg/Ml 2 Ml Vial) 4 mg IV Q6H PRN PRN Reason: Nausea Stop: 04/28/22 21:38 Last Admin: 04/01/22 17:56 Dose: 4 mg Pantoprazole Sodium (Pantoprazole 40 Mg Tab) 40 mg PO BID [facility] Stop: 05/05/22 20:59 Polyethylene Glycol (Polyethylene (Miralax) 17 Gm Pack) 17 gm PO DAILY LATESHA Stop: 05/05/22 08:59 Last Admin: 04/05/22 12:48 Dose: 17 gm Potassium Chloride (Potassium Chloride Crtab 20 Meq Tabcr) 20 meq PO TID LATESHA Stop: 04/30/22 15:29 Last Admin: 04/05/22 12:50 Dose: 20 meq Simethicone (Simethicone 80 Mg Chew) 80 mg PO Q6H PRN PRN Reason: bloating, doiscomfort Stop: 05/05/22 14:23
[2022-04-05] MEDS ORDERED: Nursing to Pharmacy Communication SCH (16:00)
[2022-04-05] MEDS: LIDOCAINE 5% 1 PATCH TD SCH (17:52)
[2022-04-05] MEDS ORDERED: FUROSEMIDE 20 MG TAB PO STA (20:47)
[2022-04-05] MEDS ORDERED: POTASSIUM CHLORIDE CRTAB 20 MEQ TABCR PO STA (20:48)
[2022-04-05] MEDS: PANTOprazole 40 MG TAB PO SCH (21:27)
[2022-04-05] MEDS: HEPARIN SOD 5,000 UNIT/0.5 ML VIAL SQ SCH (21:29)
[2022-04-06] MEDS: PIPERACILLIN/TAZOBACTAM 3.375 GM in DEXTROSE 5% 100 ML IV SCH ×4 (00:16→23:25)
[2022-04-06 08:46] LABS: Hematocrit (blood only) 26.9 % (34.1-44.9); Hemoglobin 8.4 g/dl (12.0-16.0); Mean Corpuscular Hemoglobin 26.8 pg (25.0-34.0); Mean Corpuscular Hgb Conc 31.2 g/dL (32.0-36.0); Mean Corpuscular Volume 85.9 fL (80.0-100.0); Mean Platelet Volume 9.8 fL (9.4-12.3); Platelet Count 407 K/uL (130-400); RDW Coefficient of Variation 23.3 % (11.5-14.5); RDW Standard Deviation 72.5 fL (36.4-46.3); Red Blood Count 3.13 M/uL (3.93-5.22); White Blood Count 18.18 K/ul (4.8-10.8)
[2022-04-06 08:52] LABS: INR 1.4 (0.9-1.1); Prothrombin Time 14.8 Seconds (9.0-12.0)
[2022-04-06 09:19] LABS: Albumin Globulin Ratio 0.6 (0.9-2); Albumin Level 2.1 gm/dl (3.4-5.0); BUN Creatinine Ratio 12.5 (10-20); Bilirubin,Total 7.9 mg/dl (0.2-1.0); Calcium 8.3 mg/dl (8.5-10.1); Creatinine Clr Calc Pharmacy 55.7 ml/min; Est GFR (African American) 94.9 ml/min; Est GFR (Non-African American) 81.8 ml/min; Globulin 3.4 gm/dl (2.5-4.0); Potassium 4.9 mmol/L (3.5-5.1); Total Protein 5.5 gm/dl (6.0-8.3)
[2022-04-06] MEDS ORDERED: D5W AND LACTATED RINGERS 1,000 ML IV SCH (09:45)
[2022-04-06] MEDS: PANTOprazole 40 MG TAB PO SCH ×2 (09:48→20:25)
[2022-04-06] MEDS: MAGNESIUM OXIDE 400 MG TAB PO SCH ×2 (09:48→20:24)
[2022-04-06] MEDS: ESCITALOPRAM OXALATE 20 MG TAB PO SCH (09:48)
[2022-04-06] MEDS: ARIPiprazole 5 MG TAB PO SCH (09:48)
[2022-04-06] MEDS: HEPARIN SOD 5,000 UNIT/0.5 ML VIAL SQ SCH ×2 (09:48→21:50)
[2022-04-06] MEDS: POLYETHYLENE (MIRALAX) 17 GM PACK PO SCH (09:49)
[2022-04-06] MEDS: LIDOCAINE 5% 1 PATCH TD SCH (09:49)
[2022-04-06] MEDS: POTASSIUM CHLORIDE CRTAB 20 MEQ TABCR PO SCH ×3 (09:49→20:24)
[2022-04-06] MEDS: lamoTRIgine 100 MG TAB PO SCH (09:49)
[2022-04-06] MEDS ORDERED: MoRPHine SULFATE 5 MG/0.25 ML UDP PO PRN (12:06)
--- NOTE | 2022-04-06 12:15 | Palliative Care Progress Note ---
Date of Service April 06, 2022 Assessment & Plan (1) Palliative care encounter: Plan: Stage IV met adeno ca colon, biopsy confirmed. Awaiting Port. has follow up appt for OP oncology next week with Dr Meyer, likely will be started on FOLFOX once all cancer testing is completed. (2) Cancer related pain: Plan: pt is not using IV MS as much as it is available, she states she does not want to bother staff or have them think she is med seeking, however pain is present all the time and does not janak without meds. I encouraged her to ask for pain med as needed, reassured no one feels she is med seeking or addicted. Will begin Roxanol 5mg PO Q2h prn/hold for somnolence or RR<14, order written and will continue IV MS as back up for very severe pain unrelieved by oral meds. She needs to be started on a regimen that can follow with her to the OP setting, so this is the first step. (3) Adenocarcinoma, colon: (4) Cachexia: Plan: Supplemental nutrition modalities reviewed with pt and reccs made for methods to amplify nutrition. Plan Plan as outlined above. Orders written. Please page me this weekend if any issues arise. I will follow pt in outpatient Pall med clinic. Radha Zeng DNP Clinical Director, Palliative Medicine Admission and Anticipated Discharge Date Admission Date: March 29, 2022 Subjective Patient is seen at bedside, her friend is visiting. She states that her port procedure has been rescheduled for Saturday. She is unable dismayed that she has to stay in the hospital through the weekend. She states that she would like to go home as she feels more comfortable there. She has been rarely using the IV morphine as ordered for pain control. She states that she often forgets it is available but her pain is present throughout the day and tends to intensify with activity or exertion. Continues to be predominantly in her right lower back radiating around to the right flank occasionally with an electric or shooting pain down into the right lower pelvic region. Review of Systems Review of Systems: All systems reviewed & are unremarkable except as noted in Subjective Physical Exam Physical Exam: Patient is seen while lying in bed. She is thin, tire d-and-frail appearing. Today she appears jaundiced, with slightly icteric sclera. Her eyes are reactive and equal to light. Her mucosa is slightly dry. Her dentition is intact. Her skin is delicate and somewhat dry. Her heart tones are normal. S1S2 without any murmur noted. There is no JVD. Chest sounds are clear anteriorly with no wheezes, Rales or rhonchi. Abdomen is more distended than my prior exam. It is firm to palpation. Bowel sounds are diminished. ++tenderness noted with palpation throughout greater on the right than the left. Pain does radiate from mid lower back around to the anterior right middle quadrant. She is moving her extremities and strength is diminished but equal bilaterally. Sensation is intact. She is awake alert and oriented x3. She is able to follow commands and she is cooperative with this examiner. Results & Data ([facility]) Vital Signs (Past 12 Hours) Vital Signs Temp Pulse Resp BP Pulse Ox O2 Del Method 04/06/22 11:36 Room Air 04/06/22 07:49 36.7 C 83 18 96/60 L 95 Room Air Laboratory Results imaging and labs reviewed PG Care Time/CCT Total # of Minutes Spent Total Time Spent: 60 Total Time Spent with Patient: Total time spent is greater than 50% in coordination of care (as documented) at patient's floor/unit and/or counseling patient:yes Prolonged Care Time Prolonged Care Time: No [place] [address] Subseq Hosp Care Lvl 3 Patient Type Established Medical Decision Making Moderate Complexity Diagnoses Palliative care encounter Z51.5 Cancer related pain G89.3 Adenocarcinoma, colon C18.9 Cachexia R64
--- NOTE | 2022-04-06 14:11 | Hospitalist Progress Note ---
Date of Service April 06, 2022 Assessment & Plan (1) Colonic mass: (2) Liver masses: (3) Elevated LFTs: Plan This is a 57-year-old female who presents with 2 months of abdominal pain, ongoing nausea, vomiting, weight loss. She was found to have colon mass with metastases to liver and lungs. Colon mass Liver metastases CT abdomen and pelvis with IV contrast showing 5 cm ascending colon mass with diffuse hepatic metastatic disease and also pulmonary metastatic disease. Colonic neoplasm is diagnosis of exclusion, by CAT scan report. Admitting provider discussed with GI that her LFTs looks like obstructive pattern. GI recommended for liver ultrasound and also IV antibiotics and plan for colonoscopy. IV fluids, IV morphine p.r.n., IV antiemetics p.r.n. GI consulted - Colonoscopy from 04/02 with: - Malignant partially obstructing tumor in the ascending colon. This was found just proximal to the IC valve at 70 cm. Biopsied. Tattooed. Two polyps in the ascending colon. - Tumor markers ordered Surgery - no plan for surg. intervention at this time Oncology - CTA chest without PE, IV Venofer x2, follow up as outpt. w/ Dr. Meyer (has appointment on 04/11/22) Palliative - Roxanol 5mg PO Q2h prn/hold for somnolence or RR<14, order written and will continue IV MS as back up for very severe pain unrelieved by oral meds. Follow up with palliative in outpatient clinic Vascular surgery - consulted for port placement. Scheduled for Saturday, Apr 09 Dysphagia Esophagitis Speech eval also ordered and GI contacted and given patient's difficulty swallowing/discomfort with swallowing EGD - Dysphagia likely related to severe esophagitis seen on exam. Start a PPI 40 mg BID taken 30-60 minutes prior to a meal for the next 12 weeks then 40 mg PO daily thereafter. - Typically would recommend a repeat EGD in 8-12 weeks to assess healing however given metastatic colon cancer would recommend discussion of benefit repeating endoscopy given new cancer diagnosis Anemia 2/2 above ongoing illness.Heme/onc following, recommended Venofer x 2 which she has received. Hgb stable at 8.4 (7.8 yesterday) Leukocytosis On IV Zosyn. Following the cultures. Follow the repeat labs. Discussed with GI, recommend to continue antibiotics. Mild Hyponatremia Sodium 128 on admission, possibly from nausea and vomiting.Received fluids. Na mildly improved ~129/130, stable Acute kidney injury --> Resolved Creatinine 1.34 on admission, now 0.80. Monitor BMP Depression Continue home medications Disposition- Interested in rehab vs HH. CM aware, appreciate assistance. PT/OT evaluations ordered DVT prophylaxis:heparin subq Dispo: Admitted on medical floor Admission and Anticipated Discharge Date Admission Date: March 29, 2022 Supervising Physician Co-Signing Physician Notes Patient seen and examined independently. Patient is lying on the bed comfortably; not in any discomfort. She reports she had improved appetite today. Discussed her cancer diagnosis and the plan going forward. She is aware of overall prognosis of her cancer. She would like to follow-up with oncology on Saturday and discuss regarding treatment options. She is okay with proceeding with for the cath placement on Saturday. CODE STATUS discussed as well; she would like to continue medications but if it gets to the point where she would need CPR or life support; she will want to be made comfortable as possible. Her sister was at bedside during the discussion. CODE STATUS changed. On examination, Alert oriented x3 Chestbilateral basal breath sound Abdomendistended; nontender. Neuro grossly intact Plan is to obtain ultrasound abdomen to assess for ascites. If there is in creasing ascites; will get paracentesis on Saturday. She is also scheduled for Port-A-Cath placement on Saturday. She wants to get discharged on Saturday. Discussed regarding disposition; she is open to going to rehab. Referral given to [facility]. Case management on board. Subjective Seen and examined in 320 bed 1, chatting with friend at bedside. Still having lower abdominal pain and more fullness. Excited to eat regular diet today although still with limited appetite. Denies any fever, chills, lightheadedness, headache, chest pain, shortness of breath, nausea or vomiting. No dysuria, diarrhea Review of Systems Review of Systems: All systems reviewed & are unremarkable except as noted in Subjective Physical Exam Physical Exam: Gen: WD/WN, NAD, lying in bed, A&Ox3 HEENT: Normocephalic, atraumatic, conjunctivae moist, sclerae anicteric, mucous membranes moist Lung: Clear to Auscultation bilaterally, no wheezes/rales/rhonchi Heart: Regular rate, regular rhythm, no murmurs, rubs, or gallops Abdomen: Soft but distended. + mass at RUQ/epigastric region and RLQ +BS x 4 Extremities: no edema Skin: Warm, no rash Results & Data Results & Data ([facility]) Vital Signs (Past 12 Hours) Vital Signs Temp Pulse Resp BP Pulse Ox O2 Del Method 04/06/22 11:36 Room Air 04/06/22 07:49 36.7 C 83 18 96/60 L 95 Room Air Laboratory Results Short CBC 04/06/22 Range/Units 08:17 WBC 18.18 H (4.8-10.8) K/ul Hgb 8.4 L (12.0-16.0) g/dl Hct 26.9 L (34.1-44.9) % Plt Count 407 H (130-400) K/uL BMP 04/06/22 08:17 Sodium 129 L Potassium 4.9 Chloride 101 Carbon Dioxide 21 BUN 10 Creatinine 0.80 Glucose 65 L Calcium 8.3 L Liver Function 04/06/22 Range/Units 08:17 Total Bilirubin 7.9 H (0.2-1.0) mg/dl AST 111 H (13-39) U/L ALT 58 H (7-52) U/L Alkaline Phosphatase 485 H (34-104) U/L Albumin 2.1 L (3.4-5.0) gm/dl Diagnostic Findings Abdomen/Pelvis CT 03/29/22 16:37 CT SCAN OF THE ABDOMEN AND PELVIS WITH IV CONTRAST CLINICAL HISTORY: Epigastric abdominal pain. COMPARISON STUDY: No priors. TECHNIQUE: Following the IV administration of 83 cc of Optiray 350, CT scan of the abdomen and pelvis is performed from the lung bases to the proximal femora. Images are reviewed in the axial, sagittal, and coronal planes. IV contrast was administered without complication. A dose lowering technique was utilized adhering to the principles of ALARA. CT DOSE: 291.18 mGy.cm FINDINGS: Lung bases: The heart is normal in size and without pericardial effusion. There are numerous (greater than 15) pulmonary nodules CT of both lung bases. These likely represent metastatic disease. The largest nodule is seen in the right lower lobe in image #16 measures 1.4 cm. A 1.0 cm left lower lobe nodule is seen image #36. There is no airspace consolidation typical for pneumonia or pleural effusion. Liver: The contrast-enhanced liver is enlarged and heterogeneous, measuring 25.2 cm in length. The liver is diffusely infiltrated by confluent multifocal metastatic disease. A in store marketing representative right lobe lesion on image #80 measures 7.5 cm. There is no intrahepatic biliary ductal dilatation. There is narrowing of the right and left lobe portal branches secondary to large hepatic mass lesions. The vessels remain patent with no intraluminal thrombus. Gallbladder: Gallbladder wall thickening is nonspecific and likely related to adjacent hepatocellular disease. There is no CT evidence of acute cholecystitis. Spleen: Normal in size and attenuation. Pancreas: Unremarkable. Adrenal glands: An indeterminate left adrenal nodule measures up to 1.4 cm. Kidneys: The contrast enhanced kidneys are normal in size and without hydronephrosis. The kidneys enhance heterogeneously. Abdominal vasculature: The abdominal aorta is normal in course and caliber noting moderate atherosclerotic calcification. Bowel: There is a mass lesion of the proximal ascending colon seen on axial image #280. This measures at least 5.5 cm maximum dimension and causes colocolic intussusception. There is no upstream obstruction. The small bowel loops are normal in caliber. The appendix is normal as visualized seen on image #319 Peritoneum: There is a small volume of abdominopelvic ascites. No intraperitoneal free air is seen. There is a fat-containing umbilical hernia. Lymphadenopathy: Mildly enlarged upper abdominal lymph nodes likely represent m etastatic disease. A gastrohepatic node on image #196 measures 1.5 cm in short axis. Pelvic viscera: The bladder, uterus, and adnexa are normal as visualized. Skeletal structures: No lytic or blastic lesions are clearly seen. There are bilateral pars defects at L5 with moderate disc space narrowing and minimal anterolisthesis of L5-S1. IMPRESSION: 1. There is an approximately 5 cm mass lesion of the ascending colon. A colonic neoplasm is the diagnosis of exclusion. 2. The liver is enlarged and diffusely infiltrated by hepatic metastatic disease. 3. Multifocal pulmonary metastatic disease is seen at the lung bases. 4. Metastatic lymphadenopathy is seen in the upper abdomen. 5. The colonic mass causes colocolonic intussusception. No obstruction is seen. 6. Small volume of abdominopelvic ascites. 7. The kidneys enhance heterogeneously. Correlate with clinical findings and urinalysis. 8. Additional findings as above. ACT 112: Negative or not required by law. Electronically signed by: Rebel Johansen M.D. 03/29/2022 6:34 PM Liver Ultrasound 11/24/22 21:39 ULTRASOUND RIGHT UPPER QUADRANT ABDOMEN CLINICAL HISTORY: Elevated hepatic transaminases. COMPARISON STUDY: Abdominal CT dated 03/29/2022 TECHNIQUE: Real-time, grayscale, and color flow sonography of the right upper quadrant of the abdomen was performed. Images are reviewed in the transverse and longitudinal planes. FINDINGS: Liver: The liver is enlarged, heterogeneous, and diffusely infiltrated by metastatic disease. There is no intrahepatic biliary ductal dilatation. The main portal vein is patent. Gallbladder: Bladder wall thickening is nonspecific and likely related to adjacent hepatocellular disease. No shadowing gallstones are identified. There is no pericholecystic fluid. A sonographic Rodriguez's sign is reportedly absent. The common bile duct measures up to 0.4 cm in diameter. Pancreas: Visualized portions of the pancreatic head and body are normal in appearance. Right kidney: Survey images of the right kidney demonstrate normal size and echotexture. There is no hydronephrosis. Ascites: None. IMPRESSION: 1. The liver is enlarged and diffusely infiltrated by metastatic disease. 2. No gallstones are identified. ACT 112: Negative or not required by law. Electronically signed by: Rebel Johansen M.D. 03/30/2022 7:31 AM Venous Doppler Study 03/29/22 21:39 ULTRASOUND BILATERAL LOWER EXTREMITY VENOUS CLINICAL HISTORY: Lower extremity edema. COMPARISON STUDY: No priors. TECHNIQUE: Real-time, grayscale, and color Doppler sonography of the deep veins of the right and left lower extremity was performed from the inguinal crease to the calf. Compression and augmentation were utilized. FINDINGS: There is no sonographic evidence of deep venous thrombosis identified in the right or left lower extremity. The common femoral, superficial femoral, and popliteal veins are patent and normally compressible bilaterally. The greater saphenous vein and the profunda femoris vein at the junction with the common femoral vein are clear in both legs. The visualized calf veins are patent bilaterally. A popliteal cyst on the left measures 2.6 x 0.7 x 2.3 cm area IMPRESSION: 1. There is no sonographic evidence of deep venous thrombosis identified in the right or left lower extremity. 2. Left popliteal cyst. ACT 112: Negative or not required by law. Electronically signed by: Rebel Johansen M.D. 03/30/2022 7:05 AM Chest CTA 03/30/22 13:37 CT angio chest PE protocol CLINICAL HISTORY: r/o PE, pt w/ mets TECHNIQUE: Multidetector row helical CT of the chest was performed with angiographic protocol. Coronal and sagittal reformations were obtained. Coronal and sagittal MIPS were obtained from the axial data set and were submitted for review. Automated dose lowering techniques and/or adjustment according to patient size were utilized for this exam. CT DOSE: 207.98 mGy.cm Comparison: None available at the time of this dictation. FINDINGS: Lungs and pleura: Minimal atelectasis is noted. Innumerable pulmonary nodules are seen favoring the lower lobes. Prominent nodules include the followin mm pleural-based nodule at the right lung base (series 4 image 49) 4 mm nodule in the left lower lobe (image 51) 4 mm nodule in the right lower lobe (image 58) 13 mm nodule in the right lower lobe (image 78) 12 mm nodule in the left lower lobe (image 83) 3 mm nodule in the left lower lobe (image 92) 3 mm nodule in the left lower lobe (image 119) 4 mm nodule in the left lower lobe (image 129) 3 mm nodule in the right lower lobe (image 131) Heart and pericardium: Heart size is normal. No pericardial effusion. Vessels: No evidence of pulmonary embolism. Mediastinum and saad: Unremarkable. Chest wall and lower neck: Unremarkable. Abdomen: Partial visualization of fine hepatic masses. Bones: Unremarkable. IMPRESSION: 1. No evidence of pulmonary embolism. 2. Numerous pulmonary nodules as above compatible with metastatic disease. 3. Partial visualization of hepatic metastases. ACT 112: Negative or not required by law. Electronically signed by: Clint Vargas M.D. 03/30/2022 3:07 PM KUB X-Ray 04/03/22 11:17 KUB HISTORY: Generalized abdominal pain. History of colonic mass. COMPARISON: Abdomen and pelvis CT 03/29/2022. FINDINGS: Gas-filled nondilated loops of large and small bowel are seen throughout the abdomen. No evidence for bowel obstruction at this time. The liver remains enlarged. No renal calculi. No ureteral calculi. No pneumoperitoneum or pneumatosis. IMPRESSION: 1. No evidence for bowel obstruction at this time. 2. Persistent hepatomegaly. ACT 112: Negative or not required by law. Electronically signed by: Alexei Adamson M.D. 04/03/2022 12:23 PM Barium Swallow X-Ray 04/04/22 13:30 FL barium swallow CLINICAL HISTORY: globus sensation; new diagnosis of cancer COMPARISON STUDY: Chest CT 03/30/2022. Fluoroscopy time: 1.6 minutes. 19 fluoroscopic spot images and a cine loop were submitted. FINDINGS: The patient swallowed barium without difficulty. The contours of the hypopharynx are within normal limits. The esophagus is normal in course, caliber, and motility. No hiatus hernia. No gastroesophageal reflux demonstrated during the examination. A barium tablet passed without difficulty. IMPRESSION: Normal barium swallow. ACT 112: Negative or not required by law. Electronically signed by: Alexei Adamson M.D. 04/04/2022 2:31 PM
--- NOTE | 2022-04-06 14:14 | Consultation ---
Date of Consultation April 06, 2022 Assessment & Plan (1) Poor venous access: Patient scheduled for insertion of an infusaport on Saturday in the am. I have discussed the risks options and benefits of the procedure with the patient. The patient understands the risks options and benefits and agrees to the procedure. Thank you very much for letting us participate in the care of this patient. History of Present Illness Reason for Consultation: Colon ca, lack of venous access Attending Physician: Nithin Jacobs MD History of Present Illness This is a 57yo female with metastatic colon ca in need of an access for her chemotherapy. An infusaport was recommended. She has had numerous peripheral lines but no central lines. She denies any DVT of the upper extremities or arm edema. Allergies Allergy/AdvReac Type Severity Reaction Status Date / Time No Known Allergies Allergy Verified 04/02/22 08:22 Home Medications Medication Instructions Recorded Confirmed Type aripiprazole 5 mg tablet 5 mg PO DAILY 03/29/22 03/29/22 History escitalopram oxalate 20 mg tablet 20 mg PO DAILY 03/29/22 03/29/22 History lamotrigine 100 mg tablet 100 mg PO DAILY 03/29/22 03/29/22 History Patient History Medical History Adenocarcinoma, colon Stage IV met disease FYI from psych: If at some point she develops significant enough nausea that she is not able to continue with consistent use of lamictal then this would need to be re-titrated if more than 3 days of missed doses as this increases the risk of Cheung-Stu syndrome Cachexia Depression followed by psych in [place] and will est care here in [place]. Per psych eval 04/04/22: If at some point she develops significant enough nausea that she is not able to continue with consistent use of lamictal then this would need to be re-titrated if more than 3 days of missed doses as this increases the risk of Cheung-Stu syndrome Encounter for pre-operative examination Palliative care encounter Weakness generalized Social History Smoking Status: Former smoker Second Hand Exposure: No; Hx Alcohol Use: Yes Alcohol type: wine Hx Substance Use: No Preferred Language: German Communication Ability: Effective Mine Safety Manager Required: No Beliefs That Will Affect Care: Taoist Current Living Situation: Alone Feels Safe at Home: Yes and No Is there a partner from a previous relationship who is making you feel unsafe now?: No Assistive Devices: None Review of Systems Review of Systems: All systems reviewed & are unremarkable except as noted in HPI & below Physical Exam Constitutional: WD/WN, vitals as above Neck: trachea midline Respiratory: normal respiratory effort; no respiratory distress Auscultation: lungs clear to auscultation bilaterally Cardiovascular: Rate/Rhythm: regular rate and regular rhythm Extremities: no edema Gastrointestinal (Abdomen): Percussion/Palpation: abdomen soft; abdomen nontender Neurologic: CN's II-XI intact bilaterally and moves all extremities Psychiatric: Orientation: alert and oriented x 3 Results & Data ([facility]) Vital Signs (Past 12 Hours) Vital Signs Temp Pulse Resp BP Pulse Ox O2 Del Method 04/06/22 11:36 Room Air 04/06/22 07:49 36.7 C 83 18 96/60 L 95 Room Air
[2022-04-06] MEDS: MoRPHine SULFATE 5 MG/0.25 ML UDP PO PRN (16:38)
[2022-04-06] MEDS: SIMETHICONE 80 MG CHEW PO PRN (20:25)
--- NOTE | 2022-04-06 20:25 | Ultrasound Report ---
US abdomen ltd ascites CLINICAL HISTORY: Follow up on ascites TECHNIQUE: Real-time grayscale sonographic images of the abdomen were obtained. Comparison: None available at the time of this dictation. FINDINGS/IMPRESSION: A small amount of ascites is seen in the right lower quadrant and midline pelvis . ACT 112: Negative or not required by law. Electronically signed by: Clint Vargas M.D. 04/06/2022 8:23 PM
[2022-04-06] MEDS: MoRPHine SULFATE 4 MG/ML 1 ML CARP\\VIAL IV PRN (20:27)
[2022-04-07] MEDS: MoRPHine SULFATE 4 MG/ML 1 ML CARP\\VIAL IV PRN ×2 (06:32→23:34)
[2022-04-07 07:35] LABS: Basophils # (auto) 0.08 K/uL (0-0.2); Basophils % (auto) 0.5 %; Eosinophils # (auto) 0.07 K/uL (0-0.50); Eosinophils % (auto) 0.4 %; Hematocrit (blood only) 24.1 % (34.1-44.9); Hemoglobin 7.6 g/dl (12.0-16.0); Immature Granulocytes # (auto) 0.16 K/uL (0.00-0.02); Immature Granulocytes % (auto) 0.9 %; Lymphocytes % (auto) 9.1 %; Mean Corpuscular Hemoglobin 26.8 pg (25.0-34.0); Mean Corpuscular Hgb Conc 31.5 g/dL (32.0-36.0); Mean Corpuscular Volume 84.9 fL (80.0-100.0); Mean Platelet Volume 9.7 fL (9.4-12.3); Monocytes % (auto) 7.4 %; Neutrophils # (auto) 14.43 K/uL (1.4-6.5); Neutrophils % (auto) 81.7 %; Platelet Count 351 K/uL (130-400); RDW Coefficient of Variation 22.9 % (11.5-14.5); Red Blood Count 2.84 M/uL (3.93-5.22); White Blood Count 17.64 K/ul (4.8-10.8)
[2022-04-07] MEDS: PIPERACILLIN/TAZOBACTAM 3.375 GM in DEXTROSE 5% 100 ML IV SCH (07:51)
[2022-04-07 07:53] LABS: Creatinine Clr Calc Pharmacy 48.5 ml/min; Est GFR (African American) 80.1 ml/min; Est GFR (Non-African American) 69.1 ml/min; Potassium 4.9 mmol/L (3.5-5.1)
[2022-04-07 08:06] LABS: Anisocytosis Present; Polychromasia 1+; Spherocytes 1+; Target Cells 1+
[2022-04-07] MEDS: MAGNESIUM OXIDE 400 MG TAB PO SCH ×2 (10:01→20:16)
[2022-04-07] MEDS: POLYETHYLENE (MIRALAX) 17 GM PACK PO SCH (10:02)
[2022-04-07] MEDS: ARIPiprazole 5 MG TAB PO SCH (10:02)
[2022-04-07] MEDS: PANTOprazole 40 MG TAB PO SCH ×2 (10:03→20:17)
[2022-04-07] MEDS: HEPARIN SOD 5,000 UNIT/0.5 ML VIAL SQ SCH ×2 (10:04→20:16)
[2022-04-07] MEDS: lamoTRIgine 100 MG TAB PO SCH (10:04)
[2022-04-07] MEDS: ESCITALOPRAM OXALATE 20 MG TAB PO SCH (10:04)
[2022-04-07] MEDS: LIDOCAINE 5% 1 PATCH TD SCH (10:05)
[2022-04-07] MEDS: POTASSIUM CHLORIDE CRTAB 20 MEQ TABCR PO SCH ×3 (10:05→20:15)
--- NOTE | 2022-04-07 14:36 | Hospitalist Progress Note ---
Date of Service April 07, 2022 Assessment & Plan (1) Colonic mass: (2) Liver masses: (3) Elevated LFTs: Plan This is a 57-year-old female who presents with 2 months of abdominal pain, ongoing nausea, vomiting, weight loss. She was found to have colon mass with metastases to liver and lungs. Colon mass Liver metastases CT abdomen and pelvis with IV contrast showed 5 cm ascending colon mass with diffuse hepatic metastatic disease and also pulmonary metastatic disease. Admitting provider discussed with GI that her LFTs looks like obstructive pattern. GI recommended for liver ultrasound and also IV antibiotics and plan for colonoscopy. IV fluids, IV morphine p.r.n., IV antiemetics p.r.n. GI consulted - Colonoscopy from 04/02 with: - Malignant partially obstructing tumor in the ascending colon. This was found just proximal to the IC valve at 70 cm. Biopsied. Tattooed. Two polyps in the ascending colon. - Tumor markers ordered Surgery - no plan for surg. intervention at this time Oncology - CTA chest without PE, IV Venofer x2, follow up as outpt. w/ Dr. Meyer (has appointment on 04/11/22) Palliative - Roxanol 5mg PO Q2h prn/hold for somnolence or RR<14, order written and will continue IV MS as back up for very severe pain unrelieved by oral meds. Follow up with palliative in outpatient clinic Vascular surgery - consulted for port placement. Scheduled for Saturday, Apr 09 Dysphagia Esophagitis Speech eval also ordered and GI contacted and given patient's difficulty swallowing/discomfort with swallowing EGD - Dysphagia likely related to severe esophagitis seen on exam. Start a PPI 40 mg BID taken 30-60 minutes prior to a meal for the next 12 weeks then 40 mg PO daily thereafter. - Typically would recommend a repeat EGD in 8-12 weeks to assess healing however given metastatic colon cancer would recommend discussion of benefit repeating endoscopy given new cancer diagnosis Anemia 2/2 above ongoing illness.Heme/onc following, recommended Venofer x 2 which she has received. Hgb stable at 8.4 (7.8 yesterday) Leukocytosis No sign of infection; blood culture negative. Received 1 week of Zosyn. Mild Hyponatremia Sodium 128 on admission, possibly from nausea and vomiting.Received fluids. Na mildly improved ~129/130, stable Acute kidney injury --> Resolved Creatinine 1.34 on admission; improved. Depression Continue home medications Disposition-patient to have port placement done on Saturday by vascular surgery. Discharge home versus rehab with follow-up with oncology on Saturday. Case management on board. PT OT ordered. DVT prophylaxis:heparin subq Dispo: Admitted on medical floor Admission and Anticipated Discharge Date Admission Date: March 29, 2022 Subjective Patient seen and examined at bedside. She is lying in the bed comfortably; not in any distress. She reports that she was able to walk the hallway with the help of her sister yesterday. Review of Systems Review of Systems: All systems reviewed & are unremarkable except as noted in Subjective Physical Exam Physical Exam: Gen: WD/WN, NAD, lying in bed, A&Ox3 HEENT: Normocephalic, atraumatic, conjunctivae moist, sclerae anicteric, mucous membranes moist Lung: Clear to Auscultation bilaterally, no wheezes/rales/rhonchi Heart: Regular rate, regular rhythm, no murmurs, rubs, or gallops Abdomen: Distended; nontender. Extremities: no edema Skin: Warm, no rash Results & Data Results & Data ([facility]) Vital Signs (Past 12 Hours) Vital Signs Temp Pulse Resp BP Pulse Ox O2 Del Method 04/07/22 07:40 36.3 C L 87 16 101/64 95 Room Air Laboratory Results Laboratory Results WBC 17.64 K/ul (4.8-10.8) H 04/07/22 06:39 RBC 2.84 M/uL (3.93-5.22) L 04/07/22 06:39 Hgb 7.6 g/dl (12.0-16.0) L 04/07/22 06:39 POC Hgb 10.9 g/dl (12.0-16.0) L 03/29/22 16:47 Hct 24.1 % (34.1-44.9) L 04/07/22 06:39 POC Hct 32 % (37-47) L 03/29/22 16:47 MCV 84.9 fL (80.0-100.0) 04/07/22 06:39 MCH 26.8 pg (25.0-34.0) 04/07/22 06:39 MCHC 31.5 g/dL (32.0-36.0) L 04/07/22 06:39 RDW Std Deviation 71.0 fL (36.4-46.3) H 04/07/22 06:39 RDW Coeff of Josef 22.9 % (11.5-14.5) H 04/07/22 06:39 Plt Count 351 K/uL (130-400) 04/07/22 06:39 MPV 9.7 fL (9.4-12.3) 04/07/22 06:39 Immature Gran % (Auto) 0.9 % 04/07/22 06:39 Neut % (Auto) 81.7 % 04/07/22 06:39 Lymph % (Auto) 9.1 % 04/07/22 06:39 [place] % (Auto) 7.4 % 04/07/22 06:39 Eos % (Auto) 0.4 % 04/07/22 06:39 Baso % (Auto) 0.5 % 04/07/22 06:39 Neut # (Auto) 14.43 K/uL (1.4-6.5) H 04/07/22 06:39 Lymph # (Auto) 1.60 K/uL (1.2-3.4) 04/07/22 06:39 [place] # (Auto) 1.30 K/uL (0.24-0.82) H 04/07/22 06:39 Eos # (Auto) 0.07 K/uL (0-0.50) 04/07/22 06:39 Baso # (Auto) 0.08 K/uL (0-0.2) 04/07/22 06:39 Immature Gran # (Auto) 0.16 K/uL (0.00-0.02) H 04/07/22 06:39 Polychromasia 1+ 04/07/22 06:39 Anisocytosis Present 04/07/22 06:39 Spherocytes 1+ 04/07/22 06:39 Target Cells 1+ 04/07/22 06:39 PT 14.8 Seconds (9.0-12.0) H 04/06/22 08:17 INR 1.4 (0.9-1.1) H 04/06/22 08:17 POC Sodium 132 mmol/L (135-144) L 03/29/22 16:47 Sodium 130 mmol/L (136-145) L 04/07/22 06:39 POC Potassium 3.7 mmol/L (3.3-5.0) 03/29/22 16:47 Potassium 4.9 mmol/L (3.5-5.1) 04/07/22 06:39 POC Chloride 100 mmol/L (101-112) L 03/29/22 16:47 Chloride 103 mmol/L (98-107) 04/07/22 06:39 Carbon Dioxide 21 mmol/L (21-32) 04/07/22 06:39 POC Total CO2 23 mmol/L (24-31) L 03/29/22 16:47 Anion Gap 6 (3-11) 04/07/22 06:39 POC Anion Gap 14.0 mmol/L (16-25) L 03/29/22 16:47 POC BUN 35 mg/dl (7-18) H 03/29/22 16:47 BUN 12 mg/dl (6-23) 04/07/22 06:39 Creatinine 0.92 mg/dl (0.6-1.2) 04/07/22 06:39 POC Creatinine 1.4 mg/dl (0.6-1.3) H 03/29/22 16:47 Est Cr Clr Drug Dosing 48.5 ml/min 04/07/22 06:39 Est GFR ( Amer) 80.1 ml/min 04/07/22 06:39 Est GFR (Non-Af Amer) 69.1 ml/min 04/07/22 06:39 BUN/Creatinine Ratio 13.0 (10-20) 04/07/22 06:39 Glucose 83 mg/dl (70-99(Fasting)) 04/07/22 06:39 POC Glucose (other) 125 mg/dl (70-99) H 03/29/22 16:47 Calcium 8.0 mg/dl (8.5-10.1) L 04/07/22 06:39 POC Ioniz Calcium David 1.15 mmol/l (1.12-1.32) 03/29/22 16:47 Phosphorus 3.0 mg/dl (2.5-4.9) 04/04/22 07:31 Magnesium 1.5 mg/dl (1.7-2.4) L 04/04/22 07:31 Iron 15 mcg/dl (35-150) L 03/30/22 05:22 TIBC 178 mcg/dl (250-450) L 03/30/22 05:22 Unsaturated IBC 163 mcg/dl (155-355) 03/30/22 05:22 Transferrin % Sat 8 % (15-50) L 03/30/22 05:22 Ferritin 181.8 ng/ml (8-388) 03/30/22 14:30 Total Bilirubin 7.9 mg/dl (0.2-1.0) H 04/06/22 08:17 Direct Bilirubin 2.6 mg/dl (0-0.2) H 03/30/22 05:22 AST 111 U/L (13-39) H 04/06/22 08:17 ALT 58 U/L (7-52) H 04/06/22 08:17 Alkaline Phosphatase 485 U/L (34-104) H 04/06/22 08:17 Troponin I High Sens 22.6 pg/ml (0-14) H 03/30/22 05:22 B-Natriuretic Peptide 64 pg/ml (0-100) 03/29/22 16:43 Total Protein 5.5 gm/dl (6.0-8.3) L 04/06/22 08:17 Albumin 2.1 gm/dl (3.4-5.0) L 04/06/22 08:17 Globulin 3.4 gm/dl (2.5-4.0) 04/06/22 08:17 Albumin/Globulin Ratio 0.6 (0.9-2) L 04/06/22 08:17 Lipase 5 U/L (11-82) L 03/29/22 16:43 Tumor Marker AFP 2.4 ng/mL 03/30/22 10:49 Carcinoembryonic Ag 315.9 ng/ml (0-2.5) H 03/30/22 10:49 CA 125 Antigen 129 U/mL (<35) H 03/30/22 10:49 Vitamin B12 > 1500 pg/ml (180-914) H 03/30/22 05:22 Folate 11.17 ng/ml (>5.38) 03/30/22 05:22 Urine Color Dark Yellow 03/29/22 21:00 Urine Appearance Cloudy (Clear) A 03/29/22 21:00 Urine pH 5.5 (4.5-7.5) 03/29/22 21:00 Ur Specific [place] 1.042 (1.000-1.030) H 03/29/22 21:00 Urine Protein 1+ (Negative) H 03/29/22 21:00 Urine Glucose (UA) Negative (Negative) 03/29/22 21:00 Urine Ketones Negative (Negative) 03/29/22 21:00 Urine Blood Negative (Negative) 03/29/22 21:00 Urine Nitrite Positive (Negative) A 03/29/22 21:00 Urine Bilirubin 2+ (Negative) H 03/29/22 21:00 Urine Urobilinogen Negative (Negative) 03/29/22 21:00 Ur Leukocyte Esterase Trace (Negative) H 03/29/22 21:00 Urine WBC (Auto) 1-5 /hpf (0-5) 03/29/22 21:00 Urine RBC (Auto) 0-4 /hpf (0-4) 03/29/22 21:00 U Hyaline Cast (Auto) 1-5 /lpf (0-5) 03/29/22 21:00 U Epithel Cells (Auto) 20-30 /lpf (0-5) H 03/29/22 21:00 Urine Bacteria (Auto) Negative (Negative) 03/29/22 21:00 Amorphous Sediment Present (None Prsent) A 03/29/22 21:00 Urine Yeast Not Reportable 03/29/22 21:00 Stool Occult Bld Scrn Negative (Negative) 03/31/22 09:00 SARS-CoV-2, RNA, NAAT NEGATIVE (NEGATIVE) 03/29/22 Unknown Impressions Abdomen/Pelvis CT 03/29/22 16:37 CT SCAN OF THE ABDOMEN AND PELVIS WITH IV CONTRAST CLINICAL HISTORY: Epigastric abdominal pain. COMPARISON STUDY: No priors. TECHNIQUE: Following the IV administration of 83 cc of Optiray 350, CT scan of the abdomen and pelvis is performed from the lung bases to the proximal femora. Images are reviewed in the axial, sagittal, and coronal planes. IV contrast was administered without complication. A dose lowering technique was utilized adhering to the principles of ALARA. CT DOSE: 291.18 mGy.cm FINDINGS: Lung bases: The heart is normal in size and without pericardial effusion. There are numerous (greater than 15) pulmonary nodules CT of both lung bases. These likely represent metastatic disease. The largest nodule is seen in the right lower lobe in image #16 measures 1.4 cm. A 1.0 cm left lower lobe nodule is seen image #36. There is no airspace consolidation typical for pneumonia or pleural effusion. Liver: The contrast-enhanced liver is enlarged and heterogeneous, measuring 25.2 cm in length. The liver is diffusely infiltrated by confluent multifocal metastatic disease. A textile machinery sales representative right lobe lesion on image #80 measures 7.5 cm. There is no intrahepatic biliary ductal dilatation. There is narrowing of the right and left lobe portal branches secondary to large hepatic mass lesions. The vessels remain patent with no intraluminal thrombus. Gallbladder: Gallbladder wall thickening is nonspecific and likely related to adjacent hepatocellular disease. There is no CT evidence of acute cholecystitis. Spleen: Normal in size and attenuation. Pancreas: Unremarkable. Adrenal glands: An indeterminate left adrenal nodule measures up to 1.4 cm. Kidneys: The contrast enhanced kidneys are normal in size and without hydronephrosis. The kidneys enhance heterogeneously. Abdominal vasculature: The abdominal aorta is normal in course and caliber noting moderate atherosclerotic calcification. Bowel: There is a mass lesion of the proximal ascending colon seen on axial image #280. This measures at least 5.5 cm maximum dimension and causes colocolic intussusception. There is no upstream obstruction. The small bowel loops are normal in caliber. The appendix is normal as visualized seen on image #319 Peritoneum: There is a small volume of abdominopelvic ascites. No intraperitoneal free air is seen. There is a fat-containing umbilical hernia. Lymphadenopathy: Mildly enlarged upper abdominal lymph nodes likely represent metastatic disease. A gastrohepatic node on image #196 measures 1.5 cm in short axis. Pelvic viscera: The bladder, uterus, and adnexa are normal as visualized. Skeletal structures: No lytic or blastic lesions are clearly seen. There are bilateral pars defects at L5 with moderate disc space narrowing and minimal anterolisthesis of L5-S1. IMPRESSION: 1. There is an approximately 5 cm mass lesion of the ascending colon. A colonic neoplasm is the diagnosis of exclusion. 2. The liver is enlarged and diffusely infiltrated by hepatic metastatic disease. 3. Multifocal pulmonary metastatic disease is seen at the lung bases. 4. Metastatic lymphadenopathy is seen in the upper abdomen. 5. The colonic mass causes colocolonic intussusception. No obstruction is seen. 6. Small volume of abdominopelvic ascites. 7. The kidneys enhance heterogeneously. Correlate with clinical findings and urinalysis. 8. Additional findings as above. ACT 112: Negative or not required by law. Electronically signed by: Rebel Johansen M.D. 03/29/2022 6:34 PM Liver Ultrasound 03/29/22 21:39 ULTRASOUND RIGHT UPPER QUADRANT ABDOMEN CLINICAL HISTORY: Elevated hepatic transaminases. COMPARISON STUDY: Abdominal CT dated 03/29/2022 TECHNIQUE: Real-time, grayscale, and color flow sonography of the right upper quadrant of the abdomen was performed. Images are reviewed in the transverse and longitudinal planes. FINDINGS: Liver: The liver is enlarged, heterogeneous, and diffusely infiltrated by metastatic disease. There is no intrahepatic biliary ductal dilatation. The main portal vein is patent. Gallbladder: Bladder wall thickening is nonspecific and likely related to adjacent hepatocellular disease. No shadowing gallstones are identified. There is no pericholecystic fluid. A sonographic Rodriguez's sign is reportedly absent. The common bile duct measures up to 0.4 cm in diameter. Pancreas: Visualized portions of the pancreatic head and body are normal in appearance. Right kidney: Survey images of the right kidney demonstrate normal size and echotexture. There is no hydronephrosis. Ascites: None. IMPRESSION: 1. The liver is enlarged and diffusely infiltrated by metastatic disease. 2. No gallstones are identified. ACT 112: Negative or not required by law. Electronically signed by: Rebel Johansen M.D. 03/30/2022 7:31 AM Venous Doppler Study 03/29/22 21:39 ULTRASOUND BILATERAL LOWER EXTREMITY VENOUS CLINICAL HISTORY: Lower extremity edema. COMPARISON STUDY: No priors. TECHNIQUE: Real-time, grayscale, and color Doppler sonography of the deep veins of the right and left lower extremity was performed from the inguinal crease to the calf. Compression and augmentation were utilized. FINDINGS: There is no sonographic evidence of deep venous thrombosis identified in the right or left lower extremity. The common femoral, superficial femoral, and popliteal veins are patent and normally compressible bilaterally. The greater saphenous vein and the profunda femoris vein at the junction with the common femoral vein are clear in both legs. The visualized calf veins are patent bilaterally. A popliteal cyst on the left measures 2.6 x 0.7 x 2.3 cm area IMPRESSION: 1. There is no sonographic evidence of deep venous thrombosis identified in the right or left lower extremity. 2. Left popliteal cyst. ACT 112: Negative or not required by law. Electronically signed by: Rebel Johansen M.D. 03/30/2022 7:05 AM Chest CTA 03/30/22 13:37 CT angio chest PE protocol CLINICAL HISTORY: r/o PE, pt w/ mets TECHNIQUE: Multidetector row helical CT of the chest was performed with angiographic protocol. Coronal and sagittal reformations were obtained. Coronal and sagittal MIPS were obtained from the axial data set and were submitted for review. Automated dose lowering techniques and/or adjustment according to patient size were utilized for this exam. CT DOSE: 207.98 mGy.cm Comparison: None available at the time of this dictation. FINDINGS: Lungs and pleura: Minimal atelectasis is noted. Innumerable pulmonary nodules are seen favoring the lower lobes. Prominent nodules include the followin mm pleural-based nodule at the right lung base (series 4 image 49) 4 mm nodule in the left lower lobe (image 51) 4 mm nodule in the right lower lobe (image 58) 13 mm nodule in the right lower lobe (image 78) 12 mm nodule in the left lower lobe (image 83) 3 mm nodule in the left lower lobe (image 92) 3 mm nodule in the left lower lobe (image 119) 4 mm nodule in the left lower lobe (image 129) 3 mm nodule in the right lower lobe (image 131) Heart and pericardium: Heart size is normal. No pericardial effusion. Vessels: No evidence of pulmonary embolism. Mediastinum and saad: Unremarkable. Chest wall and lower neck: Unremarkable. Abdomen: Partial visualization of fine hepatic masses. Bones: Unremarkable. IMPRESSION: 1. No evidence of pulmonary embolism. 2. Numerous pulmonary nodules as above compatible with metastatic disease. 3. Partial visualization of hepatic metastases. ACT 112: Negative or not required by law. Electronically signed by: Clint Vargas M.D. 03/30/2022 3:07 PM KUB X-Ray 04/03/22 11:17 KUB HISTORY: Generalized abdominal pain. History of colonic mass. COMPARISON: Abdomen and pelvis CT 03/29/2022. FINDINGS: Gas-filled nondilated loops of large and small bowel are seen throughout the abdomen. No evidence for bowel obstruction at this time. The liver remains enlarged. No renal calculi. No ureteral calculi. No pneumoperit oneum or pneumatosis. IMPRESSION: 1. No evidence for bowel obstruction at this time. 2. Persistent hepatomegaly. ACT 112: Negative or not required by law. Electronically signed by: Alexei Adamson M.D. 04/03/2022 12:23 PM Barium Swallow X-Ray 04/04/22 13:30 FL barium swallow CLINICAL HISTORY: globus sensation; new diagnosis of cancer COMPARISON STUDY: Chest CT 03/30/2022. Fluoroscopy time: 1.6 minutes. 19 fluoroscopic spot images and a cine loop were submitted. FINDINGS: The patient swallowed barium without difficulty. The contours of the hypopharynx are within normal limits. The esophagus is normal in course, caliber, and motility. No hiatus hernia. No gastroesophageal reflux demonstrated during the examination. A barium tablet passed without difficulty. IMPRESSION: Normal barium swallow. ACT 112: Negative or not required by law. Electronically signed by: Alexei Adamson M.D. 04/04/2022 2:31 PM Abdomen Ultrasound 04/06/22 14:09 US abdomen ltd ascites CLINICAL HISTORY: Follow up on ascites TECHNIQUE: Real-time grayscale sonographic images of the abdomen were obtained. Comparison: None available at the time of this dictation. FINDINGS/IMPRESSION: A small amount of ascites is seen in the right lower quadrant and midline pelvis. ACT 112: Negative or not required by law. Electronically signed by: Clint Vargas M.D. 04/06/2022 8:23 PM
[2022-04-07] MEDS: MoRPHine SULFATE 5 MG/0.25 ML UDP PO PRN (20:18)
[2022-04-08 07:02] LABS: BUN Creatinine Ratio 15.5 (10-20); Creatinine Clr Calc Pharmacy 53.1 ml/min; Est GFR (African American) 89.4 ml/min; Est GFR (Non-African American) 77.2 ml/min; Potassium 5.1 mmol/L (3.5-5.1)
[2022-04-08] MEDS: POLYETHYLENE (MIRALAX) 17 GM PACK PO SCH (08:35)
[2022-04-08] MEDS: MoRPHine SULFATE 4 MG/ML 1 ML CARP\\VIAL IV PRN ×2 (08:35→20:58)
[2022-04-08] MEDS: HEPARIN SOD 5,000 UNIT/0.5 ML VIAL SQ SCH ×2 (08:36→20:57)
[2022-04-08] MEDS: PANTOprazole 40 MG TAB PO SCH ×2 (08:36→20:56)
[2022-04-08] MEDS: LIDOCAINE 5% 1 PATCH TD SCH (08:36)
[2022-04-08] MEDS: ARIPiprazole 5 MG TAB PO SCH (08:37)
[2022-04-08] MEDS: SIMETHICONE 80 MG CHEW PO PRN (08:38)
[2022-04-08] MEDS: lamoTRIgine 100 MG TAB PO SCH (08:38)
[2022-04-08] MEDS: ESCITALOPRAM OXALATE 20 MG TAB PO SCH (08:38)
[2022-04-08] MEDS: MAGNESIUM OXIDE 400 MG TAB PO SCH ×2 (08:38→20:56)
[2022-04-08] MEDS ORDERED: HYOSCYAMINE SULFATE 0.125 MG TAB SL PRN (10:03)
--- NOTE | 2022-04-08 14:32 | Hospitalist Progress Note ---
Date of Service April 08, 2022 Assessment & Plan (1) Colonic mass: (2) Liver masses: (3) Elevated LFTs: Plan This is a 57-year-old female who presents with 2 months of abdominal pain, ongoing nausea, vomiting, weight loss. She was found to have colon mass with metastases to liver and lungs. 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 GI consulted - Colonoscopy from 04/02 with: - Malignant partially obstructing tumor in the ascending colon. This was found just proximal to the IC valve at 70 cm. Biopsied. Tattooed. Two polyps in the ascending colon. - pathology shows well differentiated adenoca. Surgery - no plan for surg. intervention at this time Oncology - CTA chest without PE, IV Venofer x2, follow up as outpt. w/ Dr. Meyer (has appointment on 04/11/22) Palliative - Roxanol 5mg PO Q2h prn/hold for somnolence or RR<14, order written and will continue IV MS as back up for very severe pain unrelieved by oral meds. Follow up with palliative in outpatient clinic Vascular surgery - consulted for port placement. Scheduled for Apr 09 Dysphagia Esophagitis EGD - Dysphagia likely related to severe esophagitis seen on exam. Start a PPI 40 mg BID taken 30-60 minutes prior to a meal for the next 12 weeks then 40 mg PO daily thereafter. - Typically would recommend a repeat EGD in 8-12 weeks to assess healing however given metastatic colon cancer would recommend discussion of benefit repeating endoscopy given new cancer diagnosis Anemia 2/2 above ongoing illness.Heme/onc following, recommended Venofer x 2 which she has received. Hgb stable . Leukocytosis No sign of infection; blood culture negative. Received 1 week of Zosyn. Mild Hyponatremia Sodium 128 on admission, possibly from nausea and vomiting.Received fluids. Na mildly improved ~129/130, stable Acute kidney injury --> Resolved Creatinine 1.34 on admission; improved. Depression Continue home medications Disposition-patient to have port placement done on Saturday by vascular surgery. Discharge home versus rehab with follow-up with oncology on Saturday. Case management on board. PT OT ordered. DVT prophylaxis:heparin subq on hold for procedure tomorrow. Dispo: Admitted on medical floor Admission and Anticipated Discharge Date Admission Date: March 29, 2022 Subjective Patient seen and examined at bedside. She is comfortable; not in any distress. Reports of cramping abdominal pain. Review of Systems 2 Review of Systems: All systems reviewed & are unremarkable except as noted in Subjective Physical Exam Physical Exam: Gen: WD/WN, NAD, lying in bed, A&Ox3 HEENT: Normocephalic, atraumatic, conjunctivae moist, sclerae anicteric, mucous membranes moist Lung: Clear to Auscultation bilaterally, no wheezes/rales/rhonchi Heart: Regular rate, regular rhythm, no murmurs, rubs, or gallops Abdomen: Distended; nontender. Extremities: no edema Skin: Warm, no rash Results & Data Results & Data ([facility]) Vital Signs (Past 12 Hours) Vital Signs Temp Pulse Resp BP Pulse Ox O2 Del Method 04/08/22 08:00 36.7 C 91 H 18 106/70 98 Room Air
--- NOTE | 2022-04-09 08:23 | History & Physical Bridge Note ---
Date of Service April 09, 2022 History & Physical Bridge Note Patient for insertion of infusaport today. I have discussed the risks options and benefits of the procedure with the patient. The patient understands the risks options and benefits and agrees to the procedure. I have examined the patient, reviewed the History & Physical and in the interval since the performance of the History & Physical I have noted the following changes of clinical significance: no changes noted
[2022-04-09] MEDS ORDERED: ceFAZolin 2,000 MG/15 ML IV PUSH IV ONE (08:29)
[2022-04-09] MEDS ORDERED: MIDAZOLAM HCL 1 MG/ML 2ML VIAL ONE (08:32)
[2022-04-09] MEDS ORDERED: fentaNYL citrate 100 MCG/2 ML VIAL ONE (08:32)
[2022-04-09] MEDS ORDERED: LIDOCAINE 1% LOCAL 20 ML VIAL ONE (08:48)
[2022-04-09] MEDS ORDERED: BUPIVACAINE 0.5 % 5 MG/1 ML MPF 30ML VIAL ONE (08:49)
[2022-04-09] MEDS ORDERED: HEPARIN 100 UNIT/ML 5ML FLUSH ONE ×2 (08:50→23:26)
[2022-04-09] MEDS ORDERED: LIDOCAINE 1%/EPINEPHRINE 1:100,000 50 ML VIAL ONE (08:50)
--- NOTE | 2022-04-09 09:34 | Post Anesthesia Assessment ---
Date of Service April 09, 2022 Post Sedation Assessment Vital Signs Temp Pulse Pulse Pulse Pulse Resp BP 04/09/22 09:30 88 16 04/09/22 09:25 89 16 04/09/22 09:20 96 H 16 04/09/22 09:15 89 16 04/09/22 09:10 90 16 04/09/22 09:05 83 16 04/09/22 09:00 82 16 04/09/22 08:55 83 16 04/09/22 08:52 82 16 04/09/22 08:24 36.8 C 92 H 16 121/78 04/09/22 07:58 36.4 C L 92 H 14 04/09/22 07:07 36.7 C 89 16 116/72 04/08/22 21:04 36.7 C 80 16 109/64 04/08/22 15:01 36.3 C L 89 18 109/72 BP Pulse Ox O2 Del Method O2 Flow Rate 04/09/22 09:30 119/74 97 Oxymask 4 04/09/22 09:25 120/74 98 Oxymask 4 04/09/22 09:20 122/70 98 Oxymask 4 04/09/22 09:15 119/74 98 Oxymask 4 04/09/22 09:10 132/75 99 Oxymask 4 04/09/22 09:05 109/71 98 Oxymask 4 04/09/22 09:00 97/63 L 98 Oxymask 4 04/09/22 08:55 120/70 98 Oxymask 4 04/09/22 08:52 119/72 98 Oxymask 4 04/09/22 08:24 95 Room Air 04/09/22 07:58 120/78 98 Room Air 04/09/22 07:07 97 Room Air 04/08/22 21:04 94 Room Air 04/08/22 15:01 95 Room Air Recovery Score Activity: Moves 4 extremities Respiration: Deep Breath/Cough Circulation: +/-20% PreAnes Value Consciousness: Arouseable (by name) Oxygen Saturation: > 92% On Room Air Post Anesthesia Score: 9 Discharge Sedation Level of Care: Fast Track Phase II Post Sedation Plan On clinical assessment, the patient appears to have tolerated the sedation without complications. Patient is recovering as anticipated. Patient will continue to be monitored by nursing and may be discharged when sedation discharge criteria are met per below protocol. Upon Completions of procedure up to 15 minutes continue every 5 minute vital signs and the P.A.R. score; then discharge to a Phase I or Fast Track to Phase II per the following guidelines: * Discharge Patient to appropriate Phase II area if PAR is 8 or greater or return to pre- procedure baseline. The post - procedure orders will be as directed. * If PAR score is less than 8 or not return to pre-procedure baseline then patient will follow Phase I monitoring till PAR is reached for Phase II. The Phase I may be done in procedure room or may call to secure a Phase I area. * If naloxone or flumazenil are used for reversal, hold in Phase I for continued monitoring from when last reversal dose was given for a minimum of 60 minutes or longer pending the nurse and/or physician discretion of patient condition before discharge to Phase II. Please call the Sedation Physician to re-evaluate and complete post-note for discharge to Phase II area. Do NOT discharge from procedure sedation or Phase 1 until post- sedation evalu ation note is complete by procedure /sedation MD Sedation Discharge Instructions to be given to the patient at discharge to home.
--- NOTE | 2022-04-09 09:34 | Pre Anesthesia Assessment ---
Date of Service April 09, 2022 Pre Sedation Assessment Vital Signs Temp Pulse Pulse Pulse Pulse Resp BP 04/09/22 09:30 88 16 04/09/22 09:25 89 16 04/09/22 09:20 96 H 16 04/09/22 09:15 89 16 04/09/22 09:10 90 16 04/09/22 09:05 83 16 04/09/22 09:00 82 16 04/09/22 08:55 83 16 04/09/22 08:52 82 16 04/09/22 08:24 36.8 C 92 H 16 121/78 04/09/22 07:58 36.4 C L 92 H 14 04/09/22 07:07 36.7 C 89 16 116/72 04/08/22 21:04 36.7 C 80 16 109/64 04/08/22 15:01 36.3 C L 89 18 109/72 BP Pulse Ox O2 Del Method O2 Flow Rate 04/09/22 09:30 119/74 97 Oxymask 4 04/09/22 09:25 120/74 98 Oxymask 4 04/09/22 09:20 122/70 98 Oxymask 4 04/09/22 09:15 119/74 98 Oxymask 4 04/09/22 09:10 132/75 99 Oxymask 4 04/09/22 09:05 109/71 98 Oxymask 4 04/09/22 09:00 97/63 L 98 Oxymask 4 04/09/22 08:55 120/70 98 Oxymask 4 04/09/22 08:52 119/72 98 Oxymask 4 04/09/22 08:24 95 Room Air 04/09/22 07:58 120/78 98 Room Air 04/09/22 07:07 97 Room Air 04/08/22 21:04 94 Room Air 04/08/22 15:01 95 Room Air Cardiovascular RRR, no murmur, no edema Respiratory normal respiratory effort, lungs clear to auscultation Pre-Sedation Airway Assessment Smoking Status: Former smoker Hx Sleep Apnea: No Short, Thick Neck: No Thyromental Distance: > or= 3.5 Finger Breadths Oral Cavity: + WNL Mallampati Class: II ASA: ASA3 NPO Status Date of Last Intake of Fluids: 04/08/22 Time of Last Intake of Fluids: 23:00 Date of Last Intake of Solid Food: 04/08/22 Time of Last Intake of Solid Foods: 23:00 Procedure Planning Contraindications for Sedation: none Current Medications Reviewed: Yes Notes The planned sedation has been discussed with the patient. Informed Consent was obtained. I have identified the patient, determined the appropriateness of sedation and have assessed the patient immediately prior to the procedure. All medicine(s) and interventions are by my order.
--- NOTE | 2022-04-09 09:36 | Operative Report ---
Post Operative Report Pre & Post Diagnosis Operation Date: 04/02/22 16:30 Pre-Op Diagnosis: ABDOMINAL PAIN Post-Op Diagnosis: Ascending Colon Mass and Diverticulosis Operation Date: 04/05/22 16:30 Pre-Op Diagnosis: dysphagia Post-Op Diagnosis: Grade D esophagitis Operation Date: 04/09/22 10:50 Pre-Op Diagnosis: Colon Cancer Post-Op Diagnosis: Colon Cancer I identified the patient and participated in the time-out.: Yes Procedure Operation Date: 04/02/22 16:30 Actual Procedures p Colonoscopy Biopsy Cytology - Flory Barrera, DO Operation Date: 04/05/22 16:30 Actual Procedures p Esophagogastroduodenoscopy - Flory Barrera, DO Operation Date: 04/09/22 10:50 Actual Procedures p Aport Insertion, Right Internal Jugular Approach, Ultrasound Localization of Right Internal Jugular Veing, Fluroscopy for Positioning, Moderate Sedation [id number](Right) - Jim Presley MD Surgeon Jim Presley MD Reimbursement Counselor none Estimated Blood Loss 5 Findings Consistent with Post-Op Diagnosis Specimens none Anesthesia Type RN Sedation Complications none Disposition Accompanied Patient To Recovery: No Disposition: Recovery Room Indications This is a 57-year-old female with metastatic carcinoma in need of an access for chemotherapy. [id number] was recommended. I have discussed the risks options and benefits of the procedure with the patient. The patient understands the risks options and benefits and agrees to the procedure. Description of Procedure Patient was taken to the angio suite and placed in the supine position. The rig ht side of the neck and chest wall were prepped and draped in a sterile manner. The patient was identified and a timeout performed. Local anesthesia was then administered to the appropriate areas of the neck and chest wall. A transverse incision was made below the clavicle on the chest wall and an inferior pocket was make. Bleeding was controlled using cautery. Ultrasound was then used to locate the right internal jugular vein. The vein compressed easily, had no filing defects, and was patent. The vein was then punctured under direct ultrasound imaging. A guidewire was then passed centrally under fluoroscopic imaging. The port catheter was then passed from the pocket incision to the puncture site in the neck using the tunneling device. The peel away sheath was inserted. The catheter was then beveled at the tip and inserted through the peel away sheath. The tip was then positioned in the distal SCV. It was then attached to the port and the catheter clamp applied. The port was then placed in the pocket and sutured to the chest fascia using prolene suture. The puncture site was then closed using a 4-0 Vicryl subcuticular suture. The chest incision was closed using a 3-0 Vicryl suture for the subcutaneous layer and a 4-0 Vicryl subcuticular stitch for the skin layer. Dermabond was used for a dressing on the puncture site and the incision. The port aspirated and flushed easily and was then flushed with heparinized saline. The patient left the operation room in satisfactory condition and tolerated the procedure well. All needle and sponge counts were correct at the end of the procedure. I attest to the content of the Intraoperative Record and any orders documented therein. Any exceptions are noted below.
[2022-04-09] MEDS ORDERED: ceFAZolin 2000MG 2,000 MG/15 ML SYR IV ONE (10:00)
[2022-04-09] MEDS: LIDOCAINE 5% 1 PATCH TD SCH (10:24)
[2022-04-09] MEDS: HEPARIN SOD 5,000 UNIT/0.5 ML VIAL SQ SCH ×2 (10:26→20:46)
[2022-04-09] MEDS: MAGNESIUM OXIDE 400 MG TAB PO SCH ×2 (10:29→20:46)
[2022-04-09] MEDS: ARIPiprazole 5 MG TAB PO SCH (10:29)
[2022-04-09] MEDS: SIMETHICONE 80 MG CHEW PO PRN (10:30)
[2022-04-09] MEDS: lamoTRIgine 100 MG TAB PO SCH (10:31)
[2022-04-09] MEDS: ESCITALOPRAM OXALATE 20 MG TAB PO SCH (10:31)
[2022-04-09] MEDS: PANTOprazole 40 MG TAB PO SCH ×2 (10:32→20:46)
[2022-04-09] MEDS: MoRPHine SULFATE 5 MG/0.25 ML UDP PO PRN (10:40)
[2022-04-09 12:22] LABS: BUN Creatinine Ratio 18.9 (10-20); Calcium 8.2 mg/dl (8.5-10.1); Creatinine Clr Calc Pharmacy 60.2 ml/min; Est GFR (African American) 104.2 ml/min; Est GFR (Non-African American) 89.9 ml/min; Potassium 4.5 mmol/L (3.5-5.1)
[2022-04-09] MEDS: MoRPHine SULFATE 4 MG/ML 1 ML CARP\\VIAL IV PRN ×4 (13:43→23:28)
[2022-04-09] MEDS: POLYETHYLENE (MIRALAX) 17 GM PACK PO SCH (16:17)
--- NOTE | 2022-04-09 21:55 | Hospitalist Progress Note ---
Date of Service April 09, 2022 Assessment & Plan (1) Colonic mass: (2) Liver masses: (3) Elevated LFTs: Plan This is a 57-year-old female who presents with 2 months of abdominal pain, ongoing nausea, vomiting, weight loss. She was found to have colon mass with metastases to liver and lungs. 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 GI consulted - Colonoscopy from 04/02 with: - Malignant partially obstructing tumor in the ascending colon. This was found just proximal to the IC valve at 70 cm. Biopsied. Tattooed. Two polyps in the ascending colon. - pathology shows well differentiated adenoca. Surgery - no plan for surg. intervention at this time Oncology - CTA chest without PE, IV Venofer x2, follow up as outpt. w/ Dr. Meyer (has appointment on 04/11/22) Palliative - Roxanol 5mg PO Q2h prn/hold for somnolence or RR<14, order written and will continue IV MS as back up for very severe pain unrelieved by oral meds. Follow up with palliative in outpatient clinic Vascular surgery - S/P port placement done today by Dr. Presley I reached out to Dr. Meyer if he can meet to family to discuss about options that can help the family and patient to make a decision about chemo or hospice Dr. Meyer said that he can meet with the family tomorrow after 6PM Dysphagia Esophagitis EGD - Dysphagia likely related to severe esophagitis seen on exam. Start a PPI 40 mg BID taken 30-60 minutes prior to a meal for the next 12 weeks then 40 mg PO daily thereafter. - Typically would recommend a repeat EGD in 8-12 weeks to assess healing however given metastatic colon cancer would recommend discussion of benefit repeating endoscopy given new cancer diagnosis Anemia 2/2 above ongoing illness.Heme/onc following, recommended Venofer x 2 which she has received. Hgb stable . Leukocytosis No sign of infection; blood culture negative. Received 1 week of Zosyn. Mild Hyponatremia Sodium 128 on admission, possibly from nausea and vomiting.Received fluids. Na mildly improved ~129/130, stable Acute kidney injury --> Resolved Creatinine 1.34 on admission; improved. Depression Continue home medications Disposition-patient to have port placement done on Saturday by vascular surgery. Discharge home versus rehab with follow-up with oncology on Saturday. Case management on board. PT OT ordered. DVT prophylaxis:heparin subq on hold for procedure today Dispo: Will discharge once medically stable Admission and Anticipated Discharge Date Admission Date: March 29, 2022 Subjective Pt was seen and examined for follow up Lying in bed with no acute distress with family members Pt said that she feels a little better today She gave me permission to speak to her family ( Mother, dad, 2 sisters) Discussed her cancer diagnosis and overall prognosis of her cancer in details I texted Oncology Dr. Meyer and he is planing to speak to family tomorrow after 6Pm today Review of Systems Review of Systems: All systems reviewed & are unremarkable except as noted in Subjective Physical Exam Physical Exam: General- No acute distress Head- atraumatic Eyes- PERRL, EOMI, ENT- oropharynx clear Neck- supple, no JVD Lungs- clear to auscultation Heart- regular rhythm; no murmur Abdomen- normal bowel sounds, soft, nontender Extremities- no calf tenderness, +edema Neuro- alert, oriented x 3; PERRL, EOMI; no facial palsy; no dysarthria Skin- warm & dry Results & Data Results & [facility] ([facility]) Vital Signs (Past 12 Hours) Vital Signs Temp Pulse Resp BP Pulse Ox O2 Del Method 04/09/22 21:26 36.8 C 81 16 103/64 95 Room Air 04/09/22 20:35 36.6 C 81 16 112/65 96 Room Air 04/09/22 19:22 36.7 C 75 16 97/62 L 95 Room Air
[2022-04-10] MEDS: MoRPHine SULFATE 4 MG/ML 1 ML CARP\\VIAL IV PRN ×3 (05:27→20:48)
[2022-04-10] MEDS: HEPARIN 100 UNIT/ML 5ML FLUSH FLUSH PRN ×2 (05:28→20:49)
[2022-04-10] MEDS: LIDOCAINE 5% 1 PATCH TD SCH (09:25)
[2022-04-10] MEDS: HEPARIN SOD 5,000 UNIT/0.5 ML VIAL SQ SCH ×2 (09:26→20:49)
[2022-04-10] MEDS: PANTOprazole 40 MG TAB PO SCH ×2 (09:28→20:49)
[2022-04-10] MEDS: lamoTRIgine 100 MG TAB PO SCH (09:29)
[2022-04-10] MEDS: SIMETHICONE 80 MG CHEW PO PRN (09:29)
[2022-04-10] MEDS: POLYETHYLENE (MIRALAX) 17 GM PACK PO SCH (09:30)
[2022-04-10] MEDS: ARIPiprazole 5 MG TAB PO SCH (09:30)
[2022-04-10] MEDS: ESCITALOPRAM OXALATE 20 MG TAB PO SCH (09:30)
[2022-04-10] MEDS: MAGNESIUM OXIDE 400 MG TAB PO SCH ×2 (10:32→20:49)
[2022-04-10 10:37] LABS: Hematocrit (blood only) 25.5 % (34.1-44.9); Mean Corpuscular Hemoglobin 27.3 pg (25.0-34.0); Mean Corpuscular Hgb Conc 31.4 g/dL (32.0-36.0); Mean Platelet Volume 9.5 fL (9.4-12.3); Platelet Count 340 K/uL (130-400); RDW Coefficient of Variation 21.9 % (11.5-14.5); Red Blood Count 2.93 M/uL (3.93-5.22); White Blood Count 16.37 K/ul (4.8-10.8)
[2022-04-10 11:02] LABS: BUN Creatinine Ratio 18.1 (10-20); Calcium 8.4 mg/dl (8.5-10.1); Creatinine Clr Calc Pharmacy 42.5 ml/min; Est GFR (African American) 68.3 ml/min; Est GFR (Non-African American) 58.9 ml/min; Potassium 4.6 mmol/L (3.5-5.1)
--- NOTE | 2022-04-10 23:55 | Hospitalist Progress Note ---
Date of Service April 10, 2022 Assessment & Plan (1) Colonic mass: (2) Liver masses: (3) Elevated LFTs: Plan This is a 57-year-old female who presents with 2 months of abdominal pain, ongoing nausea, vomiting, weight loss. She was found to have colon mass with metastases to liver and lungs. 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 GI consulted - Colonoscopy from 04/02 with: - Malignant partially obstructing tumor in the ascending colon. This was found just proximal to the IC valve at 70 cm. Biopsied. Tattooed. Two polyps in the ascending colon. - pathology shows well differentiated adenoca. Surgery - no plan for surg. intervention at this time Oncology - CTA chest without PE, IV Venofer x2, follow up as outpt. w/ Dr. Meyer (has appointment on 04/11/22) Palliative - Roxanol 5mg PO Q2h prn/hold for somnolence or RR<14, order written and will continue IV MS as back up for very severe pain unrelieved by oral meds. Follow up with palliative in outpatient clinic Vascular surgery - S/P port placement done today by Dr. Presley I reached out to Dr. Meyer if he can meet to family to discuss about options that can help the family and patient to make a decision about chemo or hospice Dr. Meyer said that he can meet with the family today after 6PM Dysphagia Esophagitis EGD - Dysphagia likely related to severe esophagitis seen on exam. Start a PPI 40 mg BID taken 30-60 minutes prior to a meal for the next 12 weeks then 40 mg PO daily thereafter. - Typically would recommend a repeat EGD in 8-12 weeks to assess healing however given metastatic colon cancer would recommend discussion of benefit repeating endoscopy given new cancer diagnosis Anemia 2/2 above ongoing illness.Heme/onc following, recommended Venofer x 2 which she has received. Hgb stable @ 8 Leukocytosis No sign of infection; blood culture negative. Received 1 week of Zosyn. Mild Hyponatremia Sodium 128 on admission, possibly from nausea and vomiting.Received fluids. Na mildly improved ~129/130, stable Acute kidney injury --> Creatinine 1.34 on admission Resolved Depression Continue home medications Disposition-patient to have port placement done on Saturday by vascular surgery. Discharge home versus rehab with follow-up with oncology on Saturday. Case management on board. PT OT ordered. DVT prophylaxis:heparin subq resumed Dispo: Will discharge once medically stable Admission and Anticipated Discharge Date Admission Date: March 29, 2022 Subjective Pt was seen and examined for follow up Lying in bed with no acute distress with sister and mother at bedside Pt said that she feels a little better today She said last night she was able to go outside with her family She felt slightly better compared to yesterday Spoke to family to let them know Dr. Meyer will stop by after 6 PM to have a meeting with family I texted Dr. Araujo to let them know that family will be here waiting for him after 6 PM Denies any chest pain, palpitation, dizziness, and fever. Review of Systems Review of Systems: All systems reviewed & are unremarkable except as noted in Subjective Physical Exam Physical Exam: General- No acute distress Head- atraumatic Eyes- PERRL, EOMI, ENT- oropharynx clear Neck- supple, no JVD Lungs- clear to auscultation Heart- regular rhythm; no murmur Abdomen- normal bowel sounds, soft, nontender Extremities- no calf tenderness, +edema Neuro- alert, oriented x 3; PERRL, EOMI; no facial palsy; no dysarthria Skin- warm & dry Results & Data Results & Data ([facility]) Vital Signs (Past 12 Hours) Vital Signs Temp Pulse Resp BP Pulse Ox O2 Del Method 04/10/22 22:08 36.8 C 91 H 16 107/66 94 Room Air 04/10/22 14:52 36.8 C 90 18 109/69 95 Room Air
[2022-04-11] MEDS: HEPARIN 100 UNIT/ML 5ML FLUSH FLUSH PRN ×2 (00:27→04:56)
[2022-04-11] MEDS: MoRPHine SULFATE 4 MG/ML 1 ML CARP\\VIAL IV PRN ×4 (00:27→17:31)
--- NOTE | 2022-04-11 08:20 | Hospitalist Progress Note ---
Date of Service April 11, 2022 Assessment & Plan (1) Colonic mass: (2) Liver masses: (3) Elevated LFTs: Plan This is a 57-year-old female who presents with abdominal pain, ongoing nausea, vomiting, weight loss. She was found to have colon mass with metastases to liver and lungs. 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 GI consulted - Colonoscopy from 04/02 with: - Malignant partially obstructing tumor in the ascending colon. This was found just proximal to the IC valve at 70 cm. Biopsied. Tattooed. Two polyps in the ascending colon. - pathology shows well differentiated adenocarcinoma. Surgery - no plan for surg. intervention at this time Oncology - CTA chest without PE, IV Venofer x2, follow up as outpt. w/ Dr. Meyer Palliative - Roxanol 5mg PO Q2h prn/hold for somnolence or RR<14, order written and will continue IV MS as back up for very severe pain unrelieved by oral meds. Follow up with palliative in outpatient clinic Vascular surgery - S/P port placement by Dr. Presley Dysphagia Esophagitis EGD - Dysphagia likely related to severe esophagitis seen on exam. Start a PPI 40 mg BID taken 30-60 minutes prior to a meal for the next 12 weeks then 40 mg PO daily thereafter. - Typically would recommend a repeat EGD in 8-12 weeks to assess healing however given metastatic colon cancer would recommend discussion of benefit repeating endoscopy given new cancer diagnosis Anemia 2/2 above ongoing illness.Heme/onc following, recommended Venofer x 2 which she has received. Hgb stable @ 8 Another Venofer given 04/11 - discussed w/ Dr. Meyer Leukocytosis No sign of infection; blood culture negative. Received 1 week of Zosyn. Mild Hyponatremia Sodium 128 on admission, possibly from nausea and vomiting.Received fluids. Na mildly improved ~129/130, stable Acute kidney injury --> Creatinine 1.34 on admission Resolved Depression Continue home medications Disposition- Discharge home versus rehab with follow-up with oncology. Case management involved. PT OT ordered. DVT prophylaxis:heparin subq Admission and Anticipated Discharge Date Admission Date: March 29, 2022 Subjective Patient seen in follow-up of nausea vomiting, new finding of colon mass, with metastases to liver, lungs Lying in bed in no acute distress with family at the bedside No acute events overnight Dr. Meyeroncologmiles, met with the family last evening Recommended Venofer, MRI brain, which was ordered Denies any chest pain, palpitation, dizziness, and fever. Review of Systems Review of Systems: All systems reviewed & are unremarkable except as noted in Subjective Physical Exam Physical Exam: GENERAL: The patient is of moderate build, not in acute distress. HEENT: Pupils equal, round and reactive to light. EOMI. Oral mucosa moist. NECK: No JVD, no neck masses. CARDIOVASCULAR: S1 and S2 heard. Regular rate and rhythm. No murmur, no gallop. RESPIRATORY: Normal AP diameter. No accessory muscle use. No wheezing, no crackles. ABDOMEN: Soft, bowel sounds present.+distention, + mass at RUQ/epigastric region and RLQ. No guarding, no rigidity. NEURO:Awake alert oriented, answering questions appropriately, no facial asymmetry, moves extremities EXTREMITIES: Pedal edema present, no erythema seen. Results & Data Results & Data ([facility]) Vital Signs (Past 12 Hours) Vital Signs Temp Pulse Pulse Resp BP Pulse Ox O2 Del Method 04/11/22 07:23 36.7 C 92 H 16 108/68 94 Room Air 04/10/22 20:55 Room Air 04/11/22 00:26 89 16 116/69 94 Room Air 04/10/22 22:08 36.8 C 91 H 16 107/66 94 Room Air Laboratory Results 04/11/22 04/11/22 04/11/22 Range/Units 09:45 09:45 09:45 WBC (4.8-10.8) K/ul RBC (3.93-5.22) M/uL Hgb (12.0-16.0) g/dl Hct (34.1-44.9) % MCV (80.0-100.0) fL MCH (25.0-34.0) pg MCHC (32.0-36.0) g/dL RDW Std Deviation (36.4-46.3) fL RDW Coeff of Josef (11.5-14.5) % Plt Count (130-400) K/uL MPV (9.4-12.3) fL Reticulocyte % (Auto) 4.0 H Reticulocyte # 0.12 H Haptoglobin Pending Sodium (136-145) mmol/L Potassium (3.5-5.1) mmol/L Chloride (98-107) mmol/L Carbon Dioxide (21-32) mmol/L Anion Gap (3-11) BUN (6-23) mg/dl Creatinine (0.6-1.2) mg/dl Est Cr Clr Drug Dosing ml/min Est GFR ( Amer) ml/min Est GFR (Non-Af Amer) ml/min BUN/Creatinine Ratio (10-20) Glucose (70-99(Fasting)) mg/dl Calcium (8.5-10.1) mg/dl Iron Cancelled TIBC Cancelled Unsaturated IBC Cancelled Transferrin % Sat Cancelled Ferritin (8-388) ng/ml Total Bilirubin (0.2-1.0) mg/dl AST (13-39) U/L ALT (7-52) U/L Alkaline Phosphatase (34-104) U/L Total Protein (6.0-8.3) gm/dl Albumin (3.4-5.0) gm/dl Globulin (2.5-4.0) gm/dl Albumin/Globulin Ratio (0.9-2) 04/11/22 04/11/22 Range/Units 09:45 09:45 WBC 14.89 H (4.8-10.8) K/ul RBC 2.97 L (3.93-5.22) M/uL Hgb 8.1 L (12.0-16.0) g/dl Hct 26.1 L (34.1-44.9) % MCV 87.9 (80.0-100.0) fL MCH 27.3 (25.0-34.0) pg MCHC 31.0 L (32.0-36.0) g/dL RDW Std Deviation 67.7 H (36.4-46.3) fL RDW Coeff of Josef 21.3 H (11.5-14.5) % Plt Count 325 (130-400) K/uL MPV 10.0 (9.4-12.3) fL Reticulocyte % (Auto) Cancelled Reticulocyte # Cancelled Haptoglobin Sodium 132 L (136-145) mmol/L Potassium 4.3 (3.5-5.1) mmol/L Chloride 102 (98-107) mmol/L Carbon Dioxide 22 (21-32) mmol/L Anion Gap 8 (3-11) BUN 21 (6-23) mg/dl Creatinine 0.99 (0.6-1.2) mg/dl Est Cr Clr Drug Dosing 45.0 ml/min Est GFR ( Amer) 73.3 ml/min Est GFR (Non-Af Amer) 63.3 ml/min BUN/Creatinine Ratio 21.2 H (10-20) Glucose 99 (70-99(Fasting)) mg/dl Calcium 8.4 L (8.5-10.1) mg/dl Iron 27 L TIBC 121 L Unsaturated IBC 94 L Transferrin % Sat 22 Ferritin 2021.0 H (8-388) ng/ml Total Bilirubin 5.6 H (0.2-1.0) mg/dl AST 114 H (13-39) U/L ALT 38 (7-52) U/L Alkaline Phosphatase 878 H (34-104) U/L Total Protein 5.8 L (6.0-8.3) gm/dl Albumin 2.2 L (3.4-5.0) gm/dl Globulin 3.6 (2.5-4.0) gm/dl Albumin/Globulin Ratio 0.6 L (0.9-2) Medications Administered Current Inpatient Medications Aripiprazole (Aripiprazole 5 Mg Tab) 7.5 mg PO DAILY LATESHA Stop: 05/01/22 08:59 Last Admin: 04/11/22 08:53 Dose: 7.5 mg Escitalopram Oxalate (Escitalopram Oxalate 20 Mg Tab) 20 mg PO DAILY LATESHA Stop: 04/29/22 08:59 Last Admin: 04/11/22 08:54 Dose: 20 mg Heparin Sodium (Porcine) (Heparin Sod 5,000 Unit/0.5 Ml Vial) 5,000 units SQ Q12 LATESHA Stop: 05/05/22 20:59 Last Admin: 04/11/22 08:47 Dose: 5,000 units Heparin Sodium (Porcine) (Heparin 100 Unit/Ml 5ml Flush) 5 ml FLUSH PRN PRN PRN Reason: Flush Stop: 05/09/22 23:03 Last Admin: 04/11/22 04:56 Dose: 5 ml Hyoscyamine (Hyoscyamine Sulfate 0.125 Mg Tab) 0.125 mg SL Q8H PRN PRN Reason: abdominal cramping Stop: 05/08/22 10:02 Lamotrigine (Lamotrigine 100 Mg Tab) 100 mg PO DAILY [facility] Stop: 04/29/22 08:59 Last Admin: 04/11/22 08:54 Dose: 100 mg Lidocaine (Lidocaine 5% 1 Patch) 1 patch TD QAM LATESHA Stop: 05/05/22 14:29 Last Admin: 04/11/22 08:50 Dose: 1 patch Magnesium Oxide (Magnesium Oxide 400 Mg Tab) 400 mg PO BID [facility] Stop: 05/03/22 21:29 Last Admin: 04/11/22 08:54 Dose: 400 mg Miscellaneous (Remove Lidoderm Patch) 1 each N/A DAILY@2100 [facility] Stop: 05/05/22 20:59 Last Admin: 04/10/22 20:49 Dose: 1 each Morphine Sulfate (Morphine Sulfate 5 Mg/0.25 Ml Udp) 5 mg PO Q2H PRN PRN Reason: Pain, dyspnea Stop: 04/20/22 12:05 Last Admin: 04/09/22 10:40 Dose: 5 mg Morphine Sulfate (Morphine Sulfate 4 Mg/Ml 1 Ml Carp\Vial) 4 mg IV Q2H PRN PRN Reason: Pain Stop: 04/12/22 21:38 Last Admin: 04/11/22 17:31 Dose: 4 mg Ondansetron HCl (Ondansetron Inj 2 Mg/Ml 2 Ml Vial) 4 mg IV Q6H PRN PRN Reason: Nausea Stop: 04/28/22 21:38 Last Admin: 04/01/22 17:56 Dose: 4 mg Pantoprazole Sodium (Pantoprazole 40 Mg Tab) 40 mg PO BID [facility] Stop: 05/05/22 20:59 Last Admin: 04/11/22 08:52 Dose: 40 mg Polyethylene Glycol (Polyethylene (Miralax) 17 Gm Pack) 17 gm PO DAILY LATESHA Stop: 05/05/22 08:59 Last Admin: 04/11/22 08:50 Dose: 17 gm Simethicone (Simethicone 80 Mg Chew) 80 mg PO Q6H PRN PRN Reason: bloating, doiscomfort Stop: 05/05/22 14:23 Last Admin: 04/11/22 08:52 Dose: 80 mg
[2022-04-11] MEDS: HEPARIN SOD 5,000 UNIT/0.5 ML VIAL SQ SCH ×2 (08:47→20:26)
[2022-04-11] MEDS: POLYETHYLENE (MIRALAX) 17 GM PACK PO SCH (08:50)
[2022-04-11] MEDS: LIDOCAINE 5% 1 PATCH TD SCH (08:50)
[2022-04-11] MEDS: PANTOprazole 40 MG TAB PO SCH ×2 (08:52→20:26)
[2022-04-11] MEDS: SIMETHICONE 80 MG CHEW PO PRN (08:52)
[2022-04-11] MEDS: ARIPiprazole 5 MG TAB PO SCH (08:53)
[2022-04-11] MEDS: lamoTRIgine 100 MG TAB PO SCH (08:54)
[2022-04-11] MEDS: ESCITALOPRAM OXALATE 20 MG TAB PO SCH (08:54)
[2022-04-11] MEDS: MAGNESIUM OXIDE 400 MG TAB PO SCH ×2 (08:54→20:26)
[2022-04-11] MEDS ORDERED: IRON SUCROSE 300 MG in SODIUM CHLORIDE 0.9% 250 ML IV ONE (09:00)
[2022-04-11 10:04] LABS: Hematocrit (blood only) 26.1 % (34.1-44.9); Hemoglobin 8.1 g/dl (12.0-16.0); Mean Corpuscular Hemoglobin 27.3 pg (25.0-34.0); Mean Corpuscular Volume 87.9 fL (80.0-100.0); Platelet Count 325 K/uL (130-400); RDW Coefficient of Variation 21.3 % (11.5-14.5); RDW Standard Deviation 67.7 fL (36.4-46.3); Red Blood Count 2.97 M/uL (3.93-5.22); Reticulocytes # 0.12 10^6/uL (0.02-0.10); White Blood Count 14.89 K/ul (4.8-10.8)
[2022-04-11 10:29] LABS: Albumin Globulin Ratio 0.6 (0.9-2); Albumin Level 2.2 gm/dl (3.4-5.0); BUN Creatinine Ratio 21.2 (10-20); Bilirubin,Total 5.6 mg/dl (0.2-1.0); Calcium 8.4 mg/dl (8.5-10.1); Est GFR (African American) 73.3 ml/min; Est GFR (Non-African American) 63.3 ml/min; Globulin 3.6 gm/dl (2.5-4.0); Potassium 4.3 mmol/L (3.5-5.1); Total Protein 5.8 gm/dl (6.0-8.3)
[2022-04-11] MEDS ORDERED: GADOBUTROL 65ML VIAL IV ONE (13:02)
--- NOTE | 2022-04-11 13:49 | Magnetic Resonance Report ---
MR brain wo/w con CLINICAL HISTORY: r/o mets (pt w/ new dg.colon cancer) TECHNIQUE: Multiplanar and multisequence MR images of the brain were obtained prior to and following administration of gadolinium contrast. Comparison: None available at the time of this dictation. FINDINGS: No abnormal restricted diffusion is identified. Foci of T2 and FLAIR hyperintensity are noted in the paraventricular areas consistent with chronic small vessel ischemic disease. The ventricular system i s normal in appearance. There is a punctate focus of enhancement in the right cerebellum (series 10 i mage 6) without associated edema on T2 series. No additional enhancing lesions are seen. There is no mass effect or midline shift. There is no evidence of acute intraparenchymal hemorrhage. No extra axi al fluid collections are seen. The corpus callosum, pituitary gland, and cerebellar tonsils appear gr ossly unremarkable. Flow voids of the major intracranial arterial vessels are identified. The imaged portions of the para nasal sinuses, mastoid air cells, and orbits are unremarkable. IMPRESSION: Multiple T2 hyperintensities are seen which likely reflect age-related demyelinating changes. There i s a punctate focus of enhancement in the right cerebellum without associated edema which is unlikely to represent a metastasis. ACT 112: Negative or not required by law. Electronically signed by: Clint Vargas M.D. 04/11/2022 1:47 PM
--- NOTE | 2022-04-11 14:51 | Palliative Care Progress Note ---
Date of Service April 11, 2022 Assessment & Plan (1) Palliative care encounter: Admission and Anticipated Discharge Date Admission Date: March 29, 2022 Subjective Attempted to see patient today he was off the floor for further imaging. A tentative discharge is planned. I will see her in outpatient palliative medicine clinic. Patient was not seen and no charge has been submitted. Results & Data ([facility]) Vital Signs (Past 12 Hours) Vital Signs Temp Pulse Resp BP Pulse Ox O2 Del Method 04/11/22 07:23 36.7 C 92 H 16 108/68 94 Room Air PG Care Time/CCT Total # of Minutes Spent Total Time Spent with Patient: Total time spent is greater than 50% in coordination of care (as documented) at patient's floor/unit and/or counseling patient: Coding Level of Care Code Established Pt None Patient Type Established Diagnoses Palliative care encounter Z51.5
[2022-04-11] MEDS: MoRPHine SULFATE 5 MG/0.25 ML UDP PO PRN (20:35)
[2022-04-12] MEDS: MoRPHine SULFATE 5 MG/0.25 ML UDP PO PRN ×3 (05:15→20:01)
--- NOTE | 2022-04-12 08:03 | Hospitalist Progress Note ---
Date of Service April 12, 2022 Assessment & Plan (1) Colonic mass: (2) Liver masses: (3) Elevated LFTs: Plan This is a 57-year-old female who presents with abdominal pain, ongoing nausea, vomiting, weight loss. She was found to have colon mass with metastases to liver and lungs. 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 GI consulted - Colonoscopy from 04/02 with: - Malignant partially obstructing tumor in the ascending colon. This was found just proximal to the IC valve at 70 cm. Biopsied. Tattooed. Two polyps in the ascending colon. - pathology shows well differentiated adenocarcinoma. Surgery - no plan for surg. intervention at this time Oncology - CTA chest without PE, IV Venofer x2, follow up as outpt. w/ Dr. Meyer Palliative - Roxanol 5mg PO Q2h prn/hold for somnolence or RR<14, order written and will continue IV MS as back up for very severe pain unrelieved by oral meds. Follow up with palliative in outpatient clinic Vascular surgery - S/P port placement by Dr. Presley Dysphagia Esophagitis EGD - Dysphagia likely related to severe esophagitis seen on exam. Start a PPI 40 mg BID taken 30-60 minutes prior to a meal for the next 12 weeks then 40 mg PO daily thereafter. - Typically would recommend a repeat EGD in 8-12 weeks to assess healing however given metastatic colon cancer would recommend discussion of benefit repeating endoscopy given new cancer diagnosis Anemia 2/2 above ongoing illness.Heme/onc following, recommended Venofer x 2 which she has received. Hgb stable @ 8 Another Venofer given 04/11 - discussed w/ Dr. Meyer Leukocytosis No sign of infection; blood culture negative. Received 1 week of Zosyn. Mild Hyponatremia Sodium 128 on admission, possibly from nausea and vomiting.Received fluids. Na mildly improved ~129/130, stable Acute kidney injury --> Creatinine 1.34 on admission Resolved Depression Continue home medications Disposition- Discharge home versus rehab with follow-up with oncology. Case management involved. PT OT ordered. DVT prophylaxis:heparin subq Admission and Anticipated Discharge Date Admission Date: March 29, 2022 Subjective Patient seen in follow-up of nausea vomiting, new finding of colon mass, with metastases to liver, lungs Lying in bed in no acute distress No acute events overnight Dr. Meyeroncology, met with the pt last evening I discussed w/ Dr. Meyer this AM - ok for DC to rehab before starting chemo Denies any chest pain, shortness of breath, palpitations, dizziness, or fever. Review of Systems Review of Systems: All systems reviewed & are unremarkable except as noted in Subjective Physical Exam Physical Exam: GENERAL: The patient is of moderate build, not in acute distress. HEENT: Pupils equal, round and reactive to light. EOMI. Oral mucosa moist. NECK: No JVD, no neck masses. CARDIOVASCULAR: S1 and S2 heard. Regular rate and rhythm. No murmur, no gallop. RESPIRATORY: Normal AP diameter. No accessory muscle use. No wheezing, no crackles. ABDOMEN: Soft, bowel sounds present.+distention, + mass at RUQ/epigastric region and RLQ. No guarding, no rigidity. NEURO:Awake alert oriented, answering questions appropriately, no facial asymmetry, moves extremities EXTREMITIES: Pedal edema present, no erythema seen. Results & Data Results & Data ([facility]) Vital Signs (Past 12 Hours) Vital Signs Temp Pulse Resp BP Pulse Ox O2 Del Method 04/12/22 07:39 36.4 C L 94 H 18 99/63 L 95 Room Air 04/11/22 22:25 36.7 C 90 16 105/65 94 Room Air Medications Administered Current Inpatient Medications Aripiprazole (Aripiprazole 5 Mg Tab) 7.5 mg PO DAILY LATESHA Stop: 05/01/22 08:59 Last Admin: 04/12/22 09:54 Dose: 7.5 mg Docusate Sodium (Docusate Sodium 100 Mg Cap) 100 mg PO BID LATESHA Stop: 05/12/22 13:39 Escitalopram Oxalate (Escitalopram Oxalate 20 Mg Tab) 20 mg PO DAILY LATESHA Stop: 04/29/22 08:59 Last Admin: 04/12/22 09:55 Dose: 20 mg Heparin Sodium (Porcine) (Heparin Sod 5,000 Unit/0.5 Ml Vial) 5,000 units SQ Q12 LATESHA Stop: 05/05/22 20:59 Last Admin: 04/12/22 09:55 Dose: 5,000 units Heparin Sodium (Porcine) (Heparin 100 Unit/Ml 5ml Flush) 5 ml FLUSH PRN PRN PRN Reason: Flush Stop: 05/09/22 23:03 Last Admin: 04/11/22 04:56 Dose: 5 ml Hyoscyamine (Hyoscyamine Sulfate 0.125 Mg Tab) 0.125 mg SL Q8H PRN PRN Reason: abdominal cramping Stop: 05/08/22 10:02 Lamotrigine (Lamotrigine 100 Mg Tab) 100 mg PO DAILY LATESHA Stop: 04/29/22 08:59 Last Admin: 04/12/22 09:55 Dose: 100 mg Lidocaine (Lidocaine 5% 1 Patch) 1 patch TD QAM LATESHA Stop: 05/05/22 14:29 Last Admin: 04/12/22 09:54 Dose: 1 patch Magnesium Oxide (Magnesium Oxide 400 Mg Tab) 400 mg PO BID LATESHA Stop: 05/03/22 21:29 Last Admin: 04/12/22 09:55 Dose: 400 mg Miscellaneous (Remove Lidoderm Patch) 1 each N/A DAILY@2100 [facility] Stop: 05/05/22 20:59 Last Admin: 04/11/22 20:26 Dose: 1 each Morphine Sulfate (Morphine Sulfate 5 Mg/0.25 Ml Udp) 5 mg PO Q2H PRN PRN Reason: Pain, dyspnea Stop: 04/20/22 12:05 Last Admin: 04/12/22 08:03 Dose: 5 mg Morphine Sulfate (Morphine Sulfate 4 Mg/Ml 1 Ml Carp\Vial) 4 mg IV Q2H PRN PRN Reason: Pain Stop: 04/12/22 21:38 Last Admin: 04/11/22 17:31 Dose: 4 mg Ondansetron HCl (Ondansetron Inj 2 Mg/Ml 2 Ml Vial) 4 mg IV Q6H PRN PRN Reason: Nausea Stop: 04/28/22 21:38 Last Admin: 04/01/22 17:56 Dose: 4 mg Pantoprazole Sodium (Pantoprazole 40 Mg Tab) 40 mg PO BID LATESHA Stop: 05/05/22 20:59 Last Admin: 04/12/22 09:55 Dose: 40 mg Polyethylene Glycol (Polyethylene (Miralax) 17 Gm Pack) 17 gm PO DAILY LATESHA Stop: 05/05/22 08:59 Last Admin: 04/12/22 09:54 Dose: 17 gm Simethicone (Simethicone 80 Mg Chew) 80 mg PO Q6H PRN PRN Reason: bloating, doiscomfort Stop: 05/05/22 14:23 Last Admin: 04/11/22 08:52 Dose: 80 mg
[2022-04-12] MEDS: ARIPiprazole 5 MG TAB PO SCH (09:54)
[2022-04-12] MEDS: LIDOCAINE 5% 1 PATCH TD SCH (09:54)
[2022-04-12] MEDS: POLYETHYLENE (MIRALAX) 17 GM PACK PO SCH (09:54)
[2022-04-12] MEDS: HEPARIN SOD 5,000 UNIT/0.5 ML VIAL SQ SCH ×2 (09:55→20:41)
[2022-04-12] MEDS: lamoTRIgine 100 MG TAB PO SCH (09:55)
[2022-04-12] MEDS: ESCITALOPRAM OXALATE 20 MG TAB PO SCH (09:55)
[2022-04-12] MEDS: PANTOprazole 40 MG TAB PO SCH ×2 (09:55→20:42)
[2022-04-12] MEDS: MAGNESIUM OXIDE 400 MG TAB PO SCH ×2 (09:55→20:42)
[2022-04-12] MEDS: DOCUSATE SODIUM 100 MG CAP PO SCH ×2 (14:48→20:41)
--- NOTE | 2022-04-12 15:37 | Palliative Care Progress Note ---
Date of Service April 12, 2022 Assessment & Plan (1) Palliative care encounter: Plan: Stage IV met adeno ca colon, s/p port awaiting dc to rehab at [facility]/ aware extended d/w pt, her mom and her sister. all questions answered to their satisfaction. we reviewed the overall goal is to optimize her conditioning then trial of chemo. she is aware she can stop if it is not being tolerated. family acknowledges this is not curable cancer, they share a common goal of working together to have as much time as they can but balanced with QOL and reduced symptom burden. They are extremely appreciative of all the medical teams and providers caring for her. (2) Cancer related pain: Plan: Continue Roxanol 5mg PO Q2h prn/hold for somnolence or RR<14, (3) Advanced care planning/counseling discussion: Plan: Rehab then home, will have OP onc follow up after rehab and hoping to start chemo soon thereafter. (4) Adenocarcinoma, colon: (5) Cachexia: Plan: Supplemental nutrition modalities reviewed with pt and reccs made for methods to amplify nutrition. Plan Plan as outlined above. I will follow pt in outpatient Pall med clinic. Radha Zeng DNP Clinical Director, Palliative Medicine Admission and Anticipated Discharge Date Admission Date: March 29, 2022 Subjective pt feeling ok, pain is managed, using meds as needed. denies n/v/d abd distension about the same walking length of the unit with PT, needs to use walker. feeling some strength return, trying to walk daily no SOB or chest pain seen at bedside with her sister Hannah and her mom present she is anxious to head to rehab, states her meeting with Dr Meyer was helpful for understanding the steps that need to happen: rehab, improve strength, follow up in OP oncology for re eval and determine if chemo is appropriate at that time. Anticipated time frame is 2-4 weeks. Review of Systems Review of Systems: All systems reviewed & are unremarkable except as noted in Subjective Physical Exam Physical Exam: Patient is seen while lying in bed. She is thin, [id number] appearing. No bitemp wasting. PERRL, EOMIs. Her mucosa is slightly dry. Her dentition is intact. Her skin is delicate and somewhat dry. Her heart tones are normal. S1S2 without any murmur noted. There is no JVD. Chest sounds are clear anteriorly with no wheezes, Rales or rhonchi. Abdomen is more distended than my prior exam. It is firm to palpation. Bowel sounds are diminished. ++tenderness noted with palpation throughout greater on the right than the left. She is moving her extremities and strength is diminished but equal bilaterally. Sensation is intact. She is awake alert and oriented x3. She is able to follow commands and she is cooperative with this examiner. Results & Data ([facility]) Vital Signs (Past 12 Hours) Vital Signs Temp Pulse Resp BP Pulse Ox O2 Del Method 04/12/22 12:53 36.7 C 87 16 107/70 95 Room Air 04/12/22 07:39 36.4 C L 94 H 18 99/63 L 95 Room Air Laboratory Results reviewed Diagnostic Findings reviewed PG Care Time/CCT Total # of Minutes Spent Total Time Spent with Patient: Total time spent is greater than 50% in coordination of care (as documented) at patient's floor/unit and/or counseling patient:total time 60 min [place] [address] Subseq Hosp Care Lvl 3 Patient Type Established History Detailed Exam Detailed Medical Decision Making Moderate Complexity Diagnoses Palliative care encounter Z51.5 Cancer related pain G89.3 Advanced care planning/counseling discussion Z71.89 Adenocarcinoma, colon C18.9 Cachexia R64
--- NOTE | 2022-04-12 20:01 | CT Scan Report ---
CT OF THE HEAD WITHOUT CONTRAST CLINICAL HISTORY: Fall. COMPARISON STUDY: MRI of the brain April 11, 2022. CT DOSE: 614.27 mGy.cm TECHNIQUE: Helical axial images of the head were obtained without IV contrast. Automated exposure con trol was utilized for the study. A dose lowering technique was utilized adhering to the principles o f ALARA. FINDINGS: No acute intracranial hemorrhage, midline shift or mass effect is present. The ventricular system is unremarkable. The basal cisterns are patent. No extra-axial collections are present. There are no findings to suggest acute dural sinus thrombosis or acute territorial infarct. No significant calvarial abnormalities are present. Visualized portions of the sinuses and mastoid air cells are charlie ar. IMPRESSION: 1. No acute intracranial findings. 2. No acute calvarial fracture. ACT 112: Negative or not required by law. Electronically signed by: Devonte Devine M.D. 04/12/2022 7:59 PM
[2022-04-12] MEDS ORDERED: DICLOFENAC SOD 1% GEL 100 GM TUBE EXT PRN (21:12)
[2022-04-13] MEDS: MoRPHine SULFATE 5 MG/0.25 ML UDP PO PRN ×5 (05:34→19:36)
[2022-04-13] MEDS: HEPARIN 100 UNIT/ML 5ML FLUSH FLUSH PRN (05:42)
[2022-04-13 06:00] LABS: Hematocrit (blood only) 24.1 % (34.1-44.9); Hemoglobin 7.3 g/dl (12.0-16.0); Mean Corpuscular Hemoglobin 26.8 pg (25.0-34.0); Mean Corpuscular Hgb Conc 30.3 g/dL (32.0-36.0); Mean Corpuscular Volume 88.6 fL (80.0-100.0); Mean Platelet Volume 9.9 fL (9.4-12.3); Nucleated RBC # (auto) 0.02 K/uL (0-0); Nucleated RBC % (auto) 0.1 %; Platelet Count 282 K/uL (130-400); RDW Coefficient of Variation 20.8 % (11.5-14.5); RDW Standard Deviation 66.1 fL (36.4-46.3); Red Blood Count 2.72 M/uL (3.93-5.22); White Blood Count 15.69 K/ul (4.8-10.8)
[2022-04-13 06:11] LABS: BUN Creatinine Ratio 27.8 (10-20); Calcium 8.3 mg/dl (8.5-10.1); Creatinine Clr Calc Pharmacy 61.9 ml/min; Est GFR (African American) 107.7 ml/min; Magnesium 2.1 mg/dl (1.7-2.4); Phosphorus 2.9 mg/dl (2.5-4.9); Potassium 3.9 mmol/L (3.5-5.1)
[2022-04-13] MEDS: POLYETHYLENE (MIRALAX) 17 GM PACK PO SCH (08:05)
[2022-04-13] MEDS: LIDOCAINE 5% 1 PATCH TD SCH (08:05)
[2022-04-13] MEDS: ESCITALOPRAM OXALATE 20 MG TAB PO SCH (08:06)
[2022-04-13] MEDS: ARIPiprazole 5 MG TAB PO SCH (08:06)
[2022-04-13] MEDS: PANTOprazole 40 MG TAB PO SCH ×2 (08:07→19:34)
[2022-04-13] MEDS: HEPARIN SOD 5,000 UNIT/0.5 ML VIAL SQ SCH ×2 (08:07→19:34)
[2022-04-13] MEDS: lamoTRIgine 100 MG TAB PO SCH (08:07)
[2022-04-13] MEDS: MAGNESIUM OXIDE 400 MG TAB PO SCH ×2 (08:58→19:34)
[2022-04-13] MEDS: DOCUSATE SODIUM 100 MG CAP PO SCH ×2 (08:58→19:34)
--- NOTE | 2022-04-13 12:38 | Hospitalist Progress Note ---
Date of Service April 13, 2022 Assessment & Plan (1) Colonic mass: (2) Liver masses: (3) Elevated LFTs: Plan This is a 57-year-old female who presents with abdominal pain, ongoing nausea, vomiting, weight loss. She was found to have colon mass with metastases to liver and lungs. 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 GI consulted - Colonoscopy from 04/02 with: - Malignant partially obstructing tumor in the ascending colon. This was found just proximal to the IC valve at 70 cm. Biopsied. Tattooed. Two polyps in the ascending colon. - pathology shows well differentiated adenocarcinoma. Surgery - no plan for surg. intervention at this time Oncology - CTA chest without PE, IV Venofer x2, follow up as outpt. w/ Dr. Meyer Palliative - Roxanol 5mg PO Q2h prn/hold for somnolence or RR<14, order written and will continue IV MS as back up for very severe pain unrelieved by oral meds. Follow up with palliative in outpatient clinic Vascular surgery - S/P port placement by Dr. Presley Dysphagia Esophagitis EGD - Dysphagia likely related to severe esophagitis seen on exam. Start a PPI 40 mg BID taken 30-60 minutes prior to a meal for the next 12 weeks then 40 mg PO daily thereafter. - Typically would recommend a repeat EGD in 8-12 weeks to assess healing however given metastatic colon cancer would recommend discussion of benefit repeating endoscopy given new cancer diagnosis Anemia 2/2 above ongoing illness.Heme/onc following, recommended Venofer x 2 which she has received. Hgb stable @ 8 Another Venofer given 04/11 - discussed w/ Dr. Meyer Leukocytosis No sign of infection; blood culture negative. Received 1 week of Zosyn. Mild Hyponatremia Sodium 128 on admission, possibly from nausea and vomiting.Received fluids. Na mildly improved ~129/130, stable Acute kidney injury --> Creatinine 1.34 on admission Resolved Depression Continue home medications Disposition- Discharge home versus rehab with follow-up with oncology. Case management involved. PT OT ordered. DVT prophylaxis:heparin subq Admission and Anticipated Discharge Date Admission Date: March 29, 2022 Subjective Patient seen in follow-up of nausea vomiting, new finding of colon mass, with metastases to liver, lungs Lying in bed in no acute distress Denies any chest pain, shortness of breath, palpitations, dizziness, or fever. Plan to DC to [facility] / rehab once available Review of Systems Review of Systems: All systems reviewed & are unremarkable except as noted in Subjective Physical Exam Physical Exam: GENERAL: The patient is of moderate build, not in acute distress. HEENT: Pupils equal, round and reactive to light. EOMI. Oral mucosa moist. NECK: No JVD, no neck masses. CARDIOVASCULAR: S1 and S2 heard. Regular rate and rhythm. No murmur, no gallop. RESPIRATORY: Normal AP diameter. No accessory muscle use. No wheezing, no crackles. ABDOMEN: Soft, bowel sounds present.+distention, + mass at RUQ/epigastric region and RLQ. No guarding, no rigidity. NEURO:Awake alert oriented, answering questions appropriately, no facial asymmetry, moves extremities EXTREMITIES: Pedal edema present, no erythema seen. Results & Data Results & Data ([facility]) Vital Signs (Past 12 Hours) Vital Signs Temp Pulse Resp BP Pulse Ox O2 Del Method 04/13/22 07:55 Room Air 04/13/22 07:30 36.5 C 84 16 106/67 95 Room Air Medications Administered Current Inpatient Medications Aripiprazole (Aripiprazole 5 Mg Tab) 7.5 mg PO DAILY [facility] Stop: 05/01/22 08:59 Last Admin: 04/13/22 08:06 Dose: 7.5 mg Diclofenac Sodium (Diclofenac Sod 1% Gel 100 Gm Tube) 2 gm EXT BID PRN; Protocol PRN Reason: Pain Stop: 05/12/22 21:14 Last Admin: 04/13/22 05:45 Dose: 2 gm Docusate Sodium (Docusate Sodium 100 Mg Cap) 100 mg PO BID [facility] Stop: 05/12/22 13:44 Last Admin: 04/13/22 08:58 Dose: 100 mg Escitalopram Oxalate (Escitalopram Oxalate 20 Mg Tab) 20 mg PO DAILY [facility] Stop: 04/29/22 08:59 Last Admin: 04/13/22 08:06 Dose: 20 mg Heparin Sodium (Porcine) (Heparin Sod 5,000 Unit/0.5 Ml Vial) 5,000 units SQ Q12 [facility] Stop: 05/05/22 20:59 Last Admin: 04/13/22 08:07 Dose: 5,000 units Heparin Sodium (Porcine) (Heparin 100 Unit/Ml 5ml Flush) 5 ml FLUSH PRN PRN PRN Reason: Flush Stop: 05/09/22 23:03 Last Admin: 04/13/22 05:42 Dose: 5 ml Hyoscyamine (Hyoscyamine Sulfate 0.125 Mg Tab) 0.125 mg SL Q8H PRN PRN Reason: abdominal cramping Stop: 05/08/22 10:02 Lamotrigine (Lamotrigine 100 Mg Tab) 100 mg PO DAILY [facility] Stop: 04/29/22 08:59 Last Admin: 04/13/22 08:07 Dose: 100 mg Lidocaine (Lidocaine 5% 1 Patch) 1 patch TD QAM [facility] Stop: 05/05/22 14:29 Last Admin: 04/13/22 08:05 Dose: 1 patch Magnesium Oxide (Magnesium Oxide 400 Mg Tab) 400 mg PO BID [facility] Stop: 05/03/22 21:29 Last Admin: 04/13/22 08:58 Dose: 400 mg Miscellaneous (Remove Lidoderm Patch) 1 each N/A DAILY@2100 [facility] Stop: 05/05/22 20:59 Last Admin: 04/12/22 20:51 Dose: 1 each Morphine Sulfate (Morphine Sulfate 5 Mg/0.25 Ml Udp) 5 mg PO Q2H PRN PRN Reason: Pain, dyspnea Stop: 04/20/22 12:05 Last Admin: 04/13/22 11:08 Dose: 5 mg Ondansetron HCl (Ondansetron Inj 2 Mg/Ml 2 Ml Vial) 4 mg IV Q6H PRN PRN Reason: Nausea Stop: 04/28/22 21:38 Last Admin: 04/01/22 17:56 Dose: 4 mg Pantoprazole Sodium (Pantoprazole 40 Mg Tab) 40 mg PO BID [facility] Stop: 05/05/22 20:59 Last Admin: 04/13/22 08:07 Dose: 40 mg Polyethylene Glycol (Polyethylene (Miralax) 17 Gm Pack) 17 gm PO DAILY [facility] Stop: 05/05/22 08:59 Last Admin: 04/13/22 08:05 Dose: 17 gm Simethicone (Simethicone 80 Mg Chew) 80 mg PO Q6H PRN PRN Reason: bloating, doiscomfort Stop: 05/05/22 14:23 Last Admin: 04/11/22 08:52 Dose: 80 mg
[2022-04-14] MEDS: MoRPHine SULFATE 5 MG/0.25 ML UDP PO PRN ×5 (00:59→19:55)
--- NOTE | 2022-04-14 07:34 | Hospitalist Progress Note ---
Date of Service April 14, 2022 Assessment & Plan (1) Colonic mass: (2) Liver masses: (3) Elevated LFTs: Plan This is a 57-year-old female who presents with abdominal pain, ongoing nausea, vomiting, weight loss. She was found to have colon mass with metastases to live r and lungs. 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 GI consulted - Colonoscopy from 04/02 with: - Malignant partially obstructing tumor in the ascending colon. This was found just proximal to the IC valve at 70 cm. Biopsied. Tattooed. Two polyps in the ascending colon. - pathology shows well differentiated adenocarcinoma. Surgery - no plan for surg. intervention at this time Oncology - CTA chest without PE, IV Venofer x2, follow up as outpt. w/ Dr. Meyer Palliative - Roxanol 5mg PO Q2h prn/hold for somnolence or RR<14, order written and will continue IV MS as back up for very severe pain unrelieved by oral meds. Follow up with palliative in outpatient clinic Vascular surgery - S/P port placement by Dr. Presley Dysphagia Esophagitis EGD - Dysphagia likely related to severe esophagitis seen on exam. Start a PPI 40 mg BID taken 30-60 minutes prior to a meal for the next 12 weeks then 40 mg PO daily thereafter. - Typically would recommend a repeat EGD in 8-12 weeks to assess healing however given metastatic colon cancer would recommend discussion of benefit repeating endoscopy given new cancer diagnosis Anemia 2/2 above ongoing illness.Heme/onc following, recommended Venofer x 2 which she has received. Hgb stable @ 7-8 Another Venofer given 04/11 - discussed w/ Dr. Meyer Leukocytosis No sign of infection; blood culture negative. Received 1 week of Zosyn. Mild Hyponatremia Sodium 128 on admission, possibly from nausea and vomiting.Received fluids. Na mildly improved ~129/130, stable Acute kidney injury --> Creatinine 1.34 on admission Resolved Depression Continue home medications Disposition- Discharge home versus rehab with follow-up with oncology. Case management involved. PT OT ordered. DVT prophylaxis:heparin subq Admission and Anticipated Discharge Date Admission Date: March 29, 2022 Subjective Patient seen in follow-up of nausea vomiting, new finding of colon mass, with metastases to liver, lungs Lying in bed in no acute distress Denies any chest pain, shortness of breath, palpitations, dizziness, or fever. Plan to DC to [facility] / rehab once available Review of Systems Review of Systems: All systems reviewed & are unremarkable except as noted in Subjective Physical Exam Physical Exam: GENERAL: The patient is of moderate build, not in acute distress. HEENT: Pupils equal, round and reactive to light. EOMI. Oral mucosa moist. NECK: No JVD, no neck masses. CARDIOVASCULAR: S1 and S2 heard. Regular rate and rhythm. No murmur, no gallop. RESPIRATORY: Normal AP diameter. No accessory muscle use. No wheezing, no crackles. ABDOMEN: Soft, bowel sounds present.+distention, + mass at RUQ/epigastric region and RLQ. No guarding, no rigidity. NEURO:Awake alert oriented, answering questions appropriately, no facial asymmetry, moves extremities EXTREMITIES: LE edema present, no erythema seen. Results & Data Results & Data ([facility]) Vital Signs (Past 12 Hours) Vital Signs Temp Pulse Resp BP Pulse Ox O2 Del Method 04/14/22 07:20 36.6 C 86 16 103/65 94 Room Air 04/13/22 22:49 36.6 C 90 16 112/67 92 Room Air Medications Administered Current Inpatient Medications Aripiprazole (Aripiprazole 5 Mg Tab) 7.5 mg PO DAILY [facility] Stop: 05/01/22 08:59 Last Admin: 04/13/22 08:06 Dose: 7.5 mg Diclofenac Sodium (Diclofenac Sod 1% Gel 100 Gm Tube) 2 gm EXT BID PRN; Protocol PRN Reason: Pain Stop: 05/12/22 21:14 Last Admin: 04/13/22 05:45 Dose: 2 gm Docusate Sodium (Docusate Sodium 100 Mg Cap) 100 mg PO BID [facility] Stop: 05/12/22 13:44 Last Admin: 04/13/22 19:34 Dose: 100 mg Escitalopram Oxalate (Escitalopram Oxalate 20 Mg Tab) 20 mg PO DAILY [facility] Stop: 04/29/22 08:59 Last Admin: 04/13/22 08:06 Dose: 20 mg Heparin Sodium (Porcine) (Heparin Sod 5,000 Unit/0.5 Ml Vial) 5,000 units SQ Q12 [facility] Stop: 05/05/22 20:59 Last Admin: 04/13/22 19:34 Dose: 5,000 units Heparin Sodium (Porcine) (Heparin 100 Unit/Ml 5ml Flush) 5 ml FLUSH PRN PRN PRN Reason: Flush Stop: 05/09/22 23:03 Last Admin: 04/13/22 05:42 Dose: 5 ml Hyoscyamine (Hyoscyamine Sulfate 0.125 Mg Tab) 0.125 mg SL Q8H PRN PRN Reason: abdominal cramping Stop: 05/08/22 10:02 Lamotrigine (Lamotrigine 100 Mg Tab) 100 mg PO DAILY [facility] Stop: 04/29/22 08:59 Last Admin: 04/13/22 08:07 Dose: 100 mg Lidocaine (Lidocaine 5% 1 Patch) 1 patch TD QAM [facility] Stop: 05/05/22 14:29 Last Admin: 04/13/22 08:05 Dose: 1 patch Magnesium Oxide (Magnesium Oxide 400 Mg Tab) 400 mg PO BID [facility] Stop: 05/03/22 21:29 Last Admin: 04/13/22 19:34 Dose: 400 mg Miscellaneous (Remove Lidoderm Patch) 1 each N/A DAILY@2100 [facility] Stop: 05/05/22 20:59 Last Admin: 04/13/22 19:53 Dose: Not Given Morphine Sulfate (Morphine Sulfate 5 Mg/0.25 Ml Udp) 5 mg PO Q2H PRN PRN Reason: Pain, dyspnea Stop: 04/20/22 12:05 Last Admin: 04/14/22 00:59 Dose: 5 mg Ondansetron HCl (Ondansetron Inj 2 Mg/Ml 2 Ml Vial) 4 mg IV Q6H PRN PRN Reason: Nausea Stop: 04/28/22 21:38 Last Admin: 04/01/22 17:56 Dose: 4 mg Pantoprazole Sodium (Pantoprazole 40 Mg Tab) 40 mg PO BID [facility] Stop: 05/05/22 20:59 Last Admin: 04/13/22 19:34 Dose: 40 mg Polyethylene Glycol (Polyethylene (Miralax) 17 Gm Pack) 17 gm PO DAILY [facility] Stop: 05/05/22 08:59 Last Admin: 04/13/22 08:05 Dose: 17 gm Simethicone (Simethicone 80 Mg Chew) 80 mg PO Q6H PRN PRN Reason: bloating, doiscomfort Stop: 05/05/22 14:23 Last Admin: 04/11/22 08:52 Dose: 80 mg
[2022-04-14] MEDS: HEPARIN SOD 5,000 UNIT/0.5 ML VIAL SQ SCH ×2 (08:50→19:56)
[2022-04-14] MEDS: MAGNESIUM OXIDE 400 MG TAB PO SCH ×2 (08:50→19:56)
[2022-04-14] MEDS: ESCITALOPRAM OXALATE 20 MG TAB PO SCH (08:50)
[2022-04-14] MEDS: ARIPiprazole 5 MG TAB PO SCH (08:51)
[2022-04-14] MEDS: DOCUSATE SODIUM 100 MG CAP PO SCH ×2 (08:51→19:56)
[2022-04-14] MEDS: lamoTRIgine 100 MG TAB PO SCH (08:51)
[2022-04-14] MEDS: POLYETHYLENE (MIRALAX) 17 GM PACK PO SCH (08:51)
[2022-04-14] MEDS: PANTOprazole 40 MG TAB PO SCH ×2 (08:51→19:56)
[2022-04-14] MEDS: LIDOCAINE 5% 1 PATCH TD SCH (08:51)
[2022-04-14] MEDS: FUROSEMIDE 20 MG TAB PO SCH (11:23)
[2022-04-15] MEDS: HEPARIN 100 UNIT/ML 5ML FLUSH FLUSH PRN (07:20)
[2022-04-15] MEDS: MoRPHine SULFATE 5 MG/0.25 ML UDP PO PRN ×3 (07:26→19:40)
[2022-04-15] MEDS: PANTOprazole 40 MG TAB PO SCH ×2 (07:27→19:40)
[2022-04-15] MEDS: ARIPiprazole 5 MG TAB PO SCH (07:27)
[2022-04-15] MEDS: FUROSEMIDE 20 MG TAB PO SCH (07:27)
[2022-04-15] MEDS: MAGNESIUM OXIDE 400 MG TAB PO SCH ×2 (07:27→19:40)
[2022-04-15] MEDS: DOCUSATE SODIUM 100 MG CAP PO SCH ×2 (07:27→19:39)
[2022-04-15] MEDS: HEPARIN SOD 5,000 UNIT/0.5 ML VIAL SQ SCH ×2 (07:27→19:39)
[2022-04-15] MEDS: lamoTRIgine 100 MG TAB PO SCH (07:28)
[2022-04-15] MEDS: POLYETHYLENE (MIRALAX) 17 GM PACK PO SCH (07:28)
[2022-04-15] MEDS: ESCITALOPRAM OXALATE 20 MG TAB PO SCH (07:28)
[2022-04-15] MEDS: LIDOCAINE 5% 1 PATCH TD SCH (07:28)
--- NOTE | 2022-04-15 07:31 | Hospitalist Progress Note ---
Date of Service April 15, 2022 Assessment & Plan (1) Colonic mass: (2) Liver masses: (3) Elevated LFTs: Plan This is a 57-year-old female who presents with abdominal pain, ongoing nausea, vomiting, weight loss. She was found to have colon mass with metastases to live r and lungs. 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 GI consulted - Colonoscopy from 04/02 with: - Malignant partially obstructing tumor in the ascending colon. This was found just proximal to the IC valve at 70 cm. Biopsied. Tattooed. Two polyps in the ascending colon. - pathology shows well differentiated adenocarcinoma. Surgery - no plan for surg. intervention at this time Oncology - CTA chest without PE, IV Venofer x3, follow up as outpt. w/ Dr. Meyer Palliative - Roxanol 5mg PO Q2h prn/hold for somnolence or RR<14. Follow up with palliative in outpatient clinic Vascular surgery - S/P port placement by Dr. Presley Dysphagia Esophagitis EGD - Dysphagia likely related to severe esophagitis seen on exam. Start a PPI 40 mg BID taken 30-60 minutes prior to a meal for the next 12 weeks then 40 mg PO daily thereafter. - Typically would recommend a repeat EGD in 8-12 weeks to assess healing however given metastatic colon cancer would recommend discussion of benefit repeating endoscopy given new cancer diagnosis Anemia 2/2 above ongoing illness.Heme/onc following, recommended Venofer x 3 which she has received. Hgb stable @ 7-8 Leukocytosis No sign of infection; blood culture negative. Received 1 week of Zosyn. Mild Hyponatremia Sodium 128 on admission, possibly from nausea and vomiting.Received fluids. Na mildly improved ~129/130, stable Acute kidney injury --> Creatinine 1.34 on admission Resolved Depression Continue home medications Disposition- Discharge home versus rehab with follow-up with oncology. Case management involved. PT OT ordered. DVT prophylaxis:heparin subq Admission and Anticipated Discharge Date Admission Date: March 29, 2022 Subjective Patient seen in follow-up of nausea vomiting, new finding of colon mass, with metastases to liver, lungs Lying in bed in no acute distress Denies any chest pain, shortness of breath, palpitations, dizziness, or fever. Plan to DC to [facility] / rehab once available Review of Systems Review of Systems: All systems reviewed & are unremarkable except as noted in Subjective Physical Exam Physical Exam: GENERAL: The patient is of moderate build, not in acute distress. HEENT: Pupils equal, round and reactive to light. EOMI. Oral mucosa moist. NECK: No JVD, no neck masses. CARDIOVASCULAR: S1 and S2 heard. Regular rate and rhythm. No murmur, no gallop. RESPIRATORY: Normal AP diameter. No accessory muscle use. No wheezing, no crackles. ABDOMEN: Soft, bowel sounds present.+distention, + mass at RUQ/epigastric region and RLQ. No guarding, no rigidity. NEURO:Awake alert oriented, answering questions appropriately, no facial asymmetry, moves extremities EXTREMITIES: LE edema present, no erythema seen. Results & Data Results & Data ([facility]) Vital Signs (Past 12 Hours) Vital Signs Temp Pulse Pulse Resp BP Pulse Ox O2 Del Method 04/15/22 07:25 36.5 C 83 16 100/62 96 Room Air 04/14/22 21:43 36.8 C 85 16 102/65 94 Room Air Laboratory Results 04/15/22 04/15/22 Range/Units 07:09 07:09 Hgb 7.4 L (12.0-16.0) g/dl Hct 23.5 L (34.1-44.9) % Sodium 134 L (136-145) mmol/L Potassium 3.9 (3.5-5.1) mmol/L Chloride 103 (98-107) mmol/L Carbon Dioxide 24 (21-32) mmol/L Anion Gap 7 (3-11) BUN 20 (6-23) mg/dl Creatinine 0.53 L (0.6-1.2) mg/dl Est Cr Clr Drug Dosing 84.1 ml/min Est GFR ( Amer) 122.2 ml/min Est GFR (Non-Af Amer) 105.4 ml/min BUN/Creatinine Ratio 37.7 H (10-20) Glucose 78 (70-99(Fasting)) mg/dl Calcium 8.0 L (8.5-10.1) mg/dl Phosphorus 3.8 (2.5-4.9) mg/dl Magnesium 2.0 (1.7-2.4) mg/dl Medications Administered Current Inpatient Medications Aripiprazole (Aripiprazole 5 Mg Tab) 7.5 mg PO DAILY [facility] Stop: 05/01/22 08:59 Last Admin: 04/15/22 07:27 Dose: 7.5 mg Diclofenac Sodium (Diclofenac Sod 1% Gel 100 Gm Tube) 2 gm EXT BID PRN; Protocol PRN Reason: Pain Stop: 05/12/22 21:14 Last Admin: 04/13/22 05:45 Dose: 2 gm Docusate Sodium (Docusate Sodium 100 Mg Cap) 100 mg PO BID [facility] Stop: 05/12/22 13:44 Last Admin: 04/15/22 07:27 Dose: 100 mg Escitalopram Oxalate (Escitalopram Oxalate 20 Mg Tab) 20 mg PO DAILY [facility] Stop: 04/29/22 08:59 Last Admin: 04/15/22 07:28 Dose: 20 mg Furosemide (Furosemide 20 Mg Tab) 20 mg PO QAM [facility] Stop: 05/14/22 11:14 Last Admin: 04/15/22 07:27 Dose: 20 mg Heparin Sodium (Porcine) (Heparin Sod 5,000 Unit/0.5 Ml Vial) 5,000 units SQ Q12 [facility] Stop: 05/05/22 20:59 Last Admin: 04/15/22 07:27 Dose: 5,000 units Heparin Sodium (Porcine) (Heparin 100 Unit/Ml 5ml Flush) 5 ml FLUSH PRN PRN PRN Reason: Flush Stop: 05/09/22 23:03 Last Admin: 04/13/22 05:42 Dose: 5 ml Hyoscyamine (Hyoscyamine Sulfate 0.125 Mg Tab) 0.125 mg SL Q8H PRN PRN Reason: abdominal cramping Stop: 05/08/22 10:02 Lamotrigine (Lamotrigine 100 Mg Tab) 100 mg PO DAILY [facility] Stop: 04/29/22 08:59 Last Admin: 04/15/22 07:28 Dose: 100 mg Lidocaine (Lidocaine 5% 1 Patch) 1 patch TD QAM [facility] Stop: 05/05/22 14:29 Last Admin: 04/15/22 07:28 Dose: 1 patch Magnesium Oxide (Magnesium Oxide 400 Mg Tab) 400 mg PO BID [facility] Stop: 05/03/22 21:29 Last Admin: 04/15/22 07:27 Dose: 400 mg Miscellaneous (Remove Lidoderm Patch) 1 each N/A DAILY@2100 [facility] Stop: 05/05/22 20:59 Last Admin: 04/14/22 19:57 Dose: 1 each Morphine Sulfate (Morphine Sulfate 5 Mg/0.25 Ml Udp) 5 mg PO Q2H PRN PRN Reason: Pain, dyspnea Stop: 04/20/22 12:05 Last Admin: 04/15/22 07:26 Dose: 5 mg Ondansetron HCl (Ondansetron Inj 2 Mg/Ml 2 Ml Vial) 4 mg IV Q6H PRN PRN Reason: Nausea Stop: 04/28/22 21:38 Last Admin: 04/01/22 17:56 Dose: 4 mg Pantoprazole Sodium (Pantoprazole 40 Mg Tab) 40 mg PO BID [facility] Stop: 05/05/22 20:59 Last Admin: 04/15/22 07:27 Dose: 40 mg Polyethylene Glycol (Polyethylene (Miralax) 17 Gm Pack) 17 gm PO DAILY [facility] Stop: 05/05/22 08:59 Last Admin: 04/15/22 07:28 Dose: 17 gm Simethicone (Simethicone 80 Mg Chew) 80 mg PO Q6H PRN PRN Reason: bloating, doiscomfort Stop: 05/05/22 14:23 Last Admin: 04/11/22 08:52 Dose: 80 mg
[2022-04-15 07:41] LABS: Hematocrit (blood only) 23.5 % (34.1-44.9); Hemoglobin 7.4 g/dl (12.0-16.0)
[2022-04-15 08:06] LABS: BUN Creatinine Ratio 37.7 (10-20); Creatinine Clr Calc Pharmacy 84.1 ml/min; Est GFR (African American) 122.2 ml/min; Est GFR (Non-African American) 105.4 ml/min; Phosphorus 3.8 mg/dl (2.5-4.9); Potassium 3.9 mmol/L (3.5-5.1)
[2022-04-16] MEDS: MoRPHine SULFATE 5 MG/0.25 ML UDP PO PRN ×3 (01:22→15:06)
--- NOTE | 2022-04-16 08:00 | Hospitalist Progress Note ---
Date of Service April 16, 2022 Assessment & Plan (1) Colonic mass: (2) Liver masses: (3) Elevated LFTs: Plan This is a 57-year-old female who presents with abdominal pain, ongoing nausea, vomiting, weight loss. She was found to have colon mass with metastases to live r and lungs. 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 GI consulted - Colonoscopy from 04/02 with: - Malignant partially obstructing tumor in the ascending colon. This was found just proximal to the IC valve at 70 cm. Biopsied. Tattooed. Two polyps in the ascending colon. - pathology shows well differentiated adenocarcinoma. Surgery - no plan for surg. intervention at this time Oncology - CTA chest without PE, IV Venofer x3, follow up as outpt. w/ Dr. Meyer Palliative - Roxanol 5mg PO Q8h scheduled and Q2h prn/hold for somnolence or RR<14. Follow up with palliative in outpatient clinic Vascular surgery - S/P port placement by Dr. Presley Dysphagia Esophagitis EGD - Dysphagia likely related to severe esophagitis seen on exam. Start a PPI 40 mg BID taken 30-60 minutes prior to a meal for the next 12 weeks then 40 mg PO daily thereafter. - Typically would recommend a repeat EGD in 8-12 weeks to assess healing however given metastatic colon cancer would recommend discussion of benefit repeating endoscopy given new cancer diagnosis Anemia 2/2 above ongoing illness.Heme/onc following, recommended Venofer x 3 which she has received. Hgb stable @ 7-8 Leukocytosis No sign of infection; blood culture negative. Received 1 week of Zosyn. Mild Hyponatremia Sodium 128 on admission, possibly from nausea and vomiting.Received fluids. Na mildly improved ~129/130, stable Acute kidney injury --> Creatinine 1.34 on admission Resolved Depression Continue home medications Disposition- Plan to DC to [facility] DVT prophylaxis:heparin subq Admission and Anticipated Discharge Date Admission Date: March 29, 2022 Subjective Patient seen in follow-up of nausea vomiting, new finding of colon mass, with metastases to liver, lungs Lying in bed in no acute distress Denies any chest pain, shortness of breath, palpitations, dizziness, or fever. Plan to DC to [facility] Family at the bedside Review of Systems Review of Systems: All systems reviewed & are unremarkable except as noted in Subjective Physical Exam Physical Exam: GENERAL: The patient is of moderate build, not in acute distress. HEENT: Pupils equal, round and reactive to light. EOMI. Oral mucosa moist. NECK: No JVD, no neck masses. CARDIOVASCULAR: S1 and S2 heard. Regular rate and rhythm. No murmur, no gallop. RESPIRATORY: Normal AP diameter. No accessory muscle use. No wheezing, no crackles. ABDOMEN: Soft, bowel sounds present.+distention, + mass at RUQ/epigastric region and RLQ. No guarding, no rigidity. NEURO:Awake alert oriented, answering questions appropriately, no facial asymmetry, moves extremities EXTREMITIES: LE edema present, no erythema seen. Results & Data Results & Data ([facility]) Vital Signs (Past 12 Hours) Vital Signs Temp Pulse Pulse Resp BP Pulse Ox O2 Del Method 04/16/22 07:29 36.7 C 84 14 101/65 95 Room Air 04/15/22 21:07 90 04/15/22 21:05 36.8 C 91 H 16 103/63 94 Room Air Medications Administered Current Inpatient Medications Aripiprazole (Aripiprazole 5 Mg Tab) 7.5 mg PO DAILY LATESHA Stop: 05/01/22 08:59 Last Admin: 04/15/22 07:27 Dose: 7.5 mg Diclofenac Sodium (Diclofenac Sod 1% Gel 100 Gm Tube) 2 gm EXT BID PRN; Protocol PRN Reason: Pain Stop: 05/12/22 21:14 Last Admin: 04/13/22 05:45 Dose: 2 gm Docusate Sodium (Docusate Sodium 100 Mg Cap) 100 mg PO BID LATESHA Stop: 05/12/22 13:44 Last Admin: 04/15/22 19:39 Dose: 100 mg Escitalopram Oxalate (Escitalopram Oxalate 20 Mg Tab) 20 mg PO DAILY LATESHA Stop: 04/29/22 08:59 Last Admin: 04/15/22 07:28 Dose: 20 mg Furosemide (Furosemide 20 Mg Tab) 20 mg PO QAM [facility]ESHA Stop: 05/14/22 11:14 Last Admin: 04/15/22 07:27 Dose: 20 mg Heparin Sodium (Porcine) (Heparin Sod 5,000 Unit/0.5 Ml Vial) 5,000 units SQ Q12 LATESHA Stop: 05/05/22 20:59 Last Admin: 04/15/22 19:39 Dose: 5,000 units Heparin Sodium (Porcine) (Heparin 100 Unit/Ml 5ml Flush) 5 ml FLUSH PRN PRN PRN Reason: Flush Stop: 05/09/22 23:03 Last Admin: 04/15/22 07:20 Dose: 5 ml Hyoscyamine (Hyoscyamine Sulfate 0.125 Mg Tab) 0.125 mg SL Q8H PRN PRN Reason: abdominal cramping Stop: 05/08/22 10:02 Lamotrigine (Lamotrigine 100 Mg Tab) 100 mg PO DAILY [facility] Stop: 04/29/22 08:59 Last Admin: 04/15/22 07:28 Dose: 100 mg Lidocaine (Lidocaine 5% 1 Patch) 1 patch TD QAM [facility] Stop: 05/05/22 14:29 Last Admin: 04/15/22 07:28 Dose: 1 patch Magnesium Oxide (Magnesium Oxide 400 Mg Tab) 400 mg PO BID [facility] Stop: 05/03/22 21:29 Last Admin: 04/15/22 19:40 Dose: 400 mg Miscellaneous (Remove Lidoderm Patch) 1 each N/A DAILY@2100 [facility] Stop: 05/05/22 20:59 Last Admin: 04/15/22 19:40 Dose: 1 each Morphine Sulfate (Morphine Sulfate 5 Mg/0.25 Ml Udp) 5 mg PO Q2H PRN PRN Reason: Pain, dyspnea Stop: 04/20/22 12:05 Last Admin: 04/16/22 07:33 Dose: 5 mg Ondansetron HCl (Ondansetron Inj 2 Mg/Ml 2 Ml Vial) 4 mg IV Q6H PRN PRN Reason: Nausea Stop: 04/28/22 21:38 Last Admin: 04/01/22 17:56 Dose: 4 mg Pantoprazole Sodium (Pantoprazole 40 Mg Tab) 40 mg PO BID [facility] Stop: 05/05/22 20:59 Last Admin: 04/15/22 19:40 Dose: 40 mg Polyethylene Glycol (Polyethylene (Miralax) 17 Gm Pack) 17 gm PO DAILY [facility] Stop: 05/05/22 08:59 Last Admin: 04/15/22 07:28 Dose: 17 gm Simethicone (Simethicone 80 Mg Chew) 80 mg PO Q6H PRN PRN Reason: bloating, doiscomfort Stop: 05/05/22 14:23 Last Admin: 04/11/22 08:52 Dose: 80 mg
[2022-04-16] MEDS: ESCITALOPRAM OXALATE 20 MG TAB PO SCH (09:07)
[2022-04-16] MEDS: FUROSEMIDE 20 MG TAB PO SCH (09:07)
[2022-04-16] MEDS: PANTOprazole 40 MG TAB PO SCH (09:07)
[2022-04-16] MEDS: ARIPiprazole 5 MG TAB PO SCH (09:07)
[2022-04-16] MEDS: DOCUSATE SODIUM 100 MG CAP PO SCH (09:07)
[2022-04-16] MEDS: MAGNESIUM OXIDE 400 MG TAB PO SCH (09:07)
[2022-04-16] MEDS: lamoTRIgine 100 MG TAB PO SCH (09:07)
[2022-04-16] MEDS: POLYETHYLENE (MIRALAX) 17 GM PACK PO SCH (09:10)
[2022-04-16] MEDS: LIDOCAINE 5% 1 PATCH TD SCH (09:10)
[2022-04-16] MEDS: HEPARIN SOD 5,000 UNIT/0.5 ML VIAL SQ SCH (09:12)
--- NOTE | 2022-04-16 13:35 | Discharge Summary ---
Date of Service April 16, 2022 Admission HPI Per Admitting Provider A 57-year-old female with past medical history significant for depression, presents with abdominal pain, nausea, vomiting. She lives [employer] in [place] and [employer] in [place]. Her doctors are in [place]. Her mother also lives part-time in [place] and part-time in [place]. She came for Thanksgiving yesterday to her mother's place and because of her symptoms, her mother brought her to the hospital today. The patient says she is having dull aching abdominal pain, mostly epigastric and left upper quadrant region, 4/10 in severity, constant pain for last couple of months . Also nausea dn not able to keep anything don for last few weeks. Lost 20 pounds in last 2-3 months.Denies any blood in stools or black stools. No constipation or diarrhea. Normal bladder movements. She says she is micturating a lot, but denies any hematuria. She has some swelling in the legs, says that this is there for last couple of weeks. Denies any chest pain, no shortness of breath, no headache, no runny nose, no sore throat, no cough, no fevers. Currently, resting comfortably and hemodynamically stable. Admission Exam Per Admitting Provider GENERAL: The patient is of moderate build, not in acute distress. VITAL SIGNS: Temperature 36.4, pulse 80, respiratory rate 18, blood pressure 138/86, oxygen 95% on room air. HEENT: Pupils equal, round and reactive to light. Oral mucosa moist. NECK: No JVD, no neck masses. CARDIOVASCULAR: S1 and S2 heard. Regular rate and rhythm. No murmur, no gallop. RESPIRATORY SYSTEM: Normal AP diameter. No accessory muscle use. No wheezing, no crackles. ABDOMEN: Soft, bowel sounds present. Tenderness in the left upper quadrant region. No guarding, no rigidity, no distention. CENTRAL NERVOUS SYSTEM: Cranial nerves II through XII grossly intact, nonfocal. EXTREMITIES: Pedal edema present, no erythema seen. 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 HEENT: Pupils equal, round and reactive to light. EOMI. Oral mucosa moist. NECK: No JVD, no neck masses. CARDIOVASCULAR: S1 and S2 heard. Regular rate and rhythm. No murmur, no gallop. RESPIRATORY: Normal AP diameter. No accessory muscle use. No wheezing, no crackles. ABDOMEN: Soft, bowel sounds present.+distention, + mass at RUQ/epigastric region and RLQ. No guarding, no rigidity. NEURO:Awake alert oriented, answering questions appropriately, no facial asymmetry, moves extremities EXTREMITIES: LE edema present, no erythema seen. Discharge Data Allergies Allergy/AdvReac Type Severity Reaction Status Date / Time No Known Allergies Allergy Verified 04/02/22 08:22 Consultations 03/29/22 19:08 ED Decision to Admit Stat 03/30/22 08:00 Consult Gastroenterology Routine 03/30/22 10:30 Consult Oncology Routine 03/30/22 10:31 Consult General Surgery Routine 04/04/22 08:00 Consult Palliative Care Routine 04/04/22 09:18 Consult Psychiatry Routine 04/05/22 18:54 Consult Vascular Surgery Routine Procedures Performed Operation Date: 04/02/22 16:30 Actual Procedures p Colonoscopy Biopsy Cytology - Flory Barrera, Operation Date: 04/05/22 16:30 Actual Procedures p Esophagogastroduodenoscopy - Flory Barrera, Operation Date: 04/09/22 10:50 Actual Procedures p Aport Insertion, Right Internal Jugular Approach, Ultrasound Localization of Right Internal Jugular Veing, Fluroscopy for Positioning, Moderate Sedation [id number](Right) - Jim Presley MD Ordered Studies 03/29/22 16:37 CT abd pelvis IV con only Stat IMPRESSION: 1. There is an approximately 5 cm mass lesion of the ascending colon. A colonic neoplasm is the diagnosis of exclusion. 2. The liver is enlarged and diffusely infiltrated by hepatic metastatic disease. 3. Multifocal pulmonary metastatic disease is seen at the lung bases. 4. Metastatic lymphadenopathy is seen in the upper abdomen. 5. The colonic mass causes colocolonic intussusception. No obstruction is seen. 6. Small volume of abdominopelvic ascites. 7. The kidneys enhance heterogeneously. Correlate with clinical findings and urinalysis. 03/29/22 21:39 US liver Urgent IMPRESSION: 1. The liver is enlarged and diffusely infiltrated by metastatic disease. 2. No gallstones are identified. US venous doppler LE BI Urgent IMPRESSION: 1. There is no sonographic evidence of deep venous thrombosis identified in the right or left lower extremity. 2. Left popliteal cyst. 03/30/22 13:37 CT angio chest PE protocol Urgent IMPRESSION: 1. No evidence of pulmonary embolism. 2. Numerous pulmonary nodules as above compatible with metastatic disease. 3. Partial visualization of hepatic metastases. 04/04/22 13:30 FL barium swallow Routine 04/06/22 14:09 US abdomen ltd ascites Routine FINDINGS/IMPRESSION: A small amount of ascites is seen in the right lower quadrant and midline pelvis. 04/09/22 07:20 EV Aport insertion Routine 04/09/22 08:50 US EV guide vascular access Routine 04/11/22 10:43 MR brain wo/w con Routine IMPRESSION: Multiple T2 hyperintensities are seen which likely reflect age-related demyelinating changes. There is a punctate focus of enhancement in the right cerebellum without associated edema which is unlikely to represent a metastasis. 04/12/22 18:26 CT head/brain wo con Stat IMPRESSION: 1. No acute intracranial findings. 2. No acute calvarial fracture. Hospital Course (1) Colonic mass: (2) Liver masses: (3) Elevated LFTs: Plan This is a 57-year-old female who presents with abdominal pain, ongoing nausea, vomiting, weight loss. She was found to have colon mass with metastases to liver and lungs. 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 GI consulted - Colonoscopy from 04/02 with: - Malignant partially obstructing tumor in the ascending colon. This was found just proximal to the IC valve at 70 cm. Biopsied. Tattooed. Two polyps in the ascending colon. - pathology shows well differentiated adenocarcinoma. Surgery - no plan for surg. intervention at this time Oncology - CTA chest without PE, IV Venofer x3, follow up as outpt. w/ Dr. Meyer Palliative - Roxanol 5mg PO Q8h scheduled and Q2h prn/hold for somnolence or RR<14. Follow up with palliative in outpatient clinic Vascular surgery - S/P port placement by Dr. Presley Dysphagia Esophagitis EGD - Dysphagia likely related to severe esophagitis seen on exam. Start a PPI 40 mg BID taken 30-60 minutes prior to a meal for the next 12 weeks then 40 mg PO daily thereafter. - Typically would recommend a repeat EGD in 8-12 weeks to assess healing however given metastatic colon cancer would recommend discussion of benefit repeating endoscopy given new cancer diagnosis Anemia 2/2 above ongoing illness.Heme/onc following, recommended Venofer x 3 which she has received. Hgb stable @ 7-8 Leukocytosis No sign of infection; blood culture negative. Received 1 week of Zosyn. Mild Hyponatremia Sodium 128 on admission, possibly from nausea and vomiting.Received fluids. 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 Meyer. Take pantoprazole twice a day for next 12 weeks, then take it only daily. Recommend magnesium supplement for next few days, then discuss further with your healthcare providers. Strongly recommended to have good nutrition, please make sure you drink protein shakes such as Boost or Ensure. Use morphine for pain, every 8 hours scheduled, and every 2 hours as needed. Use Colace, and/or MiraLAX or some other stool softener, while using morphine, to prevent constipation. Pending Studies at Discharge: No Stand-Alone Forms: My [facility] Skilled Items Patient informed of condition?: Yes DNR: Yes Discharge Level of Care: Acute rehab Communicable Disease: No Discharge Prognosis: Other Lines: None Urinary Catheter: No Medications and DC Order Prescriptions: New pantoprazole 40 mg Tablet,Delayed Release (Dr/Ec) 40 mg PO BID Qty: 60 0RF docusate sodium 100 mg Capsule 100 mg PO BID Qty: 14 0RF magnesium oxide 400 mg (241.3 mg magnesium) Tablet 400 mg PO DAILY Qty: 7 0RF furosemide 20 mg Tablet 20 mg PO Q OTHER DAY Qty: 7 0RF morphine concentrate 100 mg/5 mL (20 mg/mL) Solution 5 mg PO Q2H PRN (Reason: pain) Qty: 15 0RF heparin, porcine (PF) 5,000 unit/0.5 mL Syringe 5,000 unit subcut Q12 Qty: 25 0RF Continued lamotrigine 100 mg tablet 100 mg PO DAILY escitalopram oxalate 20 mg tablet 20 mg PO DAILY aripiprazole 5 mg tablet 5 mg PO DAILY Discharge Orders: Discharge Order (Routine); Ordered 04/16/22 Ordered By: Nghia Vo Admission Data Admit Date/Time: 03/29/22 20:36 Attending Provider: Nghia Vo Admit Provider: Tin Clancy Primary Care Provider: PCP,NO Other Providers: Kayy Rodriguez ; [facility] ; Nithin Jacobs ; Tin Clancy ; Fani Mcdonough ; Jemma Gallegos ; Romel Gao ; Sneha Walton ; Gemini Lucio ; Haylee Prater ; Whit Ren ; Jim Presley ; Yoandy Arvizu Other Interventions: Discharge Summary Assessment (RN) Last Done: 04/02/22 09:59
--- NOTE | 2022-04-16 14:46 | Palliative Care Progress Note ---
Date of Service April 16, 2022 Assessment & Plan (1) Palliative care encounter: Plan: Stage IV met adeno ca colon. Ky shares that all of the information and discoveries that have been made in the last few weeks started to really hit her this weekend. She feels that she has been almost forcing herself to try and be optimistic for her friends and family especially is more visitors have been coming to see her and expressing that same sentiment, "stay positive. Fight this. You will do great." She feels very overwhelmed and almost as if she would disappoint everyone if she were to admit feeling worried, scared or wanting to explore issues about her own mortality. She is tearful as she shares with me how she is struggling to except that she does not have an unlimited amount of time. She also adds that this was not what she thought she would be thinking about her age. She has in the same timeframe found to appreciate relationships in her life with her friends and family and she is very clear that no matter what if time is short, she wants to be at home with her parents, her family and her friends. Ky and I spoke about what her goals are for herself at this time. She tells me that she is willing to try rehab because she does feel very weak and wonders if rehab would help her feel little bit stronger and maybe then she would be able to try some chemotherapy. She knows that the chemo will not cure her. She knows that the goal of the chemotherapy is to try to slow down the progression of her cancer. We spoke about how there is strong evidence supporting the initiation of Palliative Care into the management of this patient with advanced met lung cancer; palliative care, when provided alongside oncologic care, leads to improved QOL, fewer depressive symptoms, better prognosis understanding and longer median survival joshua when given the overall poor prognosis and QOL issues at hand. (Leroy et al. (2010). Early palliative care for patients with metastatic fdr-ugoso-kdcl lung cancer. Ragland J of Med 363(1), 733-742. Doi: 10.1056/[id number].) Specifically discussed with him that sometimes in a very weak or deconditioned patient, chemo may be more hurtful than helpful and may potentially cut their time shorter than if they did not have chemo at all. She notes that she feels that she has had several setbacks since being admitted especially in terms of declining strengths, performance status, worsening edema, worsening liver function, anemia, and progressive weakness. We explored her feelings around the implications of not regaining enough strength to try chemotherapy. She states that she has been thinking about this a lot. She then adds that ultimately no matter what if she does not have a lot of time left she really just wants to be home with her family. We discussed her life in her home in [place] and the love she has for that setting. She states that while she very much [place], at this stage I time is running short she would rather be close to her family and in her childhood home with her parents. She feels a great amount of comfort and safety being at home with her parents at this stage. Ky and I spoke about the options moving forward: Proceed with the discharge to [facility] and see how it goes. If at any point she decides it is not helping, she is getting worse, or simply she just hates being there, then she can be discharged home and if she wishes she can proceed with some home-based private physical therapy. She would then proceed to keep her appointment with Dr. Meyer at the end of the month where she would be reassessed in terms of candidacy for chemotherapy. We also discussed the option of being discharged directly home with the addition of home-based physical therapy. She admits that this is what she feels she would most want but feels also that she would get more help and intensive therapy if she were to go to [facility]. She is nervous at the thought of trying chemotherapy and recalls from her conversation with Dr. Meyer that sometimes chemotherapy may hurt more than it would help. She admits that she has a hard time speaking about these issues with her family. She is worried about disappointing them. She is worried about them being upset or angry with her. She has lived most of her life trying to do everything they have asked of her and living up to their expectations. She does feel a strong amount of support from her friends group: Padmini, Collette, and Zhane. Ultimately, Ky would like to try rehab and so she is willing to proceed with a discharge as planned at 4:15pm today to rehab at [facility]. She asked if I would have a family meeting with her family and closest friends to share our above discussion and to help her explain to them that she is both worried and scared. Family meeting was held from 1 PM to 2:15 PM. Present at this meeting were patient's parents, her Sister Demetria, and her friends Padmini, Collette and Zhane. Additionally present with Umu from case management. A detailed discussion was held providing a broad overview of the nature of patient's cancer (it is advanced, incurable, and she has declining performance status) as well as the medical concerns of her additional increasing complications (increasing abdominal distention, generalized edema, progressive weakness, falls, some mentation cloudiness, liver dysfunction, anemia).we also spent a fair amount of time specifically discussing Ky's overwhelming concerns and fears about letting everyone down. I reviewed with the group that at the end of the day everything that is happening is happening to the person in the bed. Therefore, no matter what we think should be done or ought to be tried, we have to bear in mind first and foremost that all of those therapies, medications, interventions etc. would be happening to Ky and along with that would be that all of the side effects, toxicities, complications or poor outcomes could potentially also happen to Ky. I reinforced the Ky shared to very specific goals: No matter what else happens, she wants to be in her childhood home and make the most of what ever time remains with her parents, her family and her friends. She also wants to be home for Outlook. This goal is shared by her family, but also especially her mother, Seda. I advised that I did not believe [facility] would want to do more than 1 to 2 weeks of rehab, which is also what Dr. Araujo had advised. I empowered patient to set the boundaries and limits of her time at [facility] with the [facility] team as soon as she is admitted, and to let them know her goal is to be home before Outlook. I told her would probably be most helpful if she could give them a specific date by which she wanted to be discharged so that everything could be in order and arranged for her. I also advised her that should she arrived at the rehab center, and then feel that it is not suitable for her or she is not comfortable there or anything else there is causing her distress, then she can leave rehab and come home for private therapy can then be initiated. I also told her that should she feel any weaker or more decline in spite of rehab, then the likelihood that we would be able to initiate any chemotherapy is extremely low if not altogether not likely and therefore I would encourage her return home where we could focus on quality of life and symptom management all while maximizing her time with her family and friends. All questions answered to their satisfaction. I reinforced that the priority is to always be sure we are doing what Ky wants for herself and that we are advocating for her needs, wishes and goals. For now, the overall goal is to optimize her conditioning which may hopefully then allow a trial of chemo. She is aware she can stop if it is not being tolerated. Ky then stated that she just wanted everybody to hear all of this news altogether and have their questions answered so that there was no confusion or misunderstanding. She also shared that she is does not want to let anyone down but she needs them to know how much she is struggling and suffering. She admitted to being fearful as she knows her mortality is coming sooner than she would have liked. Her entire group of friends and family were extremely supportive and reassured her they would remain through her side. They were all extremely appreciative of all hospital, medical and nursing teams and providers caring for her. (2) Cancer related pain: Plan: Currently using morphine liquid 5 mg every 2 hours as needed. I recommended to the primary team that this be moved to 5 mg by mouth every 8 hours and continue a as needed dose of 5 mg every 2 hours in between as needed for breakthrough pain or prior to intensive physical therapy. (3) Advanced care planning/counseling discussion: Plan: Please see extensive family discussion outlined above. (4) Adenocarcinoma, colon: Plan: Stage IV metastatic adeno CA of the colon. Patient with mets to liver, lungs, growing weakness, declining performance status, increasing abdominal girth, increasing generalized edema. (5) Cachexia: Plan: Supplemental nutrition modalities reviewed with pt and reccs made for methods to amplify nutrition. Plan Plan as outlined above. I will follow pt in outpatient [facility] clinic. Radha Zeng DNP Clinical Director, Palliative Medicine Admission and Anticipated Discharge Date Admission Date: March 29, 2022 Subjective Family seen earlier this morning, no visitors present. She is a little tearful today and shares that she anticipates a discharge to rehab. She is nervous about her overall outcomes. She states she has just felt suddenly overwhelmed with all the information she has received in the last 2 weeks. She states that she has been trying to stay positive and optimistic for friends and family but it has had been at the expense of her own emotional wellbeing. She feels extremely worried about the overall prognosis and the short amount of time she likely has. She also worries about the effect that her illness, its prognosis, caring for her and ultimately her will have on her family. She also worries for her friends. She has been able to tolerate 50 to 75% of most meals. She is trying to drink at least 1-2 boost shakes per day. She is sipping on water or eating ice chips. She has required a bed guard so that she does not get out of bed without assistance due to her fall last week. She denies nausea. She does feel that her pain has increased. She states that she found herself trying to take the medicine a little bit more regularly for pain and notes that it has been helping. She feels a generalized weakness. She is tired from minimal activities. Review of Systems Review of Systems: All systems reviewed & are unremarkable except as noted in Subjective Physical Exam Physical Exam: Patient is seen while lying in bed. She is thin, ojmbu-dui-[id number] appearing. No bitemp wasting. PERRL, EOMIs. Her mucosa is slightly dry. Her dentition is intact. Her skin is delicate and somewhat dry. Her heart tones are normal. S1S2, no m/g/r. No JVD. Chest sounds are clear anteriorly with no wheezes, Rales or rhonchi. Abdomen is more distended than my prior exam. It is firm and tender to palpation. Bowel sounds are diminished. ++tenderness noted with palpation throughout greater on the right than the left. She is moving her extremities and strength is diminished but equal bilaterally. Sensation is intact. She is AAO x3. She is able to follow commands and she is cooperative with this examiner. Results & Data ([facility]) Vital Signs (Past 12 Hours) Vital Signs Temp Pulse Pulse Resp BP Pulse Ox O2 Del Method 04/16/22 12:59 36.7 C 95 H 13 102/66 94 Room Air 04/16/22 08:22 36.7 C 86 12 106/70 95 Room Air 04/16/22 07:29 36.7 C 84 14 101/65 95 Room Air PG Care Time/CCT Total # of Minutes Spent Total Time Spent: 135 Total Time Spent with Patient: Total time spent is greater than 50% in coordination of care (as documented) at patient's floor/unit and/or counseling patient: I spent 135 minutes overall addressing this case, over 3 visits throughout the day and 2 separate advance care planning/goals of care meetings first held with patient on her own and then larger meeting held with family at patient's request.: 10 in medical data review/discussion with referring provider(s) and/or preparation for the visit 45 in direct interaction with the patient during initial visit this morning and then additional family meeting for advance care planning outlined in the next section 60 Advance Care Planning/Goals of Care discussions as detailed above in note (must be >16min) 10 in subsequent review and synthesis of assessment and plan 10 in communicating with other providers regarding the patient's case: Primary team, case management, nursing. Prolonged Care Time Prolonged Care Time: Yes Advanced Care Planning 53802 Advanced Care Planning 30 [place] [address] Subseq Hosp Care Lvl 3 Patient Type Established History Detailed Exam Detailed Medical Decision Making High Complexity Diagnoses Palliative care encounter Z51.5 Cancer related pain G89.3 Advanced care planning/counseling discussion Z71.89 Adenocarcinoma, colon C18.9 Cachexia R64 Additional Codes Prolonged Care Time - Prolonged Care Time: Yes ([id number]) Advanced Care Planning - 79087 Advanced Care Planning 30 Min: [id number] Advanced Care Planning 30 Min ([id number])
[2022-04-16] MEDS: HEPARIN 100 UNIT/ML 5ML FLUSH FLUSH PRN (15:09)
== END 2022-04-16 16:12 | DRG 375 ==
LOC: ED 16:02 → 3E 20:36 → SUATTDRO 20:36 → 3E 22:32